=== PATIENT | male | born 1955 | race Two or more races ===

== ENCOUNTER 2024-12-07 00:42 | Inpatient (IN) | payer MEDICARE, OTHER ==
[~2024-12-07] VITALS: Ht 172.7 cm; Wt 74.0 kg
[2024-12-07 01:19] LABS: Hematocrit 22.4 % (41.0-53.0); Hemoglobin 7.6 g/dL (13.5-17.5); Mean Corpuscular Hemoglobin 27.1 pg (28.0-32.0); Mean Corpuscular Volume 80.3 fL (80.0-100.0); Nucleated Red Blood Cells % 0.1 %
--- NOTE | 2024-12-07 01:30 | ED.PDOC ---
History of Present Illness HPI Comments 69 y/o M, with a history of DM, presents with c/c of abnormal labs. Per EMS personnel report, patient received a call from his vascular physician after having outpatient lab work performed, earlier, and was advised to come to the ED. He reports on being told on ahving abnormally elevated blood glucose and po tassium levels. Patient is otherwise asymptomatic. Notable recent history of 1st great toe amputation of right foot. Time Seen by MD: 00:50 Reviewed Notes: Nurses Notes, Director Internal Control Notes, Medications, Allergies Allergies: Coded Allergies: NO KNOWN ALLERGIES (Unverified , 12/07/24) Information Source: Patient, Emergency Med Personnel Mode of Arrival: EMS Severity: Moderate Timing: Hours Duration: Since onset Prehospital treatment: None Past Medical History PAST MEDICAL HISTORY: DM Surgical History (Other): 1st digit on right foot amputation 5th digit on left foot amputation Family History Family History: Unknown Social History Smoker: Non-Smoker Alcohol: Denies ETOH Use Drugs: Denies Drug Use Lives In: Home All Other Systems: Reviewed and Negative (Comprehensive review of systems are negative unless stated in HPI) Physical Exam General Appearance: No Apparent Distress, Normal HEENT: Normal ENT Inspection, Pharynx Normal, TMs Normal Neck: Full Range of Motion, Non-Tender, Normal, Normal Inspection Respiratory: Chest Non-Tender, Lungs Clear, No Accessory Muscle Use, No Respiratory Distress, Normal Breath Sounds Cardiovascular: No Edema, No JVD, No Murmur, No Gallop, Normal Peripheral Pulses, Regular Rate/Rhythm Breast Exam: Deferred Gastrointestinal: No Organomegaly, Non Tender, No Pulsatile Mass, Normal Bowel Sounds, Soft Genitalia: Deferred Pelvic: Deferred Rectal: Deferred Extremities: No calf tenderness, Normal capillary refill, Normal range of motion, Non-tender, No pedal edema, Other (5th digit amputation to left foot; recent 1st digit amputation to right foot; dry gangrene to the 2nd right foot ) Musculoskeletal : Apperance: Normal Neurologic: Alert, systems qa analyst II-XII nml as Tested, No Motor Deficits, Normal Affect, Normal Mood, No Sensory Deficits Cerebellar Function: Normal Reflexes: Normal Skin: Dry, Normal Color, Warm, Other (dry gangrene to the 2nd right foot ) Lymphatic: No Adenopathy Was a procedure done? Was a procedure done?: No Differential Dx Considerations may include: unhealing diabetic foot wound, hyperkalemia, hyperglycemia, dehydration, electrolyte imbalance, among others X-Ray, Labs, Meds, VS Vital Signs Date Time Temp Pulse Resp B/P (MAP) Pulse Ox O2 Delivery O2 Flow Rate FiO2 12/07/24 02:10 105 90 Room Air* 0 21 12/07/24 02:10 98.7 105 15 170/84 (112) 90 98.7 12/07/24 01:11 113 12/07/24 01:10 98.2 120 18 189/98 99 98.2 Lab Test 12/07/24 01:00 Range/Units White Blood Count 9.2 4.4-10.8 10^3/uL Red Blood Count 2.79 L 4.5-5.90 10^6/uL Hemoglobin 7.6 L 13.5-17.5 g/dL Hematocrit 22.4 L 41.0-53.0 % Mean Corpuscular Volume 80.3 80.0-100.0 fL Mean Corpuscular Hemoglobin 27.1 L 28.0-32.0 pg Mean Corpuscular Hemoglobin Concent 33.8 32.0-36.0 g/dL Red Cell Distribution Width 13.9 11.8-14.3 % Platelet Count 579 H 140-450 10^3/uL Mean Platelet Volume 7.6 6.9-10.8 fL Neutrophils (%) (Auto) 84.3 H 37.0-80.0 % Lymphocytes (%) (Auto) 6.4 L 10.0-50.0 % Monocytes (%) (Auto) 6.4 0.0-12.0 % Eosinophils (%) (Auto) 1.5 0.0-7.0 % Basophils (%) (Auto) 1.4 0.0-2.0 % Neutrophils # (Auto) 7.7 1.6-8.6 10 ^3/uL Lymphocytes # (Auto) 0.6 0.4-5.4 10 ^3/uL Monocytes # (Auto) 0.6 0-1.3 10 ^3/uL Eosinophils # (Auto) 0.1 0-0.8 10 ^3/uL Basophils # (Auto) 0.1 0-0.2 10 ^3/uL Nucleated Red Blood Cells 0.1 % Prothrombin Time 11.3 9.3-11.8 sec Prothrombin Time INR 1.07 0.9-1.15 Activated Partial Thromboplast Time 28.5 24.5-34.5 SEC Sodium Level 135 L 136-145 mmol/L Potassium Level 5.3 H 3.5-5.1 mmol/L Chloride Level 100 98-107 mmol/L Carbon Dioxide Level 24 20-31 mmol/L Anion Gap 11 5-15 Blood Urea Nitrogen 25 H 9-23 mg/dL Creatinine 1.64 H 0.700-1.30 mg/dL Glomerular Filtration Rate Calc 46 >90 mL/min BUN/Creatinine Ratio 15.2 10.0-20.0 Serum Glucose 279 H 74-106 mg/dL Lactic Acid Level 1.2 0.4-2.0 mmol/L Calcium Level 8.6 L 8.7-10.4 mg/dL Total Bilirubin 0.3 0.2-1.0 mg/dL Aspartate Amino Transferase (AST) 12 L 13-40 U/L Alanine Aminotransferase (ALT) 13 7-40 U/L Alkaline Phosphatase 177 H 46-116 U/L Total Protein 7.2 5.7-8.2 g/dL Albumin 3.9 3.2-4.8 g/dL Time of 1ST Reevaluation: 01:20 Reevaluation 1ST: Unchanged Patient Education/Counseling: Diagnosis, Treatment, Need For Follow Up Family Education/Counseling: No Family Present SEPSIS Sepsis Screen Physician Orders Blood Culture (12/07/24 00:58) R Foot 3 View Xray (12/07/24 00:58) Chest Xray 1 View (12/07/24 00:58) Electrocardigram (12/07/24 01:18) Sodium Zirconium Cyclosilicate (Lokelma) (12/07/24 03:00) Vital Signs Date Time Temp Pulse Resp B/P (MAP) Pulse Ox O2 Delivery O2 Flow Rate FiO2 12/07/24 02:10 105 90 Room Air* 0 21 12/07/24 02:10 98.7 105 15 170/84 (112) 90 98.7 12/07/24 01:11 113 12/07/24 01:10 98.2 120 18 189/98 99 98.2 Laboratory Tests Test 12/07/24 01:00 Lactic Acid Level 1.2 mmol/L (0.4-2.0) White Blood Count 9.2 10^3/uL (4.4-10.8) Departure 1 Departure Time of Disposition: 02:51 Impression: Primary Impression: Cellulitis of right foot Additional Impressions: Dry gangrene Acute renal injury Hyperkalemia Anemia of chronic disease Type 2 diabetes mellitus with hyperglycemia Disposition: HOME / SELF CARE / HOMELESS Condition: Stable Discharged With: Self Comments 69-year-old male with recent right great toe amputation and poorly controlled diabetes now with right foot cellulitis, dry gangrene of right 2nd toe and acute renal injury with hyperkalemia. Patient was given Ancef and vancomycin antibiotics. Patient was given IV fluids and insulin. Patient will need to be admitted for supportive care and further workup. Critical Care Note Critical Care Time?: No Stability Stability form required: No Heart Score Heart Score: Heart Score Response (Comments) Value History N/A 0 EKG N/A 0 Age N/A 0 Risk Factors N/A 0 Troponin N/A 0 Total 0 I personally scribed for JAYDEN BETANCOURT MD ([email or web address]) on 12/07/24 at 01:30. Electronically submitted by Davian Brady ([email or web address]). JAYDEN BETANCOURT MD Dec 07, 2024 01:30
[2024-12-07 01:36] LABS: Alanine Aminotransferase 13 U/L (7-40); Albumin 3.9 g/dL (3.2-4.8); Anion Gap 11 (5-15); BUN/Creatinine Ratio 15.2 (10.0-20.0); Bilirubin, Total 0.3 mg/dL (0.2-1.0); Carbon Dioxide 24 mmol/L (20-31); Chloride 100 mmol/L (98-107); Total Protein 7.2 g/dL (5.7-8.2)
[2024-12-07 01:39] LABS: Alkaline Phosphatase 177 U/L (46-116); Blood Urea Nitrogen 25 mg/dL (9-23); Calcium 8.6 mg/dL (8.7-10.4); Glucose 279 mg/dL (74-106); Potassium 5.3 mmol/L (3.5-5.1); Sodium 135 mmol/L (136-145)
[2024-12-07 01:40] LABS: INR 1.07 (0.9-1.15); Partial Thromboplastin Time 28.5 SEC (24.5-34.5); Prothrombin Time 11.3 sec (9.3-11.8)
[2024-12-07 02:10] VITALS: PULSE 105; O2SAT 90
--- NOTE | 2024-12-07 02:12 | DVH ---
CHEST RADIOGRAPH Indication: SOB Technique: Single frontal view of the chest was obtained COMPARISON: XR CHEST 1 VIEW on DOS: 10/05/24 FINDINGS: Lines and Tubes: None Lungs: Diffuse increased prominence of the pulmonary vasculature and interstitium. No evidence of foc al consolidation. Pleura: No effusion. No pneumothorax. Cardiomediastinal contours: Unremarkable Bones: Unremarkable IMPRESSION: 1. Findings suggestive of pulmonary vascular congestion/interstitial edema.
--- NOTE | 2024-12-07 02:12 | DVH ---
CLINICAL INDICATION: right 2nd toe gangrene TECHNIQUE: XY R FOOT 3 VIEW XRAY Comparison: XR FOOT COMP RT on DOS: 10/05/24 FINDINGS/IMPRESSION: : Partial amputation of the 1st ray at the level of the proximal metatarsal diaphysis with expected ove rlying soft tissue changes. Scattered subcutaneous emphysema. No definite radiographic evidence of os teomyelitis. No evidence of acute osseous abnormality. The visualized joint spaces are well preserve d.
[2024-12-07] MEDS: VANCOMYCIN 1GM/250ML KIT 250 ML IV ONE (03:00)
[2024-12-07] MEDS: ceFAZolin 1GM/50ML 50 ML IV ONE (03:00)
[2024-12-07] MEDS: SODIUM ZIRCONIUM CYCL 10 GM PAK PO ONE (03:01)
[2024-12-07] MEDS: SODIUM CHLORIDE 0.9% 1,000 ML IV ONE (03:05)
[2024-12-07] MEDS: InsuLIN REG 1unit/0.01ml Soln (100units/ml) SC ONE (03:27)
[2024-12-07] MEDS: AMPICILLIN & SULBACTAM SODIUM 3 GM in SODIUM CHL 0.9% 100 ML IV ONE (03:45)
[2024-12-07] MEDS: hydrALAZINE HCL 20 MG/ML VL IV ONE (04:41)
[2024-12-07] MEDS: ALBUTEROL SULF 2.5 MG/0.5ML(0.5%) NEB SOLN NEB STA (04:54)
[2024-12-07] MEDS: IPRATROPIUM BROM 0.5 MG/2.5ML INH SOL NEB STA (04:54)
--- NOTE | 2024-12-07 05:37 | ECG ---
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
[2024-12-07] MEDS ORDERED: MORPHINE SULFATE INJ 2 MG/ml SYRG IV PRN (06:30)
[2024-12-07] MEDS ORDERED: SODIUM CHLORIDE 0.9% 1,000 ML IV ONE (06:30)
[2024-12-07] MEDS ORDERED: NITROGLYCERIN 0.4 MG SL TAB SL PRN (06:30)
[2024-12-07] MEDS: InsuLIN REG 1unit/0.01ml Soln (100units/ml) SC SCH ×2 (07:00→23:33)
[2024-12-07] MEDS ORDERED: DEXTROSE (50%) 50ML SYRG IV PRN (07:00)
[2024-12-07] MEDS: FUROSEMIDE 40 MG/4 ML VIAL IV ONE ×3 (07:13→16:44)
[2024-12-07] MEDS: ACCU-CHEK COMFORT CURVE STRIP VI SCH (07:15)
[2024-12-07 07:40] VITALS: PULSE 108; RESP 14; O2SAT 93
[2024-12-07 08:23] LABS: Base Excess -3.5 mmol/L (-2.0-3.0)
[2024-12-07] MEDS: PIPERACILLIN-TAZOB 3.375GM 100 ML IV SCH (08:30)
--- NOTE | 2024-12-07 08:55 | DVH ---
Procedure: CT CHEST WITHOUT CONTRAST Reason for study/Clinical History: pna/chf Comparison Study: XY CHEST XRAY 1 VIEW on DOS: 12/07/24, XR CHEST 1 VIEW on DOS: 10/05/24 TECHNIQUE: Multidetector CT of the chest was performed from the lung apices to the upper abdomen with out the use of intravenous contract. Axial, coronal and sagittal multiplanar reformats were performed . Radiation Dose Information: CT Dose: CTDI volume is 12.67 mGy. Dose-length product is 476.26 mGy*cm The dose indicators for CT are the volume Computed Tomography (CT) Dose Index (CTDIvol) and the Dose Length Product (DLP), and are measured in units of mGy and mGy-cm, respectively. These indicators are not patient dose, but values generated from the CT scanner acquisition factors. The report includes radiation exposure data for exposures received during this examination. FINDINGS: Lower neck: Unremarkable. Lungs: Patchy bilateral lower lobe airspace disease. Diffuse interlobular septal thickening. No focal consolidation. No suspicious pulmonary nodule. Heart/Vascular Structures: Cardiomegaly. Coronary artery calcifications. Vascular calcifications of t he aorta. No pericardial effusion. Lymph Nodes: No adenopathy. Pleura: Small bilateral pleural effusions. Musculoskeletal: No acute osseous abnormality. Soft tissues: Normal. Upper abdomen: Limited portions of the upper abdomen are unremarkable. IMPRESSION: Patchy bilateral lower lobe airspace disease. Diffuse interlobular septal thickening. Small bilateral pleural effusions. Cardiomegaly. Findings are suggestive of CHF/ pulmonary edema. Radiation optimization: All CT scans at this facility use at least one of these dose optimization kelly hniques: automated exposure control mA and/or kV adjustment per patient size (includes targeted exam s where dose is matched to clinical indication) or iterative reconstruction.
--- NOTE | 2024-12-07 09:09 | DVHHP2 ---
Admitting Diagnosis: Acute on chronic renal failure with hyperkalemia. Foot cellulitis with gangrene History of Present Illness HPI 69-year-old male with marginally cotrolled DM, amputated right big toe was referred to the ER by his doctor for further evaluation and therapy. His outpatient lab results were abnormal with elevated Cr, BUN, potassium level, glucose level. Patient has had right foot swelling and the second toe infection for several days. Past Medical History Cardiac: HTN, Hyperlipidemia, Other (obesity) Endocrine: NIDDM Review of Systems Musculoskeletal: Foot pain H&P Exam Vital Signs Vital Signs Date Time Temp Pulse Resp B/P (MAP) Pulse Ox O2 Delivery O2 Flow Rate FiO2 12/07/24 08:27 98.2 108 14 151/78 (102) 93 98.2 12/07/24 07:40 Simple Mask* 6 50 General Appeara: Obese Head Exam: Normal inspection Neck Exam: Non-tender Eye Exam: bilateral eye PERRL, bilateral eye EOMI Pulmonary/Respiratory: Crackles Cardiovascular/Chest: Tachycardia Abdominal Exam: Soft Foot: right foot ecchymosis, right foot infection, right foot swelling Neuro/Mental St: Alert, Oriented SEPSIS Sepsis Screen Date sepsis recognized/suspect: Dec 07, 2024 Time Sepsis recognized/suspect: 0740 Recent Procedure: Yes (1 MONTH AGO ) On Antibiotic Therapy: Yes Respiratory Rate >20: No Heart Rate >90: Yes Temp<36 C (96.8 F) or >38.3 C: No SBP <90 or MAP <65 mmHG: No New Acute Mental Status Change: No Is the patient on CPAP, BIPAP,: No Physician Orders Blood Culture (12/07/24 00:58) R Foot 3 View Xray (12/07/24 00:58) Chest Xray 1 View (12/07/24 00:58) Admit (12/07/24 06:30) Complete Blood Count (12/08/24 06:30) Comprehensive Metabolic Panel (12/08/24 06:30) Nitroglycerin Sublingual (Ntrostat Subli (12/07/24 06:30) Morphine Sulfate Injection (12/07/24 06:30) Stat Ekg For Chest Pain (12/07/24 06:30) Notify Of Changes From Base (12/07/24 06:30) Manager Pricing For 24 Hours (12/07/24 06:30) Emergency Dysrhythmia Protocol (12/07/24 06:30) Rhythm Strips Once Every Shift (12/07/24 06:30) Oxygen By Nasal Cannula (12/07/24 06:30) *[facility] (12/07/24 06:30) Vancomycin Per Pharmacy Protoc (12/07/24 06:30) Glucose Blood (Accu-Chek Comfort Curve T (12/07/24 07:00) Insulin R (Human) (Insulin R) (12/07/24 22:00) Insulin R (Human) (Insulin R) (12/07/24 07:00) Dextrose 50% Syringe (12/07/24 07:00) Echo 2d Mode Cardiac Dop (12/07/24 07:16) *Consult Dr.Mukeshchandra Brody (12/07/24 07:16) Chest Without Contrast (12/07/24 07:16) Abg W/ Co-Ox (12/07/24 07:16) Complete Blood Count (12/08/24 05:00) Complete Blood Count (12/09/24 05:00) Complete Blood Count (12/10/24 05:00) Complete Blood Count (12/11/24 05:00) Complete Blood Count (12/12/24 05:00) Complete Blood Count (12/13/24 05:00) Complete Blood Count (12/14/24 05:00) Complete Blood Count (12/15/24 05:00) Complete Blood Count (12/16/24 05:00) Complete Blood Count (12/17/24 05:00) Complete Blood Count (12/18/24 05:00) Basic Metabolic Panel (12/08/24 05:00) Basic Metabolic Panel (12/09/24 05:00) Basic Metabolic Panel (12/10/24 05:00) Basic Metabolic Panel (12/11/24 05:00) Basic Metabolic Panel (12/12/24 05:00) Basic Metabolic Panel (12/13/24 05:00) Basic Metabolic Panel (12/14/24 05:00) Basic Metabolic Panel (12/15/24 05:00) Basic Metabolic Panel (12/16/24 05:00) Basic Metabolic Panel (12/17/24 05:00) Basic Metabolic Panel (12/18/24 05:00) *Podiatry Consult Rosalina([facility]) (12/07/24 07:16) Urinalysis (12/07/24 07:22) Prothrombin Time W/ Inr (12/07/24 07:22) *Consult Dr. Fran Riley (12/07/24 07:22) Complete Blood Count (12/07/24 08:03) Basic Metabolic Panel (12/07/24 08:03) Hemoglobin A1c (12/07/24 08:04) B-Type Natriuretic Peptide (12/07/24 08:15) Communication Order (12/07/24 08:24) Piperacillin-Tazob 3.375gm (Zosyn 3.375g (12/07/24 08:30) Vital Signs Date Time Temp Pulse Resp B/P (MAP) Pulse Ox O2 Delivery O2 Flow Rate FiO2 12/07/24 08:27 98.2 108 14 151/78 (102) 93 98.2 12/07/24 07:40 108 14 93 Simple Mask* 6 50 12/07/24 07:30 151/78 12/07/24 07:13 137/68 12/07/24 05:00 119 29 163/84 (110) 98 12/07/24 04:58 25 98 Simple Mask* 10 99 12/07/24 04:41 186/100 12/07/24 04:00 115 25 164/86 (112) 98 12/07/24 03:00 108 19 165/88 (113) 87 12/07/24 02:10 105 90 Room Air* 0 21 12/07/24 02:10 98.7 105 15 170/84 (112) 90 98.7 12/07/24 01:11 113 12/07/24 01:10 98.2 120 18 189/98 99 98.2 Laboratory Tests Test 12/07/24 01:00 Lactic Acid Level 1.2 mmol/L (0.4-2.0) White Blood Count 9.2 10^3/uL (4.4-10.8) Medications Medications Dose Ordered Sig/Jessica Route Start Time Stop Time Status Last Admin Dose Admin Albuterol 5 mg ONCE STAT NEB 12/07/24 04:44 12/07/24 04:47 DC 12/07/24 04:54 5 MG Diagnostic Test (Pha) 1 strip ACHS 12/07/24 07:00 12/07/24 07:15 1 STRIP Furosemide 40 mg ONCE ONCE IV 12/07/24 06:30 12/07/24 06:50 DC 12/07/24 07:13 40 MG Furosemide 40 mg ONCE ONCE IV 12/07/24 07:30 12/07/24 07:40 DC 12/07/24 07:30 40 MG Hydralazine HCl 20 mg ONCE ONCE IV 12/07/24 04:45 12/07/24 04:46 DC 12/07/24 04:41 20 MG Insulin Human Regular AC SC 12/07/24 07:00 12/07/24 07:00 9 UNITS Insulin Human Regular 4 units ONCE ONCE SC 12/07/24 03:00 12/07/24 03:01 DC 12/07/24 03:27 4 UNITS Ipratropium [place] 0.5 mg ONCE STAT NEB 12/07/24 04:44 12/07/24 04:47 DC 12/07/24 04:54 0.5 MG Sodium Chloride 1,000 ml @ 1,000 mls/hr Q1H ONCE IV 12/07/24 03:00 12/07/24 03:59 DC 12/07/24 03:05 1,000 MLS/HR Zirconium Oxide 10 gm ONCE ONCE PO 12/07/24 03:00 12/07/24 03:01 DC 12/07/24 03:01 10 GM Labs/Xrays Labs Test 12/07/24 08:15 12/07/24 03:12 12/07/24 01:00 Range/Units Blood Gas Specimen Type Arterial Blood Gas Sample Site Right radial Blood Gas Patient Temperature 37.0 Arterial Blood Date Drawn [id number] Arterial Blood pH 7.461 H 7.350-7.450 Arterial Blood Partial Pressure CO2 28.4 L 35.0-48.0 mmHg Arterial Blood Partial Pressure O2 100.9 83.0-108.0 mmHg Arterial Blood HCO3 19.8 L 21.0-28.0 mmol/L Arterial Blood Oxygen Saturation 97.4 94.0-98.0 % Arterial Blood Base Excess -3.5 L -2.0-3.0 mmol/L Arterial Blood Oxyhemoglobin 96.6 94.0-98.0 % Arterial Blood Carboxyhemoglobin 0.2 L 0.5-1.5 % Arterial Blood Methemoglobin 0.6 0.0-1.5 % Samy Test Yes Blood Gas Total Hemoglobin 7.70 L 13.5-17.5 g/dL Blood Gas Liter Flow 6.00 Blood Gas Modality Mask - simple FiO2 % 40.0 POC Glucose 245 H 70-106 mg/dl White Blood Count 9.2 4.4-10.8 10^3/uL Red Blood Count 2.79 L 4.5-5.90 10^6/uL Hemoglobin 7.6 L 13.5-17.5 g/dL Hematocrit 22.4 L 41.0-53.0 % Mean Corpuscular Volume 80.3 80.0-100.0 fL Mean Corpuscular Hemoglobin 27.1 L 28.0-32.0 pg Mean Corpuscular Hemoglobin Concent 33.8 32.0-36.0 g/dL Red Cell Distribution Width 13.9 11.8-14.3 % Platelet Count 579 H 140-450 10^3/uL Mean Platelet Volume 7.6 6.9-10.8 fL Neutrophils (%) (Auto) 84.3 H 37.0-80.0 % Lymphocytes (%) (Auto) 6.4 L 10.0-50.0 % Monocytes (%) (Auto) 6.4 0.0-12.0 % Eosinophils (%) (Auto) 1.5 0.0-7.0 % Basophils (%) (Auto) 1.4 0.0-2.0 % Neutrophils # (Auto) 7.7 1.6-8.6 10 ^3/uL Lymphocytes # (Auto) 0.6 0.4-5.4 10 ^3/uL Monocytes # (Auto) 0.6 0-1.3 10 ^3/uL Eosinophils # (Auto) 0.1 0-0.8 10 ^3/uL Basophils # (Auto) 0.1 0-0.2 10 ^3/uL Nucleated Red Blood Cells 0.1 % Prothrombin Time 11.3 9.3-11.8 sec Prothrombin Time INR 1.07 0.9-1.15 Activated Partial Thromboplast Time 28.5 24.5-34.5 SEC Sodium Level 135 L 136-145 mmol/L Potassium Level 5.3 H 3.5-5.1 mmol/L Chloride Level 100 98-107 mmol/L Carbon Dioxide Level 24 20-31 mmol/L Anion Gap 11 5-15 Blood Urea Nitrogen 25 H 9-23 mg/dL Creatinine 1.64 H 0.700-1.30 mg/dL Glomerular Filtration Rate Calc 46 >90 mL/min BUN/Creatinine Ratio 15.2 10.0-20.0 Serum Glucose 279 H 74-106 mg/dL Lactic Acid Level 1.2 0.4-2.0 mmol/L Calcium Level 8.6 L 8.7-10.4 mg/dL Total Bilirubin 0.3 0.2-1.0 mg/dL Aspartate Amino Transferase (AST) 12 L 13-40 U/L Alanine Aminotransferase (ALT) 13 7-40 U/L Alkaline Phosphatase 177 H 46-116 U/L Total Protein 7.2 5.7-8.2 g/dL Albumin 3.9 3.2-4.8 g/dL Assessment/Plan Problem List: (1) Acute kidney injury superimposed on CKD (2) Cellulitis of right foot (3) Dry gangrene (4) Type 2 diabetes mellitus with hyperglycemia Plan IVF, IV Abx, Podiatry consult, Nephrology consult Plan discussed with: Patient ODETTE LEDBETTER MD Dec 07, 2024 09:09
[2024-12-07 09:21] LABS: Hematocrit 22.1 % (41.0-53.0); Hemoglobin 7.3 g/dL (13.5-17.5); Mean Corpuscular Hemoglobin 26.8 pg (28.0-32.0); Mean Corpuscular Volume 81.3 fL (80.0-100.0); Nucleated Red Blood Cells % 0.0 %
[2024-12-07 09:31] LABS: Chloride 103 mmol/L (98-107); Potassium 4.7 mmol/L (3.5-5.1)
[2024-12-07 09:32] LABS: Anion Gap 10 (5-15); Carbon Dioxide 22 mmol/L (20-31)
[2024-12-07 09:33] LABS: INR 1.13 (0.9-1.15); Prothrombin Time 11.8 sec (9.3-11.8)
[2024-12-07 09:37] LABS: BUN/Creatinine Ratio 16.3 (10.0-20.0); Blood Urea Nitrogen 27 mg/dL (9-23); Calcium 8.1 mg/dL (8.7-10.4); Glucose 190 mg/dL (74-106); Sodium 135 mmol/L (136-145)
[2024-12-07 11:00] VITALS: PULSE 103; RESP 16; O2SAT 100
--- NOTE | 2024-12-07 12:23 | DVHCONRES ---
Date Seen: Dec 07, 2024 Reason for Consultation Right foot gangrene History of Present Illness 69-year-old male with marginally cotrolled DM, amputated right big toe was referred to the ER by his doctor for further evaluation and therapy. His outpatient lab results were abnormal with elevated Cr, BUN, potassium level, glucose level. Patient has had right foot swelling and the second toe infection for several days. Past Medical History See H&P Past Surgical History See H&P Allergies: Coded Allergies: NO KNOWN ALLERGIES (Unverified , 12/07/24) Current Medications Current Medications Medications (Trade) Dose Ordered Sig/Jessica Route PRN Reason Start Time Stop Time Status Last Admin Albuterol (Ventolin Medneb) 5 mg ONCE STAT NEB 12/07/24 04:44 12/07/24 04:47 DC 12/07/24 04:54 Ipratropium [place] (Atrovent Medneb) 0.5 mg ONCE STAT NEB 12/07/24 04:44 12/07/24 04:47 DC 12/07/24 04:54 Nitroglycerin (Ntrostat Sublingual) 0.4 mg Q5MINP PRN SL FOR CHEST PAIN 12/07/24 06:30 Morphine Sulfate 2 mg Q30M PRN IV FOR CHEST PAIN 12/07/24 06:30 Piperacillin Sod/ Tazobactam Sod 100 ml @ 100 mls/hr Q8HR IV 12/07/24 14:00 12/07/24 08:30 DC Diagnostic Test (Pha) (Accu-Chek Comfort Curve T) 1 strip ACHS 12/07/24 07:00 12/07/24 11:30 Insulin Human Regular (InsuLIN R) HS SC 12/07/24 22:00 Insulin Human Regular (InsuLIN R) AC SC 12/07/24 07:00 12/07/24 11:30 Dextrose 50 ml UD PRN IV Blood Sugar LESS THAN 60 12/07/24 07:00 Piperacillin Sod/ Tazobactam Sod 100 ml @ 25 mls/hr Q8HR IV 12/07/24 08:30 12/07/24 08:30 Furosemide (Lasix Injection) 40 mg DAILY IV 12/08/24 10:00 Vital Signs Vital Signs Date Time Temp Pulse Resp B/P (MAP) Pulse Ox O2 Delivery O2 Flow Rate FiO2 12/07/24 08:27 98.2 108 14 151/78 (102) 93 98.2 12/07/24 07:40 Simple Mask* 6 50 Physical Exam Dermatological: Skin is dry with mild erythema and some maceration around the wound site No gross deformities noted Mild non-pitting edema present bilaterally Gangrene right foot toe with some surrounding cellulitis and medial foot wound Vascular: Dorsalis pedis and posterior tibial pulses are 1+ bilaterally Capillary refill is under 2 seconds Skin temperature is warm bilaterally Neurologic: Protective sensation is absent on the plantar forefoot bilaterally Monofilament testing reveals decreased sensation in multiple plantar sites Musculoskeletal: Range of motion at the ankle and MTP joints is within normal limits. Strength is 5/5 in all tested muscle groups. Gait is antalgic due to offloading of the affected limb. Labs/Diagnostic Data Labs Test 12/07/24 11:38 12/07/24 08:58 12/07/24 08:15 12/07/24 01:00 Range/Units POC Glucose 131 H 70-106 mg/dl White Blood Count 12.1 #H 4.4-10.8 10^3/uL Red Blood Count 2.73 L 4.5-5.90 10^6/uL Hemoglobin 7.3 L 13.5-17.5 g/dL Hematocrit 22.1 L 41.0-53.0 % Mean Corpuscular Volume 81.3 80.0-100.0 fL Mean Corpuscular Hemoglobin 26.8 L 28.0-32.0 pg Mean Corpuscular Hemoglobin Concent 32.9 32.0-36.0 g/dL Red Cell Distribution Width 13.8 11.8-14.3 % Platelet Count 571 H 140-450 10^3/uL Mean Platelet Volume 7.7 6.9-10.8 fL Neutrophils (%) (Auto) 91.5 H 37.0-80.0 % Lymphocytes (%) (Auto) 3.3 L 10.0-50.0 % Monocytes (%) (Auto) 4.4 0.0-12.0 % Eosinophils (%) (Auto) 0.0 0.0-7.0 % Basophils (%) (Auto) 0.8 0.0-2.0 % Neutrophils # (Auto) 11.1 H 1.6-8.6 10 ^3/uL Lymphocytes # (Auto) 0.4 0.4-5.4 10 ^3/uL Monocytes # (Auto) 0.5 0-1.3 10 ^3/uL Eosinophils # (Auto) 0 0-0.8 10 ^3/uL Basophils # (Auto) 0.1 0-0.2 10 ^3/uL Nucleated Red Blood Cells 0.0 % Prothrombin Time 11.8 9.3-11.8 sec Prothrombin Time INR 1.13 0.9-1.15 Sodium Level 135 L 136-145 mmol/L Potassium Level 4.7 3.5-5.1 mmol/L Chloride Level 103 98-107 mmol/L Carbon Dioxide Level 22 20-31 mmol/L Anion Gap 10 5-15 Blood Urea Nitrogen 27 H 9-23 mg/dL Creatinine 1.66 H 0.700-1.30 mg/dL Glomerular Filtration Rate Calc 45 >90 mL/min BUN/Creatinine Ratio 16.3 10.0-20.0 Serum Glucose 190 H 74-106 mg/dL Hemoglobin A1c 9.8 H <5.7 % A1C Calcium Level 8.1 L 8.7-10.4 mg/dL B-Type Natriuretic Peptide 1619.77 0-100 pg/mL Blood Gas Specimen Type Arterial Blood Gas Sample Site Right radial Blood Gas Patient Temperature 37.0 Arterial Blood Date Drawn [id number] Arterial Blood pH 7.461 H 7.350-7.450 Arterial Blood Partial Pressure CO2 28.4 L 35.0-48.0 mmHg Arterial Blood Partial Pressure O2 100.9 83.0-108.0 mmHg Arterial Blood HCO3 19.8 L 21.0-28.0 mmol/L Arterial Blood Oxygen Saturation 97.4 94.0-98.0 % Arterial Blood Base Excess -3.5 L -2.0-3.0 mmol/L Arterial Blood Oxyhemoglobin 96.6 94.0-98.0 % Arterial Blood Carboxyhemoglobin 0.2 L 0.5-1.5 % Arterial Blood Methemoglobin 0.6 0.0-1.5 % Samy Test Yes Blood Gas Total Hemoglobin 7.70 L 13.5-17.5 g/dL Blood Gas Liter Flow 6.00 Blood Gas Modality Mask - simple FiO2 % 40.0 Activated Partial Thromboplast Time 28.5 24.5-34.5 SEC Lactic Acid Level 1.2 0.4-2.0 mmol/L Total Bilirubin 0.3 0.2-1.0 mg/dL Aspartate Amino Transferase (AST) 12 L 13-40 U/L Alanine Aminotransferase (ALT) 13 7-40 U/L Alkaline Phosphatase 177 H 46-116 U/L Total Protein 7.2 5.7-8.2 g/dL Albumin 3.9 3.2-4.8 g/dL Problems(with codes): (1) Hyperkalemia (2) Anemia of chronic disease (3) Cellulitis of right foot (4) Dry gangrene (5) Type 2 diabetes mellitus with hyperglycemia (6) Acute renal injury (7) Acute kidney injury superimposed on CKD Plan/Recommendation ASSESSMENT: Patient is a 69 year old seen on the floor for a worsening ulcer PLAN: - The patients chart was reviewed, clinical findings were discussed with the patient, the etiologies of the conditions were discussed in detail, and a treatment plan was agreed to at this time, with both oral and written instr uctions provided. - reviewed advanced imaging - discussed that the 2nd toe needs to be amputated at some point due to the gangrene - can continue using the wound VAC - recommend vascular optimizes his foot - continue antibiotics All questions were answered and concerns addressed to the patient's satisfaction. The patient was given the phone number to the clinic and was told how to make contact with the clinic should any concerns or questions arise. Patient understands that if any questions or concerns arise prior to the next appointment, we should be contacted immediately. FOLLOW-UP: Continue to follow while inpatient Plan discussed with: Patient Visit Coding Podiatry Date of Service if different f: Dec 07, 2024 Billing Provider: ESTEBAN CHRISTINE DPM Podiatry Common Visit Codes: CONSULT ONLY Podiatry Consult Codes: 05217-OA/OBS CONSLTJ NEW/EST HI 80 ESTEBAN CHRISTINE DPM Dec 07, 2024 12:23
[2024-12-07] MEDS ORDERED: VANCOMYCIN PER PHARMACY 0 MG IV SCH (13:00)
[2024-12-07 13:29] LABS: Urine Protein, UAD 1+ (Negative)
[2024-12-07] MEDS ORDERED: PIPERACILLIN-TAZOB 3.375GM 100 ML IV SCH (14:00)
--- NOTE | 2024-12-07 15:40 | DVH ---
CLINICAL HISTORY: AGATA TECHNIQUE: Complete ultrasound exam of the kidneys and bladder was performed. COMPARISON: None FINDINGS: The right kidney has normal echogenicity and measures 11.7 cm. There is no focal parenchymal abnormal ity or evidence for stone. There is no hydronephrosis. The left kidney has normal echogenicity and measures 10.9 cm. There is no focal parenchymal abnormal ity or evidence for stone. There is no hydronephrosis. The bladder is distended with a volume of 441 mL. There are bilateral ureteral jets. The prostate gl and volume is 46 mL. The distal ureters remeasure. Dilated, measuring 9 mm on the right and 11 mm on the left. IMPRESSION: Distended bladder with volume equals 441 mL. Distal ureters were measured and appear dilated, measuring 9 mm on the right and 11 mm on the left.
[2024-12-07 15:45] LABS: Protein, Urine 56.42 mg/dL (1-14)
[2024-12-07] MEDS: VANCOMYCIN 1.25GM/250ML 250 ML IV ONE (15:52)
[2024-12-07 17:38] LABS: Total Iron Binding Capacity 251.0 ug/dL (250-425)
--- NOTE | 2024-12-07 17:46 | DVHCONRES ---
Date Seen: Dec 07, 2024 Resident Creating Document: NEHEMIAS BRIGHT Jr., MD Referring Physician er Reason for Consultation pvd History of Present Illness 69 y/o M, with a history of DM, presents with c/c of abnormal labs. Per EMS personnel report, patient received a call from his vascular physician after having outpatient lab work performed, earlier, and was advised to come to the ED. He reports on being told on having abnormally elevated blood glucose and potassium levels. Patient is otherwise asymptomatic. Notable recent history of 1st great toe amputation of right foot and angiogram by vascular surgeon in [place]. currently has a wound vac and right 2nd toe gangrene Past Medical History dm Past Surgical History angiogram, right 1st toe amputation Social History non smoker Allergies: Coded Allergies: NO KNOWN ALLERGIES (Unverified , 12/07/24) Current Medications Current Medications Medications (Trade) Dose Ordered Sig/Jessica Route PRN Reason Start Time Stop Time Status Last Admin Albuterol (Ventolin Medneb) 5 mg ONCE STAT NEB 12/07/24 04:44 12/07/24 04:47 DC 12/07/24 04:54 Ipratropium [place] (Atrovent Medneb) 0.5 mg ONCE STAT NEB 12/07/24 04:44 12/07/24 04:47 DC 12/07/24 04:54 Nitroglycerin (Ntrostat Sublingual) 0.4 mg Q5MINP PRN SL FOR CHEST PAIN 12/07/24 06:30 Morphine Sulfate 2 mg Q30M PRN IV FOR CHEST PAIN 12/07/24 06:30 Piperacillin Sod/ Tazobactam Sod 100 ml @ 100 mls/hr Q8HR IV 12/07/24 14:00 12/07/24 08:30 DC Diagnostic Test (Pha) (Accu-Chek Comfort Curve T) 1 strip ACHS 12/07/24 07:00 12/07/24 16:54 Insulin Human Regular (InsuLIN R) HS SC 12/07/24 22:00 Insulin Human Regular (InsuLIN R) AC SC 12/07/24 07:00 12/07/24 16:58 Dextrose 50 ml UD PRN IV Blood Sugar LESS THAN 60 12/07/24 07:00 Piperacillin Sod/ Tazobactam Sod 100 ml @ 25 mls/hr Q8HR IV 12/07/24 08:30 12/07/24 14:37 Furosemide (Lasix Injection) 40 mg DAILY IV 12/08/24 10:00 Vancomycin HCl 0 ml @ 0 mls/hr UD IV 12/07/24 13:00 Review of Systems all systems reviewed otherwise negative Vital Signs Vital Signs Date Time Temp Pulse Resp B/P (MAP) Pulse Ox O2 Delivery O2 Flow Rate FiO2 12/07/24 17:00 98.5 106 16 155/76 (102) 100 98.5 12/07/24 11:00 Simple Mask* 6 50 Physical Exam bilateral femoral pulses palpable non palpable pedal pulses. right foot dry gangrene of 2nd toe with wound vac in place Labs/Diagnostic Data Labs Test 12/07/24 16:53 12/07/24 12:51 12/07/24 08:58 12/07/24 08:15 Range/Units POC Glucose 145 H 70-106 mg/dl Urine Color Colorless Yellow Urine Clarity Clear Clear Urine pH 6.0 5.0-9.0 Urine Specific [place] 1.008 1.001-1.035 Urine Protein 1+ H Negative Urine Ketones Negative Negative Urine Blood Negative Negative /uL Urine Nitrite Negative Negative Urine Bilirubin Negative Negative Urine Urobilinogen Normal Negative mg/dL Urine Leukocyte Esterase Negative Negative /uL Urine RBC <1 0 - 3 /hpf Urine Microscopic WBC < 1 0-3 /HPF Urine Squamous Epithelial Cells None seen <5 /hpf Urine Bacteria None seen None Seen /hpf Urine Creatinine 30.41 30.0-125.0 mg/dL Urine Protein/Creatinine Ratio 1.86 Urine Sodium 94 40-220 mmol/L Urine Glucose Normal Normal mg/dL Urine Total Protein 56.42 H 1-14 mg/dL White Blood Count 12.1 #H 4.4-10.8 10^3/uL Red Blood Count 2.73 L 4.5-5.90 10^6/uL Hemoglobin 7.3 L 13.5-17.5 g/dL Hematocrit 22.1 L 41.0-53.0 % Mean Corpuscular Volume 81.3 80.0-100.0 fL Mean Corpuscular Hemoglobin 26.8 L 28.0-32.0 pg Mean Corpuscular Hemoglobin Concent 32.9 32.0-36.0 g/dL Red Cell Distribution Width 13.8 11.8-14.3 % Platelet Count 571 H 140-450 10^3/uL Mean Platelet Volume 7.7 6.9-10.8 fL Neutrophils (%) (Auto) 91.5 H 37.0-80.0 % Lymphocytes (%) (Auto) 3.3 L 10.0-50.0 % Monocytes (%) (Auto) 4.4 0.0-12.0 % Eosinophils (%) (Auto) 0.0 0.0-7.0 % Basophils (%) (Auto) 0.8 0.0-2.0 % Neutrophils # (Auto) 11.1 H 1.6-8.6 10 ^3/uL Lymphocytes # (Auto) 0.4 0.4-5.4 10 ^3/uL Monocytes # (Auto) 0.5 0-1.3 10 ^3/uL Eosinophils # (Auto) 0 0-0.8 10 ^3/uL Basophils # (Auto) 0.1 0-0.2 10 ^3/uL Nucleated Red Blood Cells 0.0 % Prothrombin Time 11.8 9.3-11.8 sec Prothrombin Time INR 1.13 0.9-1.15 Sodium Level 135 L 136-145 mmol/L Potassium Level 4.7 3.5-5.1 mmol/L Chloride Level 103 98-107 mmol/L Carbon Dioxide Level 22 20-31 mmol/L Anion Gap 10 5-15 Blood Urea Nitrogen 27 H 9-23 mg/dL Creatinine 1.66 H 0.700-1.30 mg/dL Glomerular Filtration Rate Calc 45 >90 mL/min BUN/Creatinine Ratio 16.3 10.0-20.0 Serum Glucose 190 H 74-106 mg/dL Hemoglobin A1c 9.8 H <5.7 % A1C Calcium Level 8.1 L 8.7-10.4 mg/dL Phosphorus Level 2.9 2.4-5.1 mg/dL B-Type Natriuretic Peptide 1619.77 0-100 pg/mL Parathyroid Hormone (Intact) 103.5 H 18.4-80.1 pg/mL Blood Gas Specimen Type Arterial Blood Gas Sample Site Right radial Blood Gas Patient Temperature 37.0 Arterial Blood Date Drawn [id number] Arterial Blood pH 7.461 H 7.350-7.450 Arterial Blood Partial Pressure CO2 28.4 L 35.0-48.0 mmHg Arterial Blood Partial Pressure O2 100.9 83.0-108.0 mmHg Arterial Blood HCO3 19.8 L 21.0-28.0 mmol/L Arterial Blood Oxygen Saturation 97.4 94.0-98.0 % Arterial Blood Base Excess -3.5 L -2.0-3.0 mmol/L Arterial Blood Oxyhemoglobin 96.6 94.0-98.0 % Arterial Blood Carboxyhemoglobin 0.2 L 0.5-1.5 % Arterial Blood Methemoglobin 0.6 0.0-1.5 % Samy Test Yes Blood Gas Total Hemoglobin 7.70 L 13.5-17.5 g/dL Blood Gas Liter Flow 6.00 Blood Gas Modality Mask - simple FiO2 % 40.0 Test 12/07/24 07:17 12/07/24 01:00 Range/Units Activated Partial Thromboplast Time 28.5 24.5-34.5 SEC Lactic Acid Level 1.2 0.4-2.0 mmol/L Total Bilirubin 0.3 0.2-1.0 mg/dL Aspartate Amino Transferase (AST) 12 L 13-40 U/L Alanine Aminotransferase (ALT) 13 7-40 U/L Alkaline Phosphatase 177 H 46-116 U/L Total Protein 7.2 5.7-8.2 g/dL Albumin 3.9 3.2-4.8 g/dL Assessment 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 rec. arterial duplex of bilateral lower extremities. 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 rec. arterial duplex of bilateral lower extremities. strict glucose control, Plan discussed with: Patient NEHEMIAS BRIGHT Jr., MD Dec 07, 2024 17:46
[2024-12-07] MEDS: ENALAPRIL MALEATE 10 MG TAB PO ONE (18:00)
--- NOTE | 2024-12-07 18:07 | DVHCONRES ---
Date Seen: Dec 07, 2024 Resident Creating Document: ODILON DAVEY RESIDENT Referring Physician MD KHLOE Reason for Consultation AGATA on CKD History of Present Illness This is a 69 yr old male with past medical history of hypertension, type 2 diabetes mellitus, PAD, status post amputation of right big toe was referred to the ER by his physician because of abnormal lab with elevated creatinine, BUN, potassium level, glucose level. Patient was seen and examined on the bedside. He is alert oriented x3. complaint of pain in the right foot and no other active complaint. Past Medical History hypertension, type 2 diabetes mellitus, PAD, Past Surgical History Status post right great toe amputation Allergies: Coded Allergies: NO KNOWN ALLERGIES (Unverified , 12/07/24) Current Medications Current Medications Medications (Trade) Dose Ordered Sig/Jessica Route PRN Reason Start Time Stop Time Status Last Admin Albuterol (Ventolin Medneb) 5 mg ONCE STAT NEB 12/07/24 04:44 12/07/24 04:47 DC 12/07/24 04:54 Ipratropium [place] (Atrovent Medneb) 0.5 mg ONCE STAT NEB 12/07/24 04:44 12/07/24 04:47 DC 12/07/24 04:54 Nitroglycerin (Ntrostat Sublingual) 0.4 mg Q5MINP PRN SL FOR CHEST PAIN 12/07/24 06:30 Morphine Sulfate 2 mg Q30M PRN IV FOR CHEST PAIN 12/07/24 06:30 Piperacillin Sod/ Tazobactam Sod 100 ml @ 100 mls/hr Q8HR IV 12/07/24 14:00 12/07/24 08:30 DC Diagnostic Test (Pha) (Accu-Chek Comfort Curve T) 1 strip ACHS 12/07/24 07:00 12/07/24 16:54 Insulin Human Regular (InsuLIN R) HS SC 12/07/24 22:00 Insulin Human Regular (InsuLIN R) AC SC 12/07/24 07:00 12/07/24 16:58 Dextrose 50 ml UD PRN IV Blood Sugar LESS THAN 60 12/07/24 07:00 Piperacillin Sod/ Tazobactam Sod 100 ml @ 25 mls/hr Q8HR IV 12/07/24 08:30 12/07/24 14:37 Furosemide (Lasix Injection) 40 mg DAILY IV 12/08/24 10:00 Vancomycin HCl 0 ml @ 0 mls/hr UD IV 12/07/24 13:00 Enalapril [place] (Vasotec Tablet) 20 mg DAILY PO 12/08/24 10:00 UNV Amlodipine Besylate (Norvasc Tablet) 10 mg DAILY PO 12/08/24 10:00 UNV Review of Systems Constitutional: No: Fever, Chills, Sweats, Weakness, Malaise, Other Eyes: No: Pain, Vision change, Conjunctivae inflammation, Eyelid inflammation, Other, Redness ENT: No: Ear pain, Ear discharge, Nose pain, Nose discharge, Nose congestion, Mouth pain, Mouth swelling, Throat pain, Throat swelling, Other Respiratory: Shortness of breath, improving No: Cough, Dry,Wheezing, Hemoptysis, Pleuritic Pain, Sputum, Wheezing, Other Cardiovascular: No: Chest Pain, Palpitations, Orthopnea, Paroxysmal Noc. Dyspnea, Edema, Lt Headedness, Other Gastrointestinal: No: Nausea, Vomiting, Abdominal Pain, Diarrhea, Constipation, Melena, Hematochezia, Other Musculoskeletal: Rt foot pain, No: other, neck pain, shoulder pain, arm pain, back pain, hand pain, leg pain. Neurological:; No: Weakness, Numbness, Incoordination, Change in speech, Confusion, Seizures Vital Signs Vital Signs Date Time Temp Pulse Resp B/P (MAP) Pulse Ox O2 Delivery O2 Flow Rate FiO2 12/07/24 17:00 98.5 106 16 155/76 (102) 100 98.5 12/07/24 11:00 Simple Mask* 6 50 Physical Exam Physical examination: General Appearance: Alert, Oriented X3, Cooperative, No acute distress HEENT: Atraumatic, PERRLA, EOMI, Mucous membrane moist/pink Respiratory: Clear to auscultation, Normal air movement Cardiovascular: Regular rate, Normal S1, Normal S2, No murmurs, no chest wall tenderness Abdominal: Normal bowel sounds, Soft, No tenderness, No hepatospenomegaly, No masses Extremities: status post amputation of right big toe, gangrene of the right 2nd toe, No clubbing, No cyanosis, No edema, Normal pulses, No tenderness/swelling Skin: No rashes, No breakdown, No significant lesion Neuro: Normal speech, Strength at 5/5 X4 ext, Normal tone, Sensation intact, Cranial nerves 3-12 NL, Reflexes 2+ Psych/Mental Status: Mental status NL, Mood NL Labs/Diagnostic Data Labs Test 12/07/24 16:53 12/07/24 12:51 12/07/24 08:58 12/07/24 08:15 Range/Units POC Glucose 145 H 70-106 mg/dl Urine Color Colorless Yellow Urine Clarity Clear Clear Urine pH 6.0 5.0-9.0 Urine Specific [place] 1.008 1.001-1.035 Urine Protein 1+ H Negative Urine Ketones Negative Negative Urine Blood Negative Negative /uL Urine Nitrite Negative Negative Urine Bilirubin Negative Negative Urine Urobilinogen Normal Negative mg/dL Urine Leukocyte Esterase Negative Negative /uL Urine RBC <1 0 - 3 /hpf Urine Microscopic WBC < 1 0-3 /HPF Urine Squamous Epithelial Cells None seen <5 /hpf Urine Bacteria None seen None Seen /hpf Urine Creatinine 30.41 30.0-125.0 mg/dL Urine Protein/Creatinine Ratio 1.86 Urine Sodium 94 40-220 mmol/L Urine Glucose Normal Normal mg/dL Urine Total Protein 56.42 H 1-14 mg/dL White Blood Count 12.1 #H 4.4-10.8 10^3/uL Red Blood Count 2.73 L 4.5-5.90 10^6/uL Hemoglobin 7.3 L 13.5-17.5 g/dL Hematocrit 22.1 L 41.0-53.0 % Mean Corpuscular Volume 81.3 80.0-100.0 fL Mean Corpuscular Hemoglobin 26.8 L 28.0-32.0 pg Mean Corpuscular Hemoglobin Concent 32.9 32.0-36.0 g/dL Red Cell Distribution Width 13.8 11.8-14.3 % Platelet Count 571 H 140-450 10^3/uL Mean Platelet Volume 7.7 6.9-10.8 fL Neutrophils (%) (Auto) 91.5 H 37.0-80.0 % Lymphocytes (%) (Auto) 3.3 L 10.0-50.0 % Monocytes (%) (Auto) 4.4 0.0-12.0 % Eosinophils (%) (Auto) 0.0 0.0-7.0 % Basophils (%) (Auto) 0.8 0.0-2.0 % Neutrophils # (Auto) 11.1 H 1.6-8.6 10 ^3/uL Lymphocytes # (Auto) 0.4 0.4-5.4 10 ^3/uL Monocytes # (Auto) 0.5 0-1.3 10 ^3/uL Eosinophils # (Auto) 0 0-0.8 10 ^3/uL Basophils # (Auto) 0.1 0-0.2 10 ^3/uL Nucleated Red Blood Cells 0.0 % Prothrombin Time 11.8 9.3-11.8 sec Prothrombin Time INR 1.13 0.9-1.15 Sodium Level 135 L 136-145 mmol/L Potassium Level 4.7 3.5-5.1 mmol/L Chloride Level 103 98-107 mmol/L Carbon Dioxide Level 22 20-31 mmol/L Anion Gap 10 5-15 Blood Urea Nitrogen 27 H 9-23 mg/dL Creatinine 1.66 H 0.700-1.30 mg/dL Glomerular Filtration Rate Calc 45 >90 mL/min BUN/Creatinine Ratio 16.3 10.0-20.0 Serum Glucose 190 H 74-106 mg/dL Hemoglobin A1c 9.8 H <5.7 % A1C Calcium Level 8.1 L 8.7-10.4 mg/dL Phosphorus Level 2.9 2.4-5.1 mg/dL B-Type Natriuretic Peptide 1619.77 0-100 pg/mL Parathyroid Hormone (Intact) 103.5 H 18.4-80.1 pg/mL Blood Gas Specimen Type Arterial Blood Gas Sample Site Right radial Blood Gas Patient Temperature 37.0 Arterial Blood Date Drawn [id number] Arterial Blood pH 7.461 H 7.350-7.450 Arterial Blood Partial Pressure CO2 28.4 L 35.0-48.0 mmHg Arterial Blood Partial Pressure O2 100.9 83.0-108.0 mmHg Arterial Blood HCO3 19.8 L 21.0-28.0 mmol/L Arterial Blood Oxygen Saturation 97.4 94.0-98.0 % Arterial Blood Base Excess -3.5 L -2.0-3.0 mmol/L Arterial Blood Oxyhemoglobin 96.6 94.0-98.0 % Arterial Blood Carboxyhemoglobin 0.2 L 0.5-1.5 % Arterial Blood Methemoglobin 0.6 0.0-1.5 % Samy Test Yes Blood Gas Total Hemoglobin 7.70 L 13.5-17.5 g/dL Blood Gas Liter Flow 6.00 Blood Gas Modality Mask - simple FiO2 % 40.0 Test 12/07/24 07:17 12/07/24 01:00 Range/Units Activated Partial Thromboplast Time 28.5 24.5-34.5 SEC Lactic Acid Level 1.2 0.4-2.0 mmol/L Total Bilirubin 0.3 0.2-1.0 mg/dL Aspartate Amino Transferase (AST) 12 L 13-40 U/L Alanine Aminotransferase (ALT) 13 7-40 U/L Alkaline Phosphatase 177 H 46-116 U/L Total Protein 7.2 5.7-8.2 g/dL Albumin 3.9 3.2-4.8 g/dL Assessment Assessment and plan: # AGATA likely prerenal, hemodynamically mediated # possible AGATA superimposed on CKD # Hyperkalemia resolved # Secondary hyperparathyroidism # Hypertensive emergency # Anemia of chronic disease # uncontrolled type 2 diabetes mellitus, hemoglobin A1c 9.8 # peripheral arterial disease, status post amputation of right big toe # possible cellulitis of the right foot Plan: - ultrasound demonstrated distended bladder with volume 441 mL with dilated distal ureters - ordered post vital bladder scan to check the residual volume of urine - ordered urine sodium, creatinine, protein creatinine ratio to calculate FENA - continue enalapril 20 mg daily, amlodipine 10 mg daily to optimize control of blood pressure - insulin sliding scale - ordered iron panel, ferritin, vitamin-D - Recommended ID consultation for judicial use of IV antibiotic considering AGATA - strict I&O - monitor BMP Thank you so much for the opportunity to consult on your patient. Nephro team will follow the patient. In case of any questions or concerns please feel free to reach out. Plan discussed with . The patient and caregiver team agreed to the plan. Addendum Patient seen and examined, plan discussed with resident. Agree with above, we will follow closely Plan discussed with: Patient, Other ODILON DAVEY Dec 07, 2024 18:07 CINDA CORONADO MD Dec 07, 2024 21:23
[2024-12-07 18:37] LABS: Iron 34.0 ug/dL (65-175)
--- NOTE | 2024-12-07 19:23 | DVH ---
BILATERAL LOWER EXTREMITY ARTERIAL DUPLEX ULTRASOUND STUDY: REASON FOR EXAM: Right great toe amputation 2 months ago. Severe peripheral arterial disease. TECHNIQUE: The full lengths of the arterial segments were evaluated with color-flow Doppler ultrasoun d. Suspected abnormalities were evaluated with lopez scale ultrasound. Booth Operator spectral Doppler waveforms, with velocity measurements were obtained. Spectral waveforms with velocity measurements w ere obtained 2 to 4 cm central to any areas of significant stenosis. Common femoral, superficial femo ral, popliteal, posterior tibial, anterior tibial, and dorsal pedal arteries were evaluated. FINDINGS: Right: There is diffuse atherosclerotic plaque throughout the right lower extremity. The common femor al artery waveform is multiphasic with a brisk upstroke. The superficial femoral and popliteal arteri es are patent with multiphasic waveforms. No flow is identified in the posterior tibial artery. No fl ow is identified in the dorsal pedal artery. There is multi phasic flow in the distal anterior tibia l artery. Left: There is diffuse atherosclerotic plaque throughout the left lower extremity. The common femora l artery waveform is multiphasic with a brisk upstroke. The superficial femoral artery is patent with monophasic, turbulent waveforms. The popliteal artery is patent with monophasic waveforms. The anter ior tibial artery and posterior tibial artery are patent with monophasic waveforms. No flow is identi fied in the dorsal pedal artery. The posterior tibial, anterior tibial, and dorsalis pedis arteries a re patent with multiphasic waveforms. IMPRESSION: No flow is identified in the right posterior tibial artery or in the dorsal pedal artery. There is mu lti phasic flow in the right anterior tibial artery. Monophasic flow throughout the left lower extremity beginning in the proximal SFA. No flow is identif ied in the left dorsal pedal artery.
--- NOTE | 2024-12-07 19:29 | DVHINCON2 ---
Date of service: Dec 07, [address] good and dr bethany azar Reason for Consultation pulm dictated [id number] Allergies: Coded Allergies: NO KNOWN ALLERGIES (Unverified , 12/07/24) Home Meds Active Scripts Amlodipine Besylate (NORVASC TABLET) 5 Mg Tb, 10 MG PO DAILY for 30 Days, #60 TAB 3 Refills Prov:GILBERT AZAR MD 12/08/24 Enalapril Maleate (Enalapril Maleate) 10 Mg Tab, 20 MG PO DAILY for 30 Days, #60 TAB 2 Refills Prov:GILBERT AZAR MD 12/08/24 Furosemide (Lasix) 20 Mg Tb, 1 TAB PO BID, #90 TAB 1 Refill Prov:GILBERT AZAR MD 12/08/24 Amoxicillin & Pot Clavulanate (AUGMENTIN TABLET) 875 Mg Tb, 875 MG PO BID for 14 Days, #28 TAB Prov:GILBERT AZAR MD 12/08/24 Current Medications Current Medications Medications (Trade) Dose Ordered Sig/Jessica Route PRN Reason Start Time Stop Time Status Last Admin Albuterol (Ventolin Medneb) 5 mg ONCE STAT NEB 12/07/24 04:44 12/07/24 04:47 DC 12/07/24 04:54 Ipratropium [place] (Atrovent Medneb) 0.5 mg ONCE STAT NEB 12/07/24 04:44 12/07/24 04:47 DC 12/07/24 04:54 Nitroglycerin (Ntrostat Sublingual) 0.4 mg Q5MINP PRN SL FOR CHEST PAIN 12/07/24 06:30 Morphine Sulfate 2 mg Q30M PRN IV FOR CHEST PAIN 12/07/24 06:30 Piperacillin Sod/ Tazobactam Sod 100 ml @ 100 mls/hr Q8HR IV 12/07/24 14:00 12/07/24 08:30 DC Diagnostic Test (Pha) (Accu-Chek Comfort Curve T) 1 strip ACHS 12/07/24 07:00 12/07/24 16:54 Insulin Human Regular (InsuLIN R) HS SC 12/07/24 22:00 Insulin Human Regular (InsuLIN R) AC SC 12/07/24 07:00 12/07/24 16:58 Dextrose 50 ml UD PRN IV Blood Sugar LESS THAN 60 12/07/24 07:00 Piperacillin Sod/ Tazobactam Sod 100 ml @ 25 mls/hr Q8HR IV 12/07/24 08:30 12/07/24 14:37 Furosemide (Lasix Injection) 40 mg DAILY IV 12/08/24 10:00 Vancomycin HCl 0 ml @ 0 mls/hr UD IV 12/07/24 13:00 Enalapril Maleate (Vasotec Tablet) 20 mg DAILY PO 12/08/24 10:00 Amlodipine Besylate (Norvasc Tablet) 10 mg DAILY PO 12/08/24 10:00 Vital Signs Vital Signs Date Time Temp Pulse Resp B/P (MAP) Pulse Ox O2 Delivery O2 Flow Rate FiO2 12/07/24 17:00 98.5 106 16 155/76 (102) 100 98.5 12/07/24 11:00 Simple Mask* 6 50 Labs/Diagnostic Data Labs Test 12/07/24 16:53 12/07/24 12:51 12/07/24 08:58 12/07/24 08:15 Range/Units POC Glucose 145 H 70-106 mg/dl Urine Color Colorless Yellow Urine Clarity Clear Clear Urine pH 6.0 5.0-9.0 Urine Specific [place] 1.008 1.001-1.035 Urine Protein 1+ H Negative Urine Ketones Negative Negative Urine Blood Negative Negative /uL Urine Nitrite Negative Negative Urine Bilirubin Negative Negative Urine Urobilinogen Normal Negative mg/dL Urine Leukocyte Esterase Negative Negative /uL Urine RBC <1 0 - 3 /hpf Urine Microscopic WBC < 1 0-3 /HPF Urine Squamous Epithelial Cells None seen <5 /hpf Urine Bacteria None seen None Seen /hpf Urine Creatinine 30.41 30.0-125.0 mg/dL Urine Protein/Creatinine Ratio 1.86 Urine Sodium 94 40-220 mmol/L Urine Glucose Normal Normal mg/dL Urine Total Protein 56.42 H 1-14 mg/dL White Blood Count 12.1 #H 4.4-10.8 10^3/uL Red Blood Count 2.73 L 4.5-5.90 10^6/uL Hemoglobin 7.3 L 13.5-17.5 g/dL Hematocrit 22.1 L 41.0-53.0 % Mean Corpuscular Volume 81.3 80.0-100.0 fL Mean Corpuscular Hemoglobin 26.8 L 28.0-32.0 pg Mean Corpuscular Hemoglobin Concent 32.9 32.0-36.0 g/dL Red Cell Distribution Width 13.8 11.8-14.3 % Platelet Count 571 H 140-450 10^3/uL Mean Platelet Volume 7.7 6.9-10.8 fL Neutrophils (%) (Auto) 91.5 H 37.0-80.0 % Lymphocytes (%) (Auto) 3.3 L 10.0-50.0 % Monocytes (%) (Auto) 4.4 0.0-12.0 % Eosinophils (%) (Auto) 0.0 0.0-7.0 % Basophils (%) (Auto) 0.8 0.0-2.0 % Neutrophils # (Auto) 11.1 H 1.6-8.6 10 ^3/uL Lymphocytes # (Auto) 0.4 0.4-5.4 10 ^3/uL Monocytes # (Auto) 0.5 0-1.3 10 ^3/uL Eosinophils # (Auto) 0 0-0.8 10 ^3/uL Basophils # (Auto) 0.1 0-0.2 10 ^3/uL Nucleated Red Blood Cells 0.0 % Prothrombin Time 11.8 9.3-11.8 sec Prothrombin Time INR 1.13 0.9-1.15 Sodium Level 135 L 136-145 mmol/L Potassium Level 4.7 3.5-5.1 mmol/L Chloride Level 103 98-107 mmol/L Carbon Dioxide Level 22 20-31 mmol/L Anion Gap 10 5-15 Blood Urea Nitrogen 27 H 9-23 mg/dL Creatinine 1.66 H 0.700-1.30 mg/dL Glomerular Filtration Rate Calc 45 >90 mL/min BUN/Creatinine Ratio 16.3 10.0-20.0 Serum Glucose 190 H 74-106 mg/dL Hemoglobin A1c 9.8 H <5.7 % A1C Calcium Level 8.1 L 8.7-10.4 mg/dL Phosphorus Level 2.9 2.4-5.1 mg/dL B-Type Natriuretic Peptide 1619.77 0-100 pg/mL Parathyroid Hormone (Intact) 103.5 H 18.4-80.1 pg/mL Blood Gas Specimen Type Arterial Blood Gas Sample Site Right radial Blood Gas Patient Temperature 37.0 Arterial Blood Date Drawn [id number] Arterial Blood pH 7.461 H 7.350-7.450 Arterial Blood Partial Pressure CO2 28.4 L 35.0-48.0 mmHg Arterial Blood Partial Pressure O2 100.9 83.0-108.0 mmHg Arterial Blood HCO3 19.8 L 21.0-28.0 mmol/L Arterial Blood Oxygen Saturation 97.4 94.0-98.0 % Arterial Blood Base Excess -3.5 L -2.0-3.0 mmol/L Arterial Blood Oxyhemoglobin 96.6 94.0-98.0 % Arterial Blood Carboxyhemoglobin 0.2 L 0.5-1.5 % Arterial Blood Methemoglobin 0.6 0.0-1.5 % Samy Test Yes Blood Gas Total Hemoglobin 7.70 L 13.5-17.5 g/dL Blood Gas Liter Flow 6.00 Blood Gas Modality Mask - simple FiO2 % 40.0 Test 12/07/24 07:17 12/07/24 01:00 Range/Units Iron Level 34 L 65-175 ug/dL Total Iron Binding Capacity 251 250-425 ug/dL Percent Iron Saturation 13.5 L 20-55 % Ferritin 49.9 22-322 ng/mL Vitamin D 25-Hydroxy 26.3 L 30.0-100 ng/mL Activated Partial Thromboplast Time 28.5 24.5-34.5 SEC Lactic Acid Level 1.2 0.4-2.0 mmol/L Total Bilirubin 0.3 0.2-1.0 mg/dL Aspartate Amino Transferase (AST) 12 L 13-40 U/L Alanine Aminotransferase (ALT) 13 7-40 U/L Alkaline Phosphatase 177 H 46-116 U/L Total Protein 7.2 5.7-8.2 g/dL Albumin 3.9 3.2-4.8 g/dL Plan discussed with: Patient JULY FREY MD Dec 07, 2024 19:29
[2024-12-07 22:25] VITALS: BP 148/84; PULSE 108; RESP 18; TEMP 97.6; O2SAT 98
[2024-12-08] VITALS (12 sets, daily range): BP systolic 121–153; BP diastolic 57–86; PULSE 102–111; RESP 16–19; TEMP 97.2–98.8; O2SAT 60–100
[2024-12-08] MEDS ORDERED: MORPHINE SULFATE INJ 2 MG/ml SYRG IV PRN (00:30)
[2024-12-08] MEDS ORDERED: ACETAMINOPHEN 500 MG TAB or CAP PO PRN (00:45)
--- NOTE | 2024-12-08 03:59 | DVHINCON2 ---
DATE OF CONSULTATION: 12/07/[address] Tang and Dr. Blake for letting me participate in the care of this patient. HISTORY OF PRESENT ILLNESS: The patient is a 69-year-old gentleman who has respiratory failure, hypoxemia, and was requiring 10 liters of oxygen and has bilateral pneumonia on the CT scan, has diabetes mellitus, right big toe amputation, renal failure, right foot swelling, and second toe infection for the last several days. He is down to 3 liters now. PHYSICAL EXAMINATION: Afebrile. The trachea is central. Blood pressure is 151/78. Diminished breath sounds bilaterally. Rales in both lung segovia, rhonchi in both lung segovia. Right foot ecchymosis. Right foot infection, swelling, and amputation of second toe. LABORATORY FINDINGS: Glucose 131, phosphorus 2.9, BNP 1619. Blood gases; ____ on 6 liters nasal cannula. White count repeated 12.1, hemoglobin is 7.3. PTH was 103.5. Chronic renal failure with secondary parathyroidism. The patient is getting Zosyn and med neb treatments. Close monitoring of the renal function. Diabetes mellitus. IMPRESSION: * Bilateral pneumonia. * Respiratory failure. * Hypoxemia. * Chronic renal failure. * Secondary hyperparathyroidism. * Diabetes mellitus. * ____ infection. * Right big toe amputation. ____ renal consultation. Continue the current regimen. I agree with the plan and management. Keep the O2 saturation above 92%. Guillermo Riley MD MA/GAUTAM/MARIA GUADALUPE/NICOLE TID: [id number] RECEIPT: [id number]
[2024-12-08 06:08] LABS: Nucleated Red Blood Cells % 0.0 %
[2024-12-08 06:10] LABS: Hematocrit 20.6 % (41.0-53.0); Mean Corpuscular Hemoglobin 27.3 pg (28.0-32.0); Mean Corpuscular Volume 80.5 fL (80.0-100.0)
[2024-12-08 06:16] LABS: Hemoglobin 7.0 g/dL (13.5-17.5)
[2024-12-08 06:21] LABS: Alanine Aminotransferase 12 U/L (7-40); Albumin 3.4 g/dL (3.2-4.8); Anion Gap 11 (5-15); BUN/Creatinine Ratio 15.4 (10.0-20.0); Carbon Dioxide 23 mmol/L (20-31); Chloride 103 mmol/L (98-107); Potassium 4.6 mmol/L (3.5-5.1); Sodium 137 mmol/L (136-145); Total Protein 6.2 g/dL (5.7-8.2)
[2024-12-08 06:22] LABS: Bilirubin, Total 0.5 mg/dL (0.2-1.0)
[2024-12-08 06:30] LABS: Alkaline Phosphatase 139 U/L (46-116); Blood Urea Nitrogen 24 mg/dL (9-23); Calcium 8.4 mg/dL (8.7-10.4); Glucose 142 mg/dL (74-106)
[2024-12-08] MEDS ORDERED: AUG875T PO (08:06)
[2024-12-08] MEDS ORDERED: FURO1TAB33 PO (08:06)
--- NOTE | 2024-12-08 08:57 | DVHSR ---
APPROVED REPORT EXAM: Two-dimensional and M-mode echocardiogram with Doppler and color Doppler. Blood Pressure: 151/78 mmHg INDICATION Chest Pain RISK FACTORS Height: 5'5, Weight: 150 DIMENSIONS LVDd4.6 (3.8-5.7cm)LA (2D)4.6 (1.9-4.0cm)Aortic Root (2.0-3.7cm) LVDs3.4 (2.5-4.0cm)LA (MM) (1.9-4.0cm)Aortic Cusp Exc (1.5-2.0cm) EF (%) 50.0 (55-70%)Rt. Atrium3.7 (1.9-4.0cm)Asc. Aorta cm IVSd0.7 (0.7-1.1cm)RV (D) (1.8-2.4cm) PWd1.2 (0.7-1.1cm) Mitral Valve MitralMitral Stenosis E wave0.90m/sMV Mean GR.mmHg A wave0.91m/sMV Peak GR.107mmHg E/A ratio1.02D MVAcm2 DECEL [id number] 1/2 Timems Aortic Valve Aortic ValveAortic Stenosis V10.83m/Marleen Mean GR.4mmHg V21.30m/Marleen Peak GR.7mmHg LVOT Diameter1.8 (1.8-2.4cm)Doppler AVA1.62cm2 Tricuspid Valve TR Velocity3.12m/s [id number] Other Information Technically limited study due to body habitus. Conclusion Technically good study. Sinus rhythm. Off axis views. Concentric LVH with left atrial enlargement. Mild mitral annular calcification. Left ventricular function is borderline at 45 to 50% with global hypokinesis. Right ventricular func tion is normal. Moderate tricuspid insufficiency with mild mitral insufficiency. No pericardial effusion masses or vegetations noted.
--- NOTE | 2024-12-08 09:08 | DVHPN2 ---
Progress Note Date Seen: Dec 08, 2024 Has the PT tested + for MRSA If YES, has PT been informed?: Yes Medical Necessity Reason Pt with a Central, PICC or Fol: No Subjective Patient reports: Feels better Review of Systems: RESPIRATORY:Abnormal Objective vital signs Vital Sign Date Time Temp Pulse Resp B/P (MAP) Pulse Ox O2 Delivery O2 Flow Rate FiO2 12/08/24 05:00 98.8 105 17 144/78 (100) 60 98.8 12/07/24 22:25 Room Air* 0 21 Total Intake and Output 12/07/24 12/07/24 12/08/24 15:00 23:00 07:00 Intake Total 125 ml 100 ml Output Total 1050 ml Balance 125 ml -950 ml medications Current Medications Medications Dose Ordered Sig/Jessica Route Start Time Stop Time Status Last Admin Dose Admin Nitroglycerin 0.4 mg Q5MINP PRN SL 12/07/24 06:30 Morphine Sulfate 2 mg Q30M PRN IV 12/07/24 06:30 Diagnostic Test (Pha) 1 strip ACHS 12/07/24 07:00 12/08/24 06:28 1 STRIP Insulin Human Regular HS SC 12/07/24 22:00 12/07/24 23:33 2 UNITS Insulin Human Regular AC SC 12/07/24 07:00 12/08/24 06:30 2 UNITS Dextrose 50 ml UD PRN IV 12/07/24 07:00 Piperacillin Sod/ Tazobactam Sod 100 ml @ 25 mls/hr Q8HR IV 12/07/24 08:30 12/08/24 05:14 25 MLS/HR Furosemide 40 mg DAILY IV 12/08/24 10:00 Vancomycin HCl 0 ml @ 0 mls/hr UD IV 12/07/24 13:00 Enalapril Maleate 20 mg DAILY PO 12/08/24 10:00 Amlodipine Besylate 10 mg DAILY PO 12/08/24 10:00 Acetaminophen 500 mg Q4HP PRN PO 12/08/24 00:45 Morphine Sulfate 1 mg Q4HP PRN IV 12/08/24 00:30 laboratory and microbiology Laboratory Tests 12/08/24 04:40 Test 12/08/24 04:40 Range/Units Serum Glucose 142 H 74-106 mg/dL Microbiology Date/Time Source Procedure Growth Status 10/14/25 01:03 Blood Blood Culture - Preliminary NO GROWTH AFTER 24 HOURS OF INCUBATION. Resulted Labs and/or images reviewed: Labs reviewed by me, Image(s) reviewed by me Problem List/Assessment/Plan Problem List/Assessment/Plan c o p d 2 resp failure with hypoxia 3 bilateral pneumonia 4 p v d continie med neb and antibiotics Plan discussed with: Patient Dietary Evaluation Review Recommendations by RD: Dietary education by RD Date of Service: Dec 08, 2024 Billing Provider: JULY FREY MD Common Visit Codes: 27906-QAF/OBS DISCH DAY >30min JULY FREY MD Dec 08, 2024 09:08
[2024-12-08] MEDS ORDERED: AML5T PO (09:19)
[2024-12-08] MEDS ORDERED: ENAL1TAB47 PO (09:19)
--- NOTE | 2024-12-08 09:32 | DVHDS2 ---
New Physician D'charge PN Admitting Diagnosis Admitting Diagnosis abnormal labs Discharge Diagnosis R foot gangrene/cellulitis CHF DM Operations or Procedures none Reason(s) For Hospitalization Surgery Hospital Course 69 M who comes to ER after being sent in by his vascular doctor for abnormal labs. When he arrived he was noted to have a K 5.3 and Cr was 1.66. He had a recent R great toe amputation done by his vascular surgeon and had some cellulitis to the foot and notable gangrene on the R foot 2nd digit. He was started on broad spectrum IV ABx and podiatry was consulted and recommended amputation of the R 2nd toe however the patient did not want that at this time and said he would think about it. He was evaluated by vascular surgery and b/l lower extremity arterial duplex was done and showed no flow to R posterior tibial and dorsal pedis artery. These findings were discussed with vascular surgery who recommended no intervention at this time and suggested outpt follow up with his primary vascular surgeon that he normally sees. His hospital course was complicated by respiratory failure initially he was placed on 6L mask and ti trated down to 2-3L NC. He has a CT chest done which showed CHF and pulmonary edema and his PBNP was 1600. He was diuresed with lasix and echo showed concentric LVH with EF 45-50% and global hypokinesis. please refer to echo report for more details. In regards to K of 5.3 on admission he was seen by nephrology and now the K has corrected and his Cr is 1.5 as of this AM. He was started on amlodipine and lisinopril for BP control by nephrology. HIs hgb this Am was noted to be 7.0 and thus he will be transfused 1 unit PRBC now. Home o2 has been delivered to the bedside for the patient to have at home as he is requiring 2-3L NC currently. He will be given 1 unit of blood and after that will be discharged home with home o2, PO augmentin BID x 10 days for cellulitis of RLE as well as lasix 20 mg PO BID. Destiny to arrange for outpt follow up with his PCP and primary vascular surgeon as recommended. He will be discharged home with . Treatment Plan Discharge Condition of Discharge Good Disposition Home with Health Services Discharge Instructions Diet: Consistent carbohydrate, Cardiac 2g Na,low cholest Activity: No Restrictions, As Tolerated Medications: see med sheet Follow Up Care Follow Up/Referral: PCP VASCULAR SURGERY Discharge Statement: "Patient was advised to return to the ER or call 911 if any headaches, dizziness, shortness of breath, chest pain, abdominal pain, bleeding, fevers, or worsening of medical condition. Patient was counseled about treatment plan, medications, possible side effects, patientverbalized understanding. All questions were answered to the best of my ability. This discharge took greater then 30 minutes in planning, reviewing documentation, counseling the patient, and discussing with other team members." GILBERT DAILY MD Dec 08, 2024 09:32
[2024-12-08] MEDS ORDERED: VANCOMYCIN 750MG KIT 100 ML IV ONE (10:30)
[2024-12-08] MEDS: ENALAPRIL MALEATE 10 MG TAB PO SCH (11:41)
--- NOTE | 2024-12-08 13:15 | DVHPN2 ---
Progress Note Date Seen: Dec 08, 2024 Resident Creating Document: ODILON DAVEY RESIDENT Has the PT tested + for MRSA If YES, has PT been informed?: Yes Medical Necessity Reason Pt with a Central, PICC or Fol: No Subjective Review of Systems Patient was seen and examined on the bedside. He is alert oriented x3. complaint of pain in the right foot and no other active complaint. Objective vital signs Vital Sign Date Time Temp Pulse Resp B/P (MAP) Pulse Ox O2 Delivery O2 Flow Rate FiO2 12/08/24 11:41 147/74 12/08/24 09:36 97.4 106 18 95 97.4 12/07/24 22:25 Room Air* 0 21 Total Intake and Output 12/07/24 12/07/24 12/08/24 15:00 23:00 07:00 Intake Total 125 ml 100 ml Output Total 1050 ml Balance 125 ml -950 ml medications Current Medications Medications Dose Ordered Sig/Jessica Route Start Time Stop Time Status Last Admin Dose Admin Nitroglycerin 0.4 mg Q5MINP PRN SL 12/07/24 06:30 Morphine Sulfate 2 mg Q30M PRN IV 12/07/24 06:30 Diagnostic Test (Pha) 1 strip ACHS 12/07/24 07:00 12/08/24 11:55 1 STRIP Insulin Human Regular HS SC 12/07/24 22:00 12/07/24 23:33 2 UNITS Insulin Human Regular AC SC 12/07/24 07:00 12/08/24 06:30 2 UNITS Dextrose 50 ml UD PRN IV 12/07/24 07:00 Piperacillin Sod/ Tazobactam Sod 100 ml @ 25 mls/hr Q8HR IV 12/07/24 08:30 12/08/24 05:14 25 MLS/HR Furosemide 40 mg DAILY IV 12/08/24 10:00 Vancomycin HCl 0 ml @ 0 mls/hr UD IV 12/07/24 13:00 Enalapril Maleate 20 mg DAILY PO 12/08/24 10:00 12/08/24 11:41 20 MG Amlodipine Besylate 10 mg DAILY PO 12/08/24 10:00 12/08/24 11:41 10 MG Acetaminophen 500 mg Q4HP PRN PO 12/08/24 00:45 Morphine Sulfate 1 mg Q4HP PRN IV 12/08/24 00:30 Hydralazine HCl 10 mg Q6HP PRN IV 12/08/24 13:00 Examination Physical examination: General Appearance: Alert, Oriented X3, Cooperative, No acute distress HEENT: Atraumatic, PERRLA, EOMI, Mucous membrane moist/pink Respiratory: Clear to auscultation, Normal air movement Cardiovascular: Regular rate, Normal S1, Normal S2, No murmurs, no chest wall tenderness Abdominal: Normal bowel sounds, Soft, No tenderness, No hepatospenomegaly, No masses Extremities: status post amputation of right big toe, gangrene of the right 2nd toe, No clubbing, No cyanosis, No edema, Normal pulses, No tenderness/swelling Skin: No rashes, No breakdown, No significant lesion Neuro: Normal speech, Strength at 5/5 X4 ext, Normal tone, Sensation intact, Cranial nerves 3-12 NL, Reflexes 2+ Psych/Mental Status: Mental status NL, Mood NL laboratory and microbiology Laboratory Tests 12/08/24 04:40 Test 12/08/24 04:40 Range/Units Serum Glucose 142 H 74-106 mg/dL Microbiology Date/Time Source Procedure Growth Status 12/07/24 01:03 Blood Blood Culture - Preliminary NO GROWTH AFTER 24 HOURS OF INCUBATION. Resulted Labs and/or images reviewed: Labs reviewed by me, Image(s) reviewed by me Problem List/Assessment/Plan Problem List/Assessment/Plan Assessment and plan: # AGATA likely prerenal, hemodynamically mediated # possible AGATA superimposed on CKD # Hyperkalemia resolved # Secondary hyperparathyroidism # Hypertensive emergency # Anemia of chronic disease # uncontrolled type 2 diabetes mellitus, hemoglobin A1c 9.8 # peripheral arterial disease, status post amputation of right big toe # possible cellulitis of the right foot Plan: - ultrasound demonstrated distended bladder with volume 441 mL with dilated distal ureters - Bladder scan ordered, not done. - FENa is 3.5% - continue enalapril 20 mg daily, amlodipine 10 mg daily to optimize control of blood pressure - insulin sliding scale - Iron panel demonstrated low iron and saturation with normal TIBC - 1 unit of PRBC, hb 7 - Ferrous sulphate 325 mg bid. - Recommended ID consultation for judicial use of IV antibiotic considering AGATA - strict I&O - monitor BMP - Recommended outpatient nephrology follow up to monitor the progression of CKD Plan discussed with Dr. Farr Addendum Patient seen and examined, plan discussed with resident. Agree with above, we will follow closely Plan discussed with: Patient, Other My Orders My Orders Orders - ODILON DAVEY Procedure Category Date Status Time Kidney US 12/07/24 Resulted 14:40 Communication Order ORDERS 12/07/24 Transmitted 14:43 Communication Order ORDERS 12/07/24 Transmitted 17:12 Bladder Scan ORDERS 12/07/24 Transmitted 17:12 Enalapril Tablet PHA 12/08/24 In Process (Vasotec Tablet) 10:00 Amlodipine Tablet PHA 12/08/24 In Process (Norvasc Tablet) 10:00 Strict I & O RUSLAN 12/07/24 In Process 18:07 Dietary Evaluation Review Recommendations by RD: Dietary education by ODILON SUTHERLAND RESIDENT Dec 08, 2024 13:15 CINDA FARR MD Dec 08, 2024 18:32
[2024-12-08] MEDS: hydrALAZINE HCL 20 MG/ML VL IV PRN (13:25)
[2024-12-08] MEDS: FERROUS SULFATE 325mg EC TAB PO ONE (18:47)
[2024-12-08 18:50] LABS: Hematocrit 26.1 % (41.0-53.0); Hemoglobin 8.6 g/dL (13.5-17.5)
[2024-12-08] MEDS: FUROSEMIDE 40 MG/4 ML VIAL IV SCH (18:50)
--- NOTE | 2024-12-08 21:42 | DVHINCON2 ---
Date of service: Dec 08, 2024 Referring Physician Hayden Reason for Consultation CHF History of Present Illness This is a 69 year old male with a past medical history of DM who presents to the ED with a complaint of abnormal outpatient labs. Per EMS personnel report, patient received a call from his vascular physician after having outpatient lab work performed, earlier, and was advised to come to the ED. He reports on being told on having abnormally elevated blood glucose and potassium levels. Patient is otherwise asymptomatic. Patient recently underwent 1st great toe amputation of right foot. 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 Chest x-ray showed findings suggestive of pulmonary vascular congestion/interstitial edema. Patient was admitted to the hospital. I am asked to consult on this patient. Family History: Patient reports no known family medical history. Allergies: Coded Allergies: NO KNOWN ALLERGIES (Unverified , 12/07/24) Home Meds Active Scripts Amlodipine Besylate (NORVASC TABLET) 5 Mg Tb, 10 MG PO DAILY for 30 Days, #60 TAB 3 Refills Prov:GILBERT DAILY MD 12/08/24 Enalapril Maleate (Enalapril Maleate) 10 Mg Tab, 20 MG PO DAILY for 30 Days, #60 TAB 2 Refills Prov:GILBERT DAILY MD 12/08/24 Furosemide (Lasix) 20 Mg Tb, 1 TAB PO BID, #90 TAB 1 Refill Prov:GILBERT DAILY MD 12/08/24 Amoxicillin & Pot Clavulanate (AUGMENTIN TABLET) 875 Mg Tb, 875 MG PO BID for 14 Days, #28 TAB Prov:GILBERT DAILY MD 12/08/24 Current Medications Current Medications Medications (Trade) Dose Ordered Sig/Jessica Route PRN Reason Start Time Stop Time Status Last Admin Insulin Human Regular (InsuLIN R) HS SC 12/07/24 22:00 12/07/24 23:33 Furosemide (Lasix Injection) 40 mg DAILY IV 12/08/24 10:00 12/08/24 18:50 Enalapril Maleate (Vasotec Tablet) 20 mg DAILY PO 12/08/24 10:00 12/08/24 11:41 Amlodipine Besylate (Norvasc Tablet) 10 mg DAILY PO 12/08/24 10:00 12/08/24 11:41 Acetaminophen (Tylenol Tablet Or Capsule) 500 mg Q4HP PRN PO PAIN SCALE 1-3 OR TEMP>100.4 12/08/24 00:45 Morphine Sulfate 1 mg Q4HP PRN IV SEVERE PAIN (7-10 PAIN SCALE) 12/08/24 00:30 Hydralazine HCl (Apresoline Injection) 10 mg Q6HP PRN IV SBP>150 12/08/24 13:00 12/08/24 13:25 Ferrous Sulfate 325 mg BIDWM PO 12/09/24 08:00 Review of Systems All Other Systems: Reviewed and Negative (Comprehensive review of systems are negative unless stated in HPI) Vital Signs Vital Signs Date Time Temp Pulse Resp B/P (MAP) Pulse Ox O2 Delivery O2 Flow Rate FiO2 12/08/24 20:00 17 100 Room Air* 3 N/A Nasal Cannula* 12/08/24 18:50 145/77 12/08/24 18:16 98.2 111 98.2 Physical Exam GENERAL: Alert and oriented x 3. No acute distress. EYES: PERRL, EOMI. Anicteric. HENT: Moist mucous membranes. LUNGS: Clear to auscultation bilaterally. CARDIOVASCULAR: Regular rate and rhythm. ABDOMEN: Soft, nontender and nondistended. EXTREMITIES: No edema.5th digit amputation to left foot; recent 1st digit amputation to right foot; dry gangrene to the 2nd right foot. NEUROLOGIC: No focal neurological deficits. SKIN: Warm, dry. dry gangrene to the 2nd right foot Labs/Diagnostic Data Labs Test 12/08/24 18:46 12/08/24 18:41 12/08/24 04:40 12/07/24 12:51 Range/Units POC Glucose 159 H 70-106 mg/dl Hemoglobin 8.6 #L 13.5-17.5 g/dL Hematocrit 26.1 #L 41.0-53.0 % White Blood Count 10.4 4.4-10.8 10^3/uL Red Blood Count 2.56 L 4.5-5.90 10^6/uL Mean Corpuscular Volume 80.5 80.0-100.0 fL Mean Corpuscular Hemoglobin 27.3 L 28.0-32.0 pg Mean Corpuscular Hemoglobin Concent 33.9 32.0-36.0 g/dL Red Cell Distribution Width 13.8 11.8-14.3 % Platelet Count 595 H 140-450 10^3/uL Mean Platelet Volume 8.1 6.9-10.8 fL Neutrophils (%) (Auto) 90.7 H 37.0-80.0 % Lymphocytes (%) (Auto) 3.9 L 10.0-50.0 % Monocytes (%) (Auto) 4.5 0.0-12.0 % Eosinophils (%) (Auto) 0.2 0.0-7.0 % Basophils (%) (Auto) 0.7 0.0-2.0 % Neutrophils # (Auto) 9.4 H 1.6-8.6 10 ^3/uL Lymphocytes # (Auto) 0.4 0.4-5.4 10 ^3/uL Monocytes # (Auto) 0.5 0-1.3 10 ^3/uL Eosinophils # (Auto) 0 0-0.8 10 ^3/uL Basophils # (Auto) 0.1 0-0.2 10 ^3/uL Nucleated Red Blood Cells 0.0 % Sodium Level 137 136-145 mmol/L Potassium Level 4.6 3.5-5.1 mmol/L Chloride Level 103 98-107 mmol/L Carbon Dioxide Level 23 20-31 mmol/L Anion Gap 11 5-15 Blood Urea Nitrogen 24 H 9-23 mg/dL Creatinine 1.56 H 0.700-1.30 mg/dL Glomerular Filtration Rate Calc 48 >90 mL/min BUN/Creatinine Ratio 15.4 10.0-20.0 Serum Glucose 142 H 74-106 mg/dL Calcium Level 8.4 L 8.7-10.4 mg/dL Total Bilirubin 0.5 0.2-1.0 mg/dL Aspartate Amino Transferase (AST) 15 13-40 U/L Alanine Aminotransferase (ALT) 12 7-40 U/L Alkaline Phosphatase 139 H 46-116 U/L Total Protein 6.2 5.7-8.2 g/dL Albumin 3.4 3.2-4.8 g/dL Random Vancomycin Level 6.6 5-10 ug/mL Urine Color Colorless Yellow Urine Clarity Clear Clear Urine pH 6.0 5.0-9.0 Urine Specific [place] 1.008 1.001-1.035 Urine Protein 1+ H Negative Urine Ketones Negative Negative Urine Blood Negative Negative /uL Urine Nitrite Negative Negative Urine Bilirubin Negative Negative Urine Urobilinogen Normal Negative mg/dL Urine Leukocyte Esterase Negative Negative /uL Urine RBC <1 0 - 3 /hpf Urine Microscopic WBC < 1 0-3 /HPF Urine Squamous Epithelial Cells None seen <5 /hpf Urine Bacteria None seen None Seen /hpf Urine Creatinine 30.41 30.0-125.0 mg/dL Urine Protein/Creatinine Ratio 1.86 Urine Sodium 94 40-220 mmol/L Urine Glucose Normal Normal mg/dL Urine Total Protein 56.42 H 1-14 mg/dL Test 12/07/24 08:58 12/07/24 08:15 12/07/24 07:17 12/07/24 01:00 Range/Units Prothrombin Time 11.8 9.3-11.8 sec Prothrombin Time INR 1.13 0.9-1.15 Hemoglobin A1c 9.8 H <5.7 % A1C Phosphorus Level 2.9 2.4-5.1 mg/dL B-Type Natriuretic Peptide 1619.77 0-100 pg/mL Parathyroid Hormone (Intact) 103.5 H 18.4-80.1 pg/mL Blood Gas Specimen Type Arterial Blood Gas Sample Site Right radial Blood Gas Patient Temperature 37.0 Arterial Blood Date Drawn [id number] Arterial Blood pH 7.461 H 7.350-7.450 Arterial Blood Partial Pressure CO2 28.4 L 35.0-48.0 mmHg Arterial Blood Partial Pressure O2 100.9 83.0-108.0 mmHg Arterial Blood HCO3 19.8 L 21.0-28.0 mmol/L Arterial Blood Oxygen Saturation 97.4 94.0-98.0 % Arterial Blood Base Excess -3.5 L -2.0-3.0 mmol/L Arterial Blood Oxyhemoglobin 96.6 94.0-98.0 % Arterial Blood Carboxyhemoglobin 0.2 L 0.5-1.5 % Arterial Blood Methemoglobin 0.6 0.0-1.5 % Samy Test Yes Blood Gas Total Hemoglobin 7.70 L 13.5-17.5 g/dL Blood Gas Liter Flow 6.00 Blood Gas Modality Mask - simple FiO2 % 40.0 Iron Level 34 L 65-175 ug/dL Total Iron Binding Capacity 251 250-425 ug/dL Percent Iron Saturation 13.5 L 20-55 % Ferritin 49.9 22-322 ng/mL Vitamin D 25-Hydroxy 26.3 L 30.0-100 ng/mL Activated Partial Thromboplast Time 28.5 24.5-34.5 SEC Lactic Acid Level 1.2 0.4-2.0 mmol/L Microbiology Date/Time Source Procedure Growth Status 12/07/24 01:03 Blood Blood Culture - Preliminary NO GROWTH AFTER 24 HOURS OF INCUBATION. Resulted Assessment AAGTA likely prerenal. Possible AGATA superimposed on CKD. Hyperkalemia resolved. Secondary hyperparathyroidism. Hypertensive emergency. Anemia of chronic disease. Uncontrolled type 2 diabetes mellitus. Peripheral arterial disease, status post amputation of right big toe. Possible cellulitis of the right foot. Plan/Recommendation I agree with your ongoing assessment and care of plan. Echocardiogram. Amlodipine. Diuretics with Lasix. IV antibiotics as ordered. IV Hydralazine for SBP >150. Morphine and Tylenol for pain management. Additional plan as per the hospital course. A total of 45 minutes was spent reviewing the patient record, examining the patient, making a diagnostic and therapeutic plan, discussing this plan with medical personnel, following up on diagnostic studies and following the patient for clinical stability excluding any and all procedures. At least 50% of this time was spent in direct, [id number] contact. Plan discussed with: Patient JESSICA SHARMA MD Dec 08, 2024 21:42
[2024-12-09] MEDS ORDERED: FERROUS SULFATE 325mg EC TAB PO SCH (08:00)
== END 2024-12-08 21:30 | disposition home health service (06) | DRG 299 ==
LOC: EDBD 00:42 → ER 00:42 → OVERFLOW 06:30 → EAST 21:25
PROVIDERS: ADMIT Internal Medicine; ATTEND Internal Medicine
PROC: 30233N1 Transfusion of Nonautologous Red Blood Cells into Peripheral Vein, Percutaneous Approach (ICD-10-PCS; principal; 2024-12-08)
DX: E11.52 Type 2 diabetes mellitus with diabetic peripheral angiopathy with gangrene (principal); I50.43 Acute on chronic combined systolic (congestive) and diastolic (congestive) heart failure; J96.01 Acute respiratory failure with hypoxia; L03.115 Cellulitis of right lower limb; N17.9 Acute kidney failure, unspecified; I16.1 Hypertensive emergency; I13.0 Hypertensive heart and chronic kidney disease with heart failure and stage 1 through stage 4 chronic kidney disease, or unspecified chronic kidney disease; N25.81 Secondary hyperparathyroidism of renal origin; E87.5 Hyperkalemia; E11.65 Type 2 diabetes mellitus with hyperglycemia; N18.9 Chronic kidney disease, unspecified; D63.1 Anemia in chronic kidney disease; E11.22 Type 2 diabetes mellitus with diabetic chronic kidney disease; E78.5 Hyperlipidemia, unspecified; E66.9 Obesity, unspecified; Z68.24 Body mass index [BMI] 24.0-24.9, adult; Z79.84 Long term (current) use of oral hypoglycemic drugs; Z79.899 Other long term (current) drug therapy
CPT/HCPCS: 36415; 36600; 71045; 71250; 73630; 76775; 80048; 80053; 80202; 81001; 82306; 82570; 82728; 82805; 82962; 83036; 83540; 83550; 83605; 83880; 83970; 84100; 84156; 84300; 85014; 85018; 85025; 85610; 85730; 86850; 86900; 86901; 86920; 87040; 93005; 93306; 93925; 94640; 96374; 96375; G0378; J1815; J2543

== ENCOUNTER 2025-01-18 09:21 | Inpatient (IN) | payer MEDICARE, MEDICAID ==
[~2025-01-18] VITALS: Ht 172.7 cm; Wt 79.1 kg
[~2025-01-18 09:21] MED LIST: AML5T PO; AUG875T PO; ENAL1TAB47 PO; FURO1TAB33 PO
--- NOTE | 2025-01-18 09:54 | ED.PDOC ---
Musculoskeletal HPI Comments Patient is a 69-year-old male with past medical history of type 2 diabetes, hypertension, dyslipidemia, who was sent in by his PCP for right lower extremity necrotic wounds. According to the patient, he has had right lower extremity 2nd toe infection for the past couple of months and he also underwent right big toe amputation a few months ago, today at his PCP's appointment he was noted to have a necrotic foul-smelling lesion involving the 2nd 3rd and 4th metatarsals along with a wound on the dorsal aspect of the right foot which is what prompted the PCP to send the patient to the ER. Patient also notes on review of systems feeling weakness, lethargy and decreased appetite. Patient is AO x4 however somewhat of a poor historian. Chief Complaint: General Weakness Time Seen by MD: 09:35 Reviewed Notes: Nurses Notes Allergies: Coded Allergies: NO KNOWN ALLERGIES (Unverified , 12/07/24) Home Meds Active Scripts Amlodipine Besylate (NORVASC TABLET) 5 Mg Tb, 10 MG PO DAILY for 30 Days, #60 TAB 3 Refills Prov:GILBERT DAILY MD 12/08/24 Enalapril Maleate (Enalapril Maleate) 10 Mg Tab, 20 MG PO DAILY for 30 Days, #60 TAB 2 Refills Prov:GILBERT DAILY MD 12/08/24 Furosemide (Lasix) 20 Mg Tb, 1 TAB PO BID, #90 TAB 1 Refill Prov:GILBERT DAILY MD 12/08/24 Discontinued Scripts Amoxicillin & Pot Clavulanate (AUGMENTIN TABLET) 875 Mg Tb, 875 MG PO BID for 14 Days, #28 TAB Prov:GILBERT DAILY MD 12/08/24 Mode of Arrival: Ambulatory Past Medical History PAST MEDICAL HISTORY: DM Past Medical History (Contd): Type 2 diabetes, hypertension, dyslipidemia Surgical History (Cont'd) Right big toe amputation, right finger amputation Family History Family History: Unknown Social History Smoker: Non-Smoker Alcohol: Denies ETOH Use Drugs: Denies Drug Use Lives In: Home Constitutional: reports: weakness; denies: chills, diaphoresis, fatigue, fever, malaise, sweats, others EENTM: denies: blurred vision, double vision, ear bleeding, ear discharge, ear drainage, ear pain, ear ringing, eye pain, eye redness, hearing loss, mouth pain, mouth swelling, nasal discharge, nose bleeding, nose congestion, nose pain, photophobia, tearing, throat pain, throat swelling, voice changes, others Respiratory: denies: cough, hemoptysis, orthopnea, SOB at rest, shortness of breath, SOB with excertion, stridor, wheezing, others Cardiovascular: denies: chest pain, dizzy spells, diaphoresis, Dyspnea on exertion, edema, irregular heart beat, left arm pain, lightheadedness, palpitations, PND, syncope, others Gastrointestinal: reports: nausea; denies: abdomen distended, abdominal pain, blood streaked bowels, constipated, diarrhea, dysphagia, difficulty swallowing, hematemesis, melena, poor appetite, poor fluid intake, rectal bleeding, rectal pain, vomiting, others Genitourinary: denies: burning, dysuria, flank pain, frequency, hematuria, incontinence, penile discharge, penile sore, pain, testicle pain, testicle swelling, urgency, others Neurological: denies: dizziness, fainting, headache, left sided numbness, left sided weakness, numbness, paresthesia, pre-existing deficit, right sided numbness, right sided weakness, seizure, speech problems, tingling, tremors, weakness, others Musculoskeletal: denies: back pain, gout, joint pain, joint swelling, muscle pain, muscle stiffness, neck pain, others Integumetry: denies: bruises, change in color, change in hair/nails, dryness, laceration, lesions, lumps, rash, wounds, others Allergic/Immunocompromised: denies: Difficulty Healing, Frequent Infections, Hives, Itching, others Hematologic/Lymphatic: denies: anemia, blood clots, easy bleeding, easy bruising, swollen glands, others Endocrine: denies: excessive hunger, excessive sweating, excessive thirst, excessive urination, flushing, intolerance to cold, intolerance to heat, unexplained weight gain, unexplained weight loss, others Psychiatric: denies: anxiety, bipolar disorder, depression, hopeless, panic disorder, schizophrenia, sleepless, suicidal, others Physical Exam General Appearance: None, Normal HEENT: Normal ENT Inspection, PERRL/EOMI Neck: Non-Tender, Normal, Normal Inspection Respiratory: No Accessory Muscle Use, No Respiratory Distress, Normal Breath Sounds Cardiovascular: Regular Rate/Rhythm Breast Exam: Deferred Gastrointestinal: Non Tender, No Pulsatile Mass, Normal Bowel Sounds Genitalia: Deferred Pelvic: Deferred Rectal: Rectal Exam not done Extremities: Inflammation, Leg edema, Normal inspection, Normal range of motion, Pedal edema, Slow capillary refill Neurologic: No Motor Deficits, Normal Affect, Normal Mood, No Sensory Deficits Cerebellar Function: NOT DONE Reflexes: NOT DONE Skin: Dry, Wounds Peripheral Pulses: 0 dorsalis pedis (R), 0 dorsalis pedis (L) Lymphatic: NOT DONE Was a procedure done? Was a procedure done?: No Differential Diagnosis EXT Differential Diagnosis: Cellulitis Other Differential Diagnosis Gangrene Infected Diabetic foot ulcer Subacute-chronic limb ischemia Diabetic neuropathy X-Ray, Labs, Meds, VS Vital Signs Date Time Temp Pulse Resp B/P (MAP) Pulse Ox O2 Delivery O2 Flow Rate FiO2 01/18/25 11:14 86 16 98 Room Air* 0 21 01/18/25 11:13 97.8 86 16 178/97 (124) 98 97.8 01/18/25 09:24 96.9 88 14 161/88 100 96.9 Lab Test 01/18/25 09:41 Range/Units White Blood Count 11.0 H 4.4-10.8 10^3/uL Red Blood Count 2.84 L 4.5-5.90 10^6/uL Hemoglobin 7.3 L 13.5-17.5 g/dL Hematocrit 22.1 L 41.0-53.0 % Mean Corpuscular Volume 77.9 L 80.0-100.0 fL Mean Corpuscular Hemoglobin 25.7 L 28.0-32.0 pg Mean Corpuscular Hemoglobin Concent 33.0 32.0-36.0 g/dL Red Cell Distribution Width 15.3 H 11.8-14.3 % Platelet Count 739 H 140-450 10^3/uL Mean Platelet Volume 7.8 6.9-10.8 fL Neutrophils (%) (Auto) 88.6 H 37.0-80.0 % Lymphocytes (%) (Auto) 5.1 L 10.0-50.0 % Monocytes (%) (Auto) 5.3 0.0-12.0 % Eosinophils (%) (Auto) 0.3 0.0-7.0 % Basophils (%) (Auto) 0.7 0.0-2.0 % Neutrophils # (Auto) 9.7 H 1.6-8.6 10 ^3/uL Lymphocytes # (Auto) 0.6 0.4-5.4 10 ^3/uL Monocytes # (Auto) 0.6 0-1.3 10 ^3/uL Eosinophils # (Auto) 0 0-0.8 10 ^3/uL Basophils # (Auto) 0.1 0-0.2 10 ^3/uL Nucleated Red Blood Cells 0.0 % Reticulocyte Count (auto) 1.96 H 0.5-1.5 % Prothrombin Time 12.4 H 9.3-11.8 sec Prothrombin Time INR 1.19 H 0.9-1.15 Activated Partial Thromboplast Time 31.3 24.5-34.5 SEC Sodium Level 131 L 136-145 mmol/L Potassium Level 4.6 3.5-5.1 mmol/L Chloride Level 96 L 98-107 mmol/L Carbon Dioxide Level 24 20-31 mmol/L Anion Gap 11 5-15 Blood Urea Nitrogen 32 H 9-23 mg/dL Creatinine 1.50 H 0.700-1.30 mg/dL Glomerular Filtration Rate Calc 51 >90 mL/min BUN/Creatinine Ratio 21.3 H 10.0-20.0 Serum Glucose 224 H 74-106 mg/dL Hemoglobin A1c 9.5 H <5.7 % A1C Calcium Level 8.6 L 8.7-10.4 mg/dL Phosphorus Level 4.0 2.4-5.1 mg/dL Magnesium Level 2.1 1.6-2.6 mg/dL Ferritin 138.0 22-322 ng/mL Triglycerides Level 133 < 150 mg/dL Cholesterol Level 125 < 200 mg/dL LDL Cholesterol 68 < 100 mg/dL HDL Cholesterol 30 L 40-59 mg/dL Vitamin B12 Level 897 211-911 pg/mL Vitamin D 25-Hydroxy 26.7 L 30.0-100 ng/mL Folic Acid 10.75 >5.38 ng/mL Thyroid Stimulating Hormone (TSH) 5.85 H 0.55-4.78 uIU/mL Time of 1ST Reevaluation: 10:45 Reevaluation 1ST: Unchanged Patient Education/Counseling: Diagnosis, Treatment, Prognosis, Need For Follow Up Family Education/Counseling: Diagnosis, Treatment, Prognosis, Need For Follow Up Departure 1 Departure Time of Disposition: 11:00 Impression: Primary Impression: Osteomyelitis Qualified Codes: M86.9 - Osteomyelitis, unspecified Additional Impressions: Cellulitis Qualified Codes: L03.115 - Cellulitis of right lower limb Gangrene Acute kidney injury superimposed on CKD Disposition: ADMITTED INPATIENT Admit to: Med Surg Condition: Guarded Critical Care Note Critical Care Time?: No Stability Stability form required: TRIP Camacho RESIDENT Jan 18, 2025 09:54
[2025-01-18 09:55] LABS: Hemoglobin 7.3 g/dL (13.5-17.5); Nucleated Red Blood Cells % 0.0 %
[2025-01-18 09:56] LABS: Hematocrit 22.1 % (41.0-53.0); Mean Corpuscular Hemoglobin 25.7 pg (28.0-32.0); Mean Corpuscular Volume 77.9 fL (80.0-100.0)
[2025-01-18 10:03] LABS: Potassium 4.6 mmol/L (3.5-5.1)
[2025-01-18 10:04] LABS: Anion Gap 11 (5-15); Carbon Dioxide 24 mmol/L (20-31)
[2025-01-18 10:05] LABS: Chloride 96 mmol/L (98-107); Sodium 131 mmol/L (136-145)
[2025-01-18 10:10] LABS: BUN/Creatinine Ratio 21.3 (10.0-20.0)
[2025-01-18 10:16] LABS: Blood Urea Nitrogen 32 mg/dL (9-23); Calcium 8.6 mg/dL (8.7-10.4); Glucose 224 mg/dL (74-106)
[2025-01-18] MEDS: CLINDAMYCIN 600MG IV 50 ML IV ONE (11:04)
--- NOTE | 2025-01-18 11:05 | DVH ---
BILATERAL Lower Extremity Arterial Duplex Date: 01/18/2025 09:52 AM Clinical History: RLE necrotic lesions Comparison: US BILAT LOW EXT ART DUPLEX on DOS: 12/07/24 Technique: Duplex Doppler evaluation including color Doppler and spectral/pulsed waveform analysis of the lower extremity arteries was performed. Finding: RIGHT: Peak systolic velocities are as follows: TRAVELING ELECTRICIAN 120 cm/s triphasic waveform Deep femoral 63 cm/s triphasic waveform SFA proximal 94 cm/s triphasic waveform SFA mid-portion 115 cm/s triphasic waveform SFA distal 84 cm/s triphasic waveform Popliteal Proximal popliteal artery 92cm/s triphasic waveform Popliteal artery distally 118 cm/sec, triphasic waveform Posterior tibial N/V ANTERIOR TIBIAL ARTERY 47 CM/SEC MONOPHASIC WAVEFORM Dorsalis pedis 24 cm/s MONOPHASIC WAVEFORM The waveforms are MONOPHASIC WAVEFORM IN THE ANTERIOR TIBIAL ARTERY AND DORSALIS PEDIS. TRIPHASIC WAVEFORMS OTHERWISE THROUGHOUT. LEFT: Peak systolic velocities are as follows: TRAVELING ELECTRICIAN 87 cm/s triphasic waveform Deep femoral 105 cm/s triphasic waveform SFA proximal 23 cm/s biphasic waveform SFA mid-portion 33 cm/s biphasic waveform SFA distal 29 cm/s biphasic waveform Popliteal Proximal popliteal artery: 30 cm/s monophasic waveform Distal popliteal artery: 25 cm/sec monophasic waveform Posterior tibial 6 cm/s: Monophasic waveform Anterior tibial 12 cm/s: Monophasic waveform Dorsalis pedis 8 cm/s: Monophasic waveform The waveforms are biphasic and triphasic waveform proximal popliteal artery. Monophasic waveform distal popliteal artery. REFERENCE VALUES, [facility] ([facility]) vascular Imaging Lab Criteria: Peak systolic velocity ranges (in cm/sec) are as follows: <150 cm/s - <20 % stenosis 150-200 cm/s - 20-49% stenosis 200-300 cm/s - 50-75% stenosis >300 cm/s -> 75% stenosis IMPRESSION: 1. There is no evidence for peripheral vascular insufficiency in the right lower extremity proximal to the popliteal artery with monophasic waveform distal to the popliteal artery. 2. There is no evidence for peripheral vascular insufficiency in the left lower extremity proximal to the popliteal artery with monophasic waveform noted distal to the popliteal artery.. 3. No significant focal stenosis is identified.
--- NOTE | 2025-01-18 11:12 | DVH ---
CLINICAL INDICATION: r/o osteomyelitis. TECHNIQUE: Noncontrast CT of the right foot was performed. Sagittal and coronal reformatted images are provided. COMPARISON: Radiographs of the right foot dated 12/07/2024. CT Dose: CTDI volume is 7.75 mGy. Dose-length product is 169.9 mGy*cm FINDINGS: Patient is status post amputation of the 1st metatarsal at the level of the proximal 1st metatarsal bone. There is irregular lucency at the amputation site in the 1st metatarsal with adjacent soft tissue gas. There are cortical erosions in the dorsal surface of the medial cuneiform also with adjacent soft tissue gas. There is gas within the 2nd metatarsal head, all of the 2nd and 3rd toe phalanges, 4th middle and distal phalanx and irregular cortical erosion in the 5th metatarsal head. These findings are concerning for osteomyelitis. There is diffuse soft tissue swelling and emphysema throughout the forefoot. There is additional cortical irregularity in the articular surface of the proximal 1st metatarsal at the tarsometatarsal joint which may represent additional osteomyelitis versus pathologic fracture in the base of the 1st metatarsal bone. Diffuse arterial calcifications are noted. IMPRESSION: 1. Status post amputation of the first digit at the level of the proximal phalanx. 2. Osteomyelitis in the 1st metatarsal, medial cuneiform, 2nd, 3rd, 4th toes and 5th metatarsal head as described. 3. Additional osteomyelitis with possible pathologic fracture through the 1st metatarsal at the level of the tarsometatarsal joint. 4. Diffuse cellulitis in the foot presumably with gas-forming bacteria. All CT scans at this medical facility are performed using dose modulation techniques as appropriate to a performed exam including the following: Automated exposure control was utilized; adjustment of the MA and/or KV according to patient size; and use of iterative reconstruction technique.
[2025-01-18 11:14] VITALS: PULSE 86; RESP 16; O2SAT 98
--- NOTE | 2025-01-18 11:26 | DVHHPRES ---
History of Present Illness Resident Creating Document: CASANDRA MORRELL History of Present Illness Shila Oliver is a 69-year-old male patient who presents to the ED with chief complaint of generalized weakness, insomnia, decreased appetite and nonhealing right foot wound. Patient went to the clinic the day of admission where he was referred to see department with suspicion of osteomyelitis. Patient was recently admitted in the hospital with AGATA on CKD with hyperkalemia and severe anemia requiring IV fluids, hyperkalemia protocol and blood transfusion, patient was evaluated by Podiatry previously and refused amputation at that time, he was discharged with p.o. antibiotics and home health services. Denies any other associated symptom including fever, chills, unintentional weight loss and shortness of breath. 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 Denies current tobacco, alcohol and other drug abuse Allergies: Denies Home medication: Metformin, statins and blood pressure medication (he was supposed to take aspirin and clopidogrel, but he stopped taking) Patient seen and examined at bedside. Currently has no new complaints. Admitted for further management. Past Medical History Per HPI Past Surgical History Per HPI Family History Per HPI Past Social History Per HPI Review of Systems Review of Systems Per HPI Allergies: Coded Allergies: NO KNOWN ALLERGIES (Unverified , 12/07/24) Exam Vital Signs Vital Signs Date Time Temp Pulse Resp B/P (MAP) Pulse Ox O2 Delivery O2 Flow Rate FiO2 01/18/25 11:13 97.8 86 16 178/97 (124) 98 97.8 Exam Patient lying in bed, in no acute distress General: Lucid, afebrile, mucosae are dry, pale conjunctivae Cardiovascular: Normal S1 and S2. No murmurs, gallops or rubs Respiratory: Normal ventilation mechanics. Clear lung sounds on auscultation Abdomen: Soft, nontender, no organomegaly, normal bowel sounds MSK/skin: Mobilizes 4 limbs. Skin is dry and warm. Necrotic toes in right foot, purulent discharge from right hallux amputation. Neurological: Oriented in 3 spheres. No motor no sensitive deficits. Pupils are isocoric and reactive Labs/Xrays Labs Test 01/18/25 09:41 Range/Units White Blood Count 11.0 H 4.4-10.8 10^3/uL Red Blood Count 2.84 L 4.5-5.90 10^6/uL Hemoglobin 7.3 L 13.5-17.5 g/dL Hematocrit 22.1 L 41.0-53.0 % Mean Corpuscular Volume 77.9 L 80.0-100.0 fL Mean Corpuscular Hemoglobin 25.7 L 28.0-32.0 pg Mean Corpuscular Hemoglobin Concent 33.0 32.0-36.0 g/dL Red Cell Distribution Width 15.3 H 11.8-14.3 % Platelet Count 739 H 140-450 10^3/uL Mean Platelet Volume 7.8 6.9-10.8 fL Neutrophils (%) (Auto) 88.6 H 37.0-80.0 % Lymphocytes (%) (Auto) 5.1 L 10.0-50.0 % Monocytes (%) (Auto) 5.3 0.0-12.0 % Eosinophils (%) (Auto) 0.3 0.0-7.0 % Basophils (%) (Auto) 0.7 0.0-2.0 % Neutrophils # (Auto) 9.7 H 1.6-8.6 10 ^3/uL Lymphocytes # (Auto) 0.6 0.4-5.4 10 ^3/uL Monocytes # (Auto) 0.6 0-1.3 10 ^3/uL Eosinophils # (Auto) 0 0-0.8 10 ^3/uL Basophils # (Auto) 0.1 0-0.2 10 ^3/uL Nucleated Red Blood Cells 0.0 % Sodium Level 131 L 136-145 mmol/L Potassium Level 4.6 3.5-5.1 mmol/L Chloride Level 96 L 98-107 mmol/L Carbon Dioxide Level 24 20-31 mmol/L Anion Gap 11 5-15 Blood Urea Nitrogen 32 H 9-23 mg/dL Creatinine 1.50 H 0.700-1.30 mg/dL Glomerular Filtration Rate Calc 51 >90 mL/min BUN/Creatinine Ratio 21.3 H 10.0-20.0 Serum Glucose 224 H 74-106 mg/dL Calcium Level 8.6 L 8.7-10.4 mg/dL SEPSIS Sepsis Screen Date sepsis recognized/suspect: Jan 18, 2025 Time Sepsis recognized/suspect: 928 Recent Procedure: No On Antibiotic Therapy: No Respiratory Rate >20: No Heart Rate >90: No Temp<36 C (96.8 F) or >38.3 C: No SBP <90 or MAP <65 mmHG: No New Acute Mental Status Change: No Is the patient on CPAP, BIPAP,: No Physician Orders Bilat Low Ext Art Duplex (01/18/25 09:31) *Podiatry Consult Rosalina(Dv) (01/18/25 09:31) * Wound Consult (01/18/25 ) Ct R Foot Wo Contrast (01/18/25 10:07) Admit (01/18/25 11:18) Code Status (01/18/25 11:18) Acetaminophen Tablet (Tylenol Tablet) (01/18/25 11:30) Ondansetron Hcl (Zofran) (01/18/25 11:30) Complete Blood Count (01/19/25 04:00) Comprehensive Metabolic Panel (01/19/25 04:00) Npo (Nothing By Mouth) Diet (01/18/25 Lunch) Echo 2d Mode Cardiac Dop (01/18/25 11:18) Morphine Sulfate Injection (01/18/25 11:30) Lovenox 40mg (01/19/25 10:00) Oxygen By Nasal Cannula (01/18/25 11:18) Stat Ekg For Chest Pain (01/18/25 11:18) Notify Md Of Changes From Base (01/18/25 11:18) Project Portfolio Analyst For 24 Hours (01/18/25 11:18) Emergency Dysrhythmia Protocol (01/18/25 11:18) Rhythm Strips Once Every Shift (01/18/25 11:18) Blood Culture (01/18/25 11:18) Wound Culture W/ Gs (01/18/25 11:18) Urine Bacterial Culture (01/18/25 11:18) Vitamin D, 25-Hydroxy (01/18/25 11:18) Vitamin B12 (01/18/25 11:18) Urinalysis (01/18/25 11:18) Thyroid Stimulating Hormone (01/18/25 11:18) PTPTT (01/18/25 11:18) Phosphorus (01/18/25 11:18) Magnesium (01/18/25 11:18) Lipid Panel (01/18/25 11:18) Lactic Acid W/ Reflex Order (01/18/25 11:18) Hemoglobin A1c (01/18/25 11:18) Drug Screen (01/18/25 11:18) Vancomycin (01/18/25 11:30) Zosyn Extended Infusion (01/18/25 14:00) Glucose Blood (Accu-Chek Comfort Curve T (01/18/25 12:00) Mild Sliding Scale Npo - Q6hr (01/18/25 12:00) Dextrose 50% Syringe (01/18/25 11:30) Vital Signs Date Time Temp Pulse Resp B/P (MAP) Pulse Ox O2 Delivery O2 Flow Rate FiO2 01/18/25 11:13 97.8 86 16 178/97 (124) 98 97.8 01/18/25 09:24 96.9 88 14 161/88 100 96.9 Laboratory Tests Test 01/18/25 09:41 White Blood Count 11.0 10^3/uL (4.4-10.8) H Medications Medications Dose Ordered Sig/Jessica Route Start Time Stop Time Status Last Admin Dose Admin Clindamycin Phosphate 50 ml @ 50 mls/hr ONCE ONCE IV 01/18/25 10:15 01/18/25 11:14 DC 01/18/25 11:04 50 MLS/HR Assessment/Plan Assessment/Plan ASSESSMENT Osteomyelitis of right 1st metatarsal and 2nd 5th digits of right foot. 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 Completed foot CT which showed amputation of right hallux with osteomyelitis of 1st metatarsal and 2nd to 5th digit osteomyelitis. Completed duplex of bilateral lower limbs which showed no significant stenosis. Consulted Podiatry planning on completing surgery on 01/13/2025. Patient NPO Ordered anemia workup Continue aspirin and statin. Start clopidogrel after amputation Consulted wound care Ordered pancultures Currently on empiric IV antibiotic (Zosyn and vancomycin) On insulin sliding scale Continue home medication for blood pressure management. Echocardiogram on 12/2024 shows concentric LVH with left atrial enlargement, mild annular calcification, LVEF 45-50 % with global hypokinesis, moderate TR and mild MR. Goals of care discussed with patient for over 18 minutes: Full code Discussed plan with Dr. Dawn, patient and nurses: Patient admitted to [facility] on empiric IV antibiotic, IV fluids and obtain cultures. Consulted podiatry and wound care. Planning on amputation on 01/19/2025. Patient has poor prognosis Plan discussed with: Patient, Other (Nurses) My Orders Orders - CASANDRA MORRELL RESIDENT Procedure Category Date Status Time Admit ADMIT 01/18/25 Transmitted 11:18 Code Status CODE 01/18/25 Transmitted 11:18 Acetaminophen Tablet PHA 01/18/25 Transmitted (Tylenol Tablet) 11:30 Ondansetron Hcl PHA 01/18/25 Transmitted (Zofran) 11:30 Complete Blood Count LAB 01/19/25 Verified 04:00 Comprehensive LAB 01/19/25 Verified Metabolic Panel 04:00 Npo (Nothing By DIET 01/18/25 Transmitted Mouth) Diet Lunch Echo 2d Mode Cardiac US 01/18/25 Transmitted DOP 11:18 Morphine Sulfate PHA 01/18/25 Transmitted Injection 11:30 Lovenox 40mg PHA 01/19/25 Transmitted 10:00 Oxygen By Nasal RT 01/18/25 Transmitted Cannula 11:18 Stat Ekg For Chest [facility] 01/18/25 Transmitted Pain 11:18 Notify Md Of Changes [facility] 01/18/25 Transmitted From Base 11:18 Project Portfolio Analyst For [facility] 01/18/25 Transmitted 24 Hours 11:18 Emergency Dysrhythmia [facility] 01/18/25 Transmitted Protocol 11:18 Rhythm Strips Once [facility] 01/18/25 Transmitted Every Shift 11:18 Blood Culture [facility] 01/18/25 Transmitted 11:18 Wound Culture W/ Gs [facility] 01/18/25 Transmitted 11:18 Urine Bacterial [facility] 01/18/25 Transmitted Culture 11:18 Vitamin D, 25-Hydroxy LAB 01/18/25 Transmitted 11:18 Vitamin B12 LAB 01/18/25 Transmitted 11:18 Urinalysis LAB 01/18/25 Transmitted 11:18 Thyroid Stimulating LAB 01/18/25 Transmitted Hormone 11:18 PTPTT LAB 01/18/25 Transmitted 11:18 Phosphorus LAB 01/18/25 Transmitted 11:18 Magnesium LAB 01/18/25 Transmitted 11:18 Lipid Panel LAB 01/18/25 Transmitted 11:18 Lactic Acid W/ Reflex LAB 01/18/25 Transmitted Order 11:18 Hemoglobin A1c LAB 01/18/25 Transmitted 11:18 Drug Screen LAB 01/18/25 Transmitted 11:18 Vancomycin PHA 01/18/25 Transmitted 11:30 Zosyn Extended PHA 01/18/25 Transmitted Infusion 14:00 Glucose Blood PHA 01/18/25 Transmitted (Accu-Chek Comfort 12:00 Mild Sliding Scale PHA 01/18/25 Transmitted Npo - Q6hr 12:00 Dextrose 50% Syringe PHA 01/18/25 Transmitted 11:30 Date of Service: Jan 18, 2025 Billing Provider: NATE DAWN MD Common Visit Codes: 97269-[id number] INP/OBS CARE (HIGH) Secondary Visit Codes: [id number] CARE PLAN 30 MINUTES CASANDRA MORRELL RESIDENT Jan 18, 2025 11:26
[2025-01-18] MEDS ORDERED: DEXTROSE (50%) 50ML SYRG IV PRN (11:30)
[2025-01-18] MEDS ORDERED: VANCOMYCIN PER PHARMACY 0 MG IV SCH (11:30)
[2025-01-18] MEDS: InsuLIN REG 1unit/0.01ml Soln (100units/ml) SC SCH (12:00)
[2025-01-18 12:57] LABS: INR 1.19 (0.9-1.15); Partial Thromboplastin Time 31.3 SEC (24.5-34.5); Prothrombin Time 12.4 sec (9.3-11.8)
[2025-01-18 13:10] LABS: Triglycerides 133.0 mg/dL (< 150)
[2025-01-18 13:11] LABS: Magnesium 2.1 mg/dL (1.6-2.6)
[2025-01-18 13:12] LABS: Cholesterol 125.0 mg/dL (< 200)
[2025-01-18 13:13] LABS: HDL Cholesterol 30.0 mg/dL (40-59)
[2025-01-18 13:21] VITALS: BP 165/82; PULSE 92; RESP 18; TEMP 97.5; O2SAT 99
[2025-01-18 14:34] VITALS: BP 168/88; PULSE 86; RESP 16; TEMP 98.6; O2SAT 96
[2025-01-18] MEDS: PIPERACILLIN-TAZOB 3.375GM 100 ML IV SCH (15:19)
[2025-01-18] MEDS: ACCU-CHEK COMFORT CURVE STRIP VI SCH (15:19)
[2025-01-18 16:56] VITALS: BP 163/87; PULSE 92; RESP 20; TEMP 97.9; O2SAT 99
[2025-01-18] MEDS: VANCOMYCIN 1.5GM/250ML 250 ML IV ONE (19:48)
[2025-01-18 20:00] VITALS: RESP 18
[2025-01-18] MEDS: MORPHINE SULFATE INJ 2 MG/ml SYRG IV PRN (20:19)
[2025-01-18 21:00] VITALS: BP 144/66; PULSE 109; TEMP 97.6; O2SAT 98
[2025-01-18 22:54] LABS: Wright Stain Ready for Review
[2025-01-18 22:55] LABS: Iron 19.0 ug/dL (65-175); Total Iron Binding Capacity 196.0 ug/dL (250-425)
[2025-01-18 23:39] LABS: Ferritin 138.0 ng/mL (22-322)
[2025-01-18] MEDS: ATORVASTATIN 20 MG TAB PO ONE (23:42)
--- NOTE | 2025-01-18 23:53 | DVH ---
CHEST RADIOGRAPH Indication: Pre-op Technique: Single frontal view of the chest was obtained COMPARISON: CT CHEST WITHOUT CONTRAST on DOS: 12/07/24, XY CHEST XRAY 1 VIEW on DOS: 12/07/24, XR CHEST 1 VIEW on DOS: 10/05/24 FINDINGS: Mild hazy opacity throughout the right lung. Cardiac silhouette is mildly enlarged. Mild diffuse prominence of the pulmonary vasculature. Bones and soft tissues demonstrate no significant abnormality. IMPRESSION: Cardiomegaly with pulmonary venous congestion. Mild hazy opacity throughout the right lung which could be related to a layering pleural effusion.
[2025-01-19] VITALS (11 sets, daily range): BP systolic 129–176; BP diastolic 51–103; PULSE 78–120; RESP 16–19; TEMP 97.4–98.5; O2SAT 94–98
[2025-01-19] MEDS: SODIUM CHLORIDE 0.9% 500 ML IV ONE (01:45)
[2025-01-19] MEDS: SODIUM CHLORIDE 0.9% 1,000 ML IV SCH (02:45)
[2025-01-19 05:21] LABS: Urine Protein, UAD 3+ (Negative)
[2025-01-19 05:25] LABS: Opiate Scree,Urine Neg (NEGATIVE)
[2025-01-19 05:26] LABS: Amphetamine Screen, Urine Neg (NEGATIVE); Barbiturate Scree,Urine Neg (NEGATIVE); Benzodiazephine Screen, Urine Neg (NEGATIVE); Cannabinoid Screen, Urine Neg (NEGATIVE); Cocaine Screen, Urine Neg (NEGATIVE); Phencyclidine Screen, Urine Neg (NEGATIVE)
[2025-01-19 05:35] LABS: Hematocrit 20.4 % (41.0-53.0); Mean Corpuscular Hemoglobin 25.3 pg (28.0-32.0); Mean Corpuscular Volume 77.6 fL (80.0-100.0); Nucleated Red Blood Cells % 0.0 %
[2025-01-19 05:39] LABS: Hemoglobin 6.6 g/dL (13.5-17.5)
[2025-01-19] MEDS: LIDOCAINE 1% HCL (LOCAL ANESTH.) INJ 20ML MDV ONE (06:50)
[2025-01-19 06:53] LABS: Alanine Aminotransferase 16 U/L (7-40); Anion Gap 12 (5-15); BUN/Creatinine Ratio 21.3 (10.0-20.0); Bilirubin, Total 0.6 mg/dL (0.2-1.0); Chloride 102 mmol/L (98-107); Potassium 4.5 mmol/L (3.5-5.1)
[2025-01-19 06:58] LABS: Albumin 2.8 g/dL (3.2-4.8); Alkaline Phosphatase 254 U/L (46-116); Blood Urea Nitrogen 27 mg/dL (9-23); Calcium 7.6 mg/dL (8.7-10.4); Carbon Dioxide 19 mmol/L (20-31); Glucose 128 mg/dL (74-106); Sodium 133 mmol/L (136-145); Total Protein 5.6 g/dL (5.7-8.2)
[2025-01-19] MEDS ORDERED: fentaNYL CITRATE 100 MCG/2 ML VL ONE (08:36)
[2025-01-19] MEDS ORDERED: PROPOFOL 10 MG/ML 20 ML IV ONE (08:36)
--- NOTE | 2025-01-19 09:07 | DVHCONRES ---
Date Seen: Jan 19, 2025 Reason for Consultation Right foot wound History of Present Illness Shila Oliver is a 69-year-old male patient who presents to the ED with chief complaint of generalized weakness, insomnia, decreased appetite and nonhealing right foot wound. Patient went to the clinic the day of admission where he was referred to see department with suspicion of osteomyelitis. Patient was recently admitted in the hospital with AGATA on CKD with hyperkalemia and severe anemia requiring IV fluids, hyperkalemia protocol and blood transfusion, patient was evaluated by Podiatry previously and refused amputation at that time, he was discharged with p.o. antibiotics and home health services. Denies any other associated symptom including fever, chills, unintentional weight loss and shortness of breath. Past Medical History See H&P Past Surgical History See H&P Family History: Diabetes mellitus G8 FATHER Hypertension G8 MOTHER Allergies: Coded Allergies: NO KNOWN ALLERGIES (Unverified , 12/07/24) Home Meds Active Scripts Amlodipine Besylate (NORVASC TABLET) 5 Mg Tb, 10 MG PO DAILY for 30 Days, #60 TAB 3 Refills Prov:GILBERT DAILY MD 12/08/24 Enalapril Maleate (Enalapril Maleate) 10 Mg Tab, 20 MG PO DAILY for 30 Days, #60 TAB 2 Refills Prov:GILBERT DAILY MD 12/08/24 Furosemide (Lasix) 20 Mg Tb, 1 TAB PO BID, #90 TAB 1 Refill Prov:GILBERT DAILY MD 12/08/24 Amoxicillin & Pot Clavulanate (AUGMENTIN TABLET) 875 Mg Tb, 875 MG PO BID for 14 Days, #28 TAB Prov:GILBERT DAILY MD 12/08/24 Current Medications Current Medications Medications (Trade) Dose Ordered Sig/Jessica Route PRN Reason Start Time Stop Time Status Last Admin Acetaminophen (Tylenol Tablet) 325 mg Q4HP PRN PO MILD PAIN (1-3 PAIN SCALE) 01/18/25 11:30 Ondansetron HCl (Zofran) 4 mg Q4HP PRN IV NAUSEA / VOMITING 01/18/25 11:30 Morphine Sulfate 2 mg Q4HPRN PRN IV SEVERE PAIN (7-10 PAIN SCALE) 01/18/25 11:30 01/18/25 20:19 Enoxaparin Sodium (Lovenox) 40 mg DAILY SC 01/19/25 10:00 01/19/25 08:25 DC Vancomycin HCl 0 ml @ 0 mls/hr PER PHARMACY IV 01/18/25 11:30 Piperacillin Sod/ Tazobactam Sod 100 ml @ 25 mls/hr Q8HR IV 01/18/25 14:00 01/19/25 06:34 Diagnostic Test (Pha) (Accu-Chek Comfort Curve T) 1 strip Q6HR 01/18/25 12:00 01/19/25 06:00 Insulin Human Regular (InsuLIN R) Q6HR SC 01/18/25 12:00 01/18/25 18:39 Dextrose 50 ml UD PRN IV Blood Sugar LESS THAN 60 01/18/25 11:30 Ergocalciferol (Vitamin D 50,000 Unit) 50,000 unit Q7D PO 01/19/25 10:00 Aspirin (Ecotrin Enteric Coated Tablet) 81 mg DAILY PO 01/19/25 10:00 Clopidogrel Bisulfate (Plavix) 75 mg DAILY PO 01/19/25 10:00 Future Hold Sodium Chloride 1,000 ml @ 60 mls/hr [id number] IV 01/18/25 23:00 01/19/25 02:45 Hydralazine HCl (Apresoline Tablet) 10 mg Q8HR PO 01/19/25 06:00 01/19/25 06:40 Vital Signs Vital Signs Date Time Temp Pulse Resp B/P (MAP) Pulse Ox O2 Delivery O2 Flow Rate FiO2 01/19/25 06:40 152/79 01/19/25 05:00 97.8 94 16 94 97.8 01/18/25 20:00 Room Air* 0 21 Physical Exam Dermatological: Skin is dry with mild erythema and some maceration around the wound site No gross deformities noted Mild non-pitting edema present bilaterally Right foot wound with cellulitis and purulent drainage Vascular: Dorsalis pedis and posterior tibial pulses are 1+ bilaterally Capillary refill is under 2 seconds Skin temperature is warm bilaterally Neurologic: Protective sensation is absent on the plantar forefoot bilaterally Monofilament testing reveals decreased sensation in multiple plantar sites Musculoskeletal: Range of motion at the ankle and MTP joints is within normal limits. Strength is 5/5 in all tested muscle groups. Gait is antalgic due to offloading of the affected limb. Labs/Diagnostic Data Labs Test 01/19/25 06:40 01/19/25 04:54 01/19/25 04:00 01/18/25 14:02 Range/Units POC Glucose 132 H 70-106 mg/dl White Blood Count 13.6 H 4.4-10.8 10^3/uL Red Blood Count 2.62 L 4.5-5.90 10^6/uL Hemoglobin 6.6 *L 13.5-17.5 g/dL Hematocrit 20.4 L 41.0-53.0 % Mean Corpuscular Volume 77.6 L 80.0-100.0 fL Mean Corpuscular Hemoglobin 25.3 L 28.0-32.0 pg Mean Corpuscular Hemoglobin Concent 32.6 32.0-36.0 g/dL Red Cell Distribution Width 14.7 H 11.8-14.3 % Platelet Count 654 H 140-450 10^3/uL Mean Platelet Volume 8.4 6.9-10.8 fL Neutrophils (%) (Auto) 91.9 H 37.0-80.0 % Lymphocytes (%) (Auto) 2.5 L 10.0-50.0 % Monocytes (%) (Auto) 4.9 0.0-12.0 % Eosinophils (%) (Auto) 0.2 0.0-7.0 % Basophils (%) (Auto) 0.5 0.0-2.0 % Neutrophils # (Auto) 12.5 H 1.6-8.6 10 ^3/uL Lymphocytes # (Auto) 0.3 L 0.4-5.4 10 ^3/uL Monocytes # (Auto) 0.7 0-1.3 10 ^3/uL Eosinophils # (Auto) 0 0-0.8 10 ^3/uL Basophils # (Auto) 0.1 0-0.2 10 ^3/uL Nucleated Red Blood Cells 0.0 % Sodium Level 133 L 136-145 mmol/L Potassium Level 4.5 3.5-5.1 mmol/L Chloride Level 102 98-107 mmol/L Carbon Dioxide Level 19 L 20-31 mmol/L Anion Gap 12 5-15 Blood Urea Nitrogen 27 H 9-23 mg/dL Creatinine 1.27 0.700-1.30 mg/dL Glomerular Filtration Rate Calc 62 >90 mL/min BUN/Creatinine Ratio 21.3 H 10.0-20.0 Serum Glucose 128 H 74-106 mg/dL Calcium Level 7.6 L 8.7-10.4 mg/dL Total Bilirubin 0.6 0.2-1.0 mg/dL Aspartate Amino Transferase (AST) 14 13-40 U/L Alanine Aminotransferase (ALT) 16 7-40 U/L Alkaline Phosphatase 254 H 46-116 U/L Total Protein 5.6 L 5.7-8.2 g/dL Albumin 2.8 L 3.2-4.8 g/dL Random Vancomycin Level 20.6 H 5-10 ug/mL Urine Color Light-yellow Yellow Urine Clarity Clear Clear Urine pH 6.5 5.0-9.0 Urine Specific [place] 1.017 1.001-1.035 Urine Protein 3+ H Negative Urine Ketones Negative Negative Urine Blood Trace H Negative /uL Urine Nitrite Negative Negative Urine Bilirubin Negative Negative Urine Urobilinogen Normal Negative mg/dL Urine Leukocyte Esterase Negative Negative /uL Urine RBC None seen 0 - 3 /hpf Urine Microscopic WBC 1 0-3 /HPF Urine Squamous Epithelial Cells Few <5 /hpf Urine Bacteria None seen None Seen /hpf Urine Glucose Trace Normal mg/dL Urine Opiates Screen Neg NEGATIVE Urine Fentanyl Screen Neg NEGATIVE Urine Barbiturates Screen Neg NEGATIVE Urine Phencyclidine Screen Neg NEGATIVE Urine Amphetamines Screen Neg NEGATIVE Urine Benzodiazepines Screen Neg NEGATIVE Urine Cocaine Screen Neg NEGATIVE Urine Cannabinoids Screen Neg NEGATIVE Lactic Acid Level 1.5 0.4-2.0 mmol/L Iron Level 19 L 65-175 ug/dL Total Iron Binding Capacity 196 L 250-425 ug/dL Percent Iron Saturation 9.7 L 20-55 % Test 01/18/25 13:51 01/18/25 09:41 Range/Units Reticulocyte Count (auto) 1.96 H 0.5-1.5 % Prothrombin Time 12.4 H 9.3-11.8 sec Prothrombin Time INR 1.19 H 0.9-1.15 Activated Partial Thromboplast Time 31.3 24.5-34.5 SEC Hemoglobin A1c 9.5 H <5.7 % A1C Phosphorus Level 4.0 2.4-5.1 mg/dL Magnesium Level 2.1 1.6-2.6 mg/dL Ferritin 138.0 22-322 ng/mL Triglycerides Level 133 < 150 mg/dL Cholesterol Level 125 < 200 mg/dL LDL Cholesterol 68 < 100 mg/dL HDL Cholesterol 30 L 40-59 mg/dL Vitamin B12 Level 897 211-911 pg/mL Vitamin D 25-Hydroxy 26.7 L 30.0-100 ng/mL Folic Acid 10.75 >5.38 ng/mL Thyroid Stimulating Hormone (TSH) 5.85 H 0.55-4.78 uIU/mL Problems(with codes): (1) Hyperkalemia (2) Anemia of chronic disease (3) Type 2 diabetes mellitus with hyperglycemia (4) Acute renal injury (5) Cellulitis of right foot (6) Dry gangrene (7) Cellulitis (8) Gangrene (9) Osteomyelitis (10) Acute kidney injury superimposed on CKD Plan/Recommendation ASSESSMENT: Patient is a 69 year old seen on the floor for a worsening ulcer PLAN: - The patients chart was reviewed, clinical findings were discussed with the patient, the etiologies of the conditions were discussed in detail, and a treatment plan was agreed to at this time, with both oral and written instructions provided. - reviewed advanced imaging - discussed plan is to perform an incision and drainage - patient NPO since midnight - take him to the OR today - we will get cultures in the OR - can weightbear as tolerated in postoperative shoe All questions were answered and concerns addressed to the patient's satisfaction. The patient was given the phone number to the clinic and was told how to make contact with the clinic should any concerns or questions arise. Patient understands that if any questions or concerns arise prior to the next appointment, we should be contacted immediately. FOLLOW-UP: Continue to follow while inpatient Plan discussed with: Patient Visit Coding Podiatry Date of Service if different f: Jan 19, 2025 Billing Provider: ESTEBAN CHRISTINE DPM Podiatry Common Visit Codes: CONSULT ONLY Podiatry Consult Codes: 94552-OJ/OBS [id number] NEW/EST HI 80 ESTEBAN CHRISTINE DPM Jan 19, 2025 09:07
[2025-01-19] MEDS: BUPIVACAINE 0.5% P/F INJ 10 ML VIAL ONE (09:55)
[2025-01-19] MEDS ORDERED: ENOXAPARIN SOD 40 MG/0.4 ML SYRINGE SC SCH (10:00)
--- NOTE | 2025-01-19 10:16 | DVHOP2 ---
Operative Report - 2 Report Details Date: 01/19/25 Preop Diagnosis: 1. Right foot osteomyelitis 2. Right foot abscess 3. Right foot cellulitis 4. Right foot diabetic ulcer Postop Diagnosis: Same as preop Surgeon: Esteban Christine MD Anesthesiologist: See anesthesia Anesthesia: Mac Consent: The patient was informed of the risks and benefits of the procedure. These include but are not limited to complications of anesthesia, postoperative infection, incomplete relief of symptoms, recurrence of symptoms, damage to blood vessels, nerves and tendons, deep venous thrombosis, pulmonary embolism and possible need for repeat surgery in the future. Complications: None Estimated Blood Loss: Minimal Fluids: See anesthesia Findings: Consistent with diagnosis Indications for Surgery: Worsening foot wound Name of Procedure Performed 1. Right foot I&D to bone (49276) 2. Right foot partial first ray amputation (28169) 3. Right foot partial second ray amputation (74671) 4. Right foot partial third ray amputation (50157) 5. Right foot partial fourth ray amputation (31918) 6. Right foot bone biopsy () Procedure Details Procedure Details: PRE-PROCEDURE INFORMATION: In the pre-op holding area, the extremity to be operated on was clearly marked and the patient verified correct laterality of the marking. The patient was transferred to the OR table and placed in a supine position. A timeout was performed in which identification of the correct patient, procedure, location, and materials was done. The right foot and leg were prepped and draped in normal sterile fashion. DESCRIPTION OF PROCEDURE: Attention was directed to the right foot where area of fluctuance was noted. An incision was made over this area and was deepened through blunt dissection. The incision was deepened to the level of abscess and bone. Care was taken to the dissection to avoid any neurovascular and tendinous structures. The incision was deepened to the bone, and the abscess appeared to be purulent fluid consistent with pus. The cortices of the bone was then removed with rongeur an all necrotic tissue. It was noted at that point due to the significant necrosis that partial ray amputation was needed. Attention was directed to the right 1st metatarsal. This incision was deepened to the level of the bone and utilizing sharp dissection, the proximal aspect of the metatarsal was then excised with a bone cutter. Utilizing a rongeur and other instrumentation, all devitalized soft tissue was removed from the area. The infected bone that had been amputated was sent for culture and pathology. The wound was irrigated copiously with normal saline using cysto tubing. Attention was directed to the right 2nd metatarsal. This incision was deepened to the level of the bone and utilizing sharp dissection, the proximal aspect of the metatarsal was then excised with a bone cutter. Utilizing a rongeur and other instrumentation, all devitalized soft tissue was removed from the area. The infected bone that had been amputated was sent for culture and pathology. The wound was irrigated copiously with normal saline using cysto tubing. Attention was directed to the right 3rd metatarsal. This incision was deepened to the level of the bone and utilizing sharp dissection, the proximal aspect of the metatarsal was then excised with a bone cutter. Utilizing a rongeur and other instrumentation, all devitalized soft tissue was removed from the area. The infected bone that had been amputated was sent for culture and pathology. The wound was irrigated copiously with normal saline using cysto tubing. Attention was directed to the right 4th metatarsal. This incision was deepened to the level of the bone and utilizing sharp dissection, the proximal aspect of the metatarsal was then excised with a bone cutter. Utilizing a rongeur and other instrumentation, all devitalized soft tissue was removed from the area. The infected bone that had been amputated was sent for culture and pathology. The wound was irrigated copiously with normal saline using cysto tubing. POSTOPERATIVE INFORMATION: The patient tolerated the above noted procedure and anesthesia well and was transferred to the PACU with vital signs stable, and vascular status intact with capillary refill intact to all digits. Recommend patient is evaluated by vascular to see if BKA as more ability to heal verse show parts amputation at this point. Continue IV antibiotics Specimen: Right 2nd through 4th digits Condition Good Disposition Still a Patient Visit Coding Podiatry Date of Service if different f: Jan 19, 2025 Billing Provider: ESTEBAN CHRISTINE DPM Podiatry Common Visit Codes: PROCEDURE ONLY ESTEBAN CHRISTINE DPM Jan 19, 2025 10:16
--- NOTE | 2025-01-19 17:19 | DVHPNRES ---
Progress Note Date Seen: Jan 19, 2025 Resident Creating Document: BECKIE QUIJANO Medical Necessity Reason Pt with a Central, PICC or Fol: No Subjective Review of Systems Shila Oliver is a 69-year-old male patient who presents to the ED with chief complaint of generalized weakness, insomnia, decreased appetite and nonhealing right foot wound. Patient went to the clinic the day of admission where he was referred to see department with suspicion of osteomyelitis. Patient was recently admitted in the hospital with AGATA on CKD with hyperkalemia and severe anemia requiring IV fluids, hyperkalemia protocol and blood transfusion, patient was evaluated by Podiatry previously and refused amputation at that time, he was discharged with p.o. antibiotics and home health services. Denies any other associated symptom including fever, chills, unintentional weight loss and shortness of breath. 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 Denies current tobacco, alcohol and other drug abuse Allergies: Denies Home medication: Metformin, statins and blood pressure medication (he was supposed to take aspirin and clopidogrel, but he stopped taking) Objective vital signs Vital Sign Date Time Temp Pulse Resp B/P (MAP) Pulse Ox O2 Delivery O2 Flow Rate FiO2 01/19/25 16:24 97.4 100 17 148/88 (108) 98 97.4 01/19/25 10:14 Room Air 0 97 Total Intake and Output 01/18/25 01/18/25 01/19/25 15:00 23:00 07:00 Intake Total 50 ml 250 ml Output Total 1 ml Balance 50 ml 249 ml medications Current Medications Medications Dose Ordered Sig/Jessica Route Start Time Stop Time Status Last Admin Dose Admin Acetaminophen 325 mg Q4HP PRN PO 11/25/25 11:30 Ondansetron HCl 4 mg Q4HP PRN IV 01/18/25 11:30 Morphine Sulfate 2 mg Q4HPRN PRN IV 01/18/25 11:30 01/18/25 20:19 2 MG Vancomycin HCl 0 ml @ 0 mls/hr PER PHARMACY IV 01/18/25 11:30 Piperacillin Sod/ Tazobactam Sod 100 ml @ 25 mls/hr Q8HR IV 01/18/25 14:00 01/19/25 09:47 Diagnostic Test (Pha) 1 strip Q6HR 01/18/25 12:00 01/19/25 06:00 1 STRIP Insulin Human Regular Q6HR SC 01/18/25 12:00 01/18/25 18:39 2 UNITS Dextrose 50 ml UD PRN IV 01/18/25 11:30 Ergocalciferol 50,000 unit Q7D PO 01/19/25 10:00 Aspirin 81 mg DAILY PO 01/19/25 10:00 Clopidogrel Bisulfate 75 mg DAILY PO 01/19/25 10:00 Hold Sodium Chloride 1,000 ml @ 60 mls/hr [id number] IV 01/18/25 23:00 01/19/25 16:43 60 MLS/HR Hydralazine HCl 10 mg Q8HR PO 01/19/25 06:00 01/19/25 15:20 10 MG Examination Patient lying in bed, in no acute distress General: Lucid, afebrile, mucosae are dry, pale conjunctivae Cardiovascular: Normal S1 and S2. No murmurs, gallops or rubs Respiratory: Normal ventilation mechanics. Clear lung sounds on auscultation Abdomen: Soft, nontender, no organomegaly, normal bowel sounds MSK/skin: Mobilizes 4 limbs. Skin is dry and warm. Necrotic toes in right foot, purulent discharge from right hallux amputation. Neurological: Oriented in 3 spheres. No motor no sensitive deficits. Pupils are isocoric and reactive laboratory and microbiology Laboratory Tests 01/19/25 04:54 Test 01/19/25 04:54 Range/Units Serum Glucose 128 H 74-106 mg/dL Microbiology Date/Time Source Procedure Growth Status 01/18/25 19:50 Nose MRSA Screen - Final Complete 01/18/25 14:02 Blood Blood Culture - Preliminary NO GROWTH AFTER 24 HOURS OF INCUBATION. Resulted Problem List/Assessment/Plan Problem List/Assessment/Plan Assessment and plan S/P partial amputation of right foot digits Right foot osteomyelitis Right foot abscess Right foot cellulitis Right foot diabetic ulcer History of amputation of right foot 1st digit. History of peripheral artery disease status post stent placement Podiatry consult Next phase of surgery planned for Admit to Med surge Completed foot CT which showed amputation of right hallux with osteomyelitis of 1st metatarsal and 2nd to 5th digit osteomyelitis. Completed duplex of bilateral lower limbs which showed no significant stenosis. Continue aspirin and statin. 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 Echocardiogram on 12/2024 shows concentric LVH with left atrial enlargement, mild annular calcification, LVEF 45-50 % with global hypokinesis, moderate TR and mild MR. Target in-hospital blood glucose less than 180. Internal hemorrhoids Follow up with PCP on discharge Code status full code Case discussed with Dr. Jordan Plan discussed with: Patient My Orders My Orders Orders - BECKIE QUIJANO Procedure Category Date Status Time Complete Blood Count LAB 01/20/25 Verified 04:00 Comprehensive LAB 01/20/25 Verified Metabolic Panel 04:00 Date of Service: Jan 19, 2025 Billing Provider: CLYDE HAYNES MD Common Visit Codes: [id number] INP/OBS CARE(HIGH) BECKIE QUIJANO RESIDENT Jan 19, 2025 17:19
[2025-01-19] MEDS: ACETAMINOPHEN 325 MG TAB PO PRN (21:22)
[2025-01-20] VITALS (7 sets, daily range): BP systolic 156–170; BP diastolic 82–94; PULSE 93–102; RESP 17–20; TEMP 98.1–98.8; O2SAT 94–99
[2025-01-20 05:24] LABS: Hemoglobin 7.9 g/dL (13.5-17.5); Mean Corpuscular Hemoglobin 26.2 pg (28.0-32.0); Nucleated Red Blood Cells % 0.0 %
[2025-01-20 05:27] LABS: Hematocrit 24.1 % (41.0-53.0); Mean Corpuscular Volume 79.5 fL (80.0-100.0)
[2025-01-20 05:55] LABS: Alanine Aminotransferase 16 U/L (7-40); Anion Gap 9 (5-15); BUN/Creatinine Ratio 17.5 (10.0-20.0); Carbon Dioxide 21 mmol/L (20-31); Chloride 102 mmol/L (98-107); Potassium 4.5 mmol/L (3.5-5.1); Total Protein 5.7 g/dL (5.7-8.2)
[2025-01-20 05:56] LABS: Bilirubin, Total 0.6 mg/dL (0.2-1.0)
[2025-01-20 06:09] LABS: Albumin 3.0 g/dL (3.2-4.8); Alkaline Phosphatase 244 U/L (46-116); Blood Urea Nitrogen 24 mg/dL (9-23); Calcium 7.7 mg/dL (8.7-10.4); Glucose 239 mg/dL (74-106); Sodium 132 mmol/L (136-145)
[2025-01-20] MEDS: ERGOCALCIFEROL 50,000 UNIT(1.25MG) CAP PO SCH (08:09)
[2025-01-20] MEDS: ASPirin-EC 81 mg tab PO SCH (08:10)
[2025-01-20] MEDS: VANCOMYCIN 750MG KIT 100 ML IV ONE (12:29)
--- NOTE | 2025-01-20 13:34 | DVHPNRES ---
Progress Note Date Seen: Jan 20, 2025 Resident Creating Document: BECKIE QUIJANO Medical Necessity Reason Pt with a Central, PICC or Fol: No Subjective Review of Systems Patient seen at bedside. He reports that the pain has came down. No new complaints. Wound cultures pending. Objective vital signs Vital Sign Date Time Temp Pulse Resp B/P (MAP) Pulse Ox O2 Delivery O2 Flow Rate FiO2 01/20/25 08:33 98.8 94 20 162/88 (112) 94 98.8 01/20/25 08:00 Room Air* 0 21 Total Intake and Output 01/19/25 01/19/25 01/20/25 15:00 23:00 07:00 Intake Total 1200 ml 420 ml 140 ml Output Total 500 ml 200 ml Balance 1200 ml -80 ml -60 ml medications Current Medications Medications Dose Ordered Sig/Jessica Route Start Time Stop Time Status Last Admin Dose Admin Acetaminophen 325 mg Q4HP PRN PO 01/18/25 11:30 01/20/25 06:54 325 MG Ondansetron HCl 4 mg Q4HP PRN IV 01/18/25 11:30 Morphine Sulfate 2 mg Q4HPRN PRN IV 01/18/25 11:30 01/19/25 22:47 2 MG Vancomycin HCl 0 ml @ 0 mls/hr PER PHARMACY IV 01/18/25 11:30 Piperacillin Sod/ Tazobactam Sod 100 ml @ 25 mls/hr Q8HR IV 01/18/25 14:00 01/19/25 09:47 Diagnostic Test (Pha) 1 strip Q6HR 01/18/25 12:00 01/19/25 06:00 1 STRIP Insulin Human Regular Q6HR SC 01/18/25 12:00 01/20/25 12:16 6 UNITS Dextrose 50 ml UD PRN IV 01/18/25 11:30 Ergocalciferol 50,000 unit Q7D PO 01/19/25 10:00 01/20/25 08:09 50,000 UNIT Aspirin 81 mg DAILY PO 01/19/25 10:00 01/20/25 09:58 81 MG Clopidogrel Bisulfate 75 mg DAILY PO 01/19/25 10:00 Hold Sodium Chloride 1,000 ml @ 60 mls/hr [id number] IV 01/18/25 23:00 01/20/25 09:43 60 MLS/HR Hydralazine HCl 10 mg Q8HR PO 01/19/25 06:00 01/20/25 06:07 10 MG Examination Patient lying in bed, in no acute distress General: Lucid, afebrile, mucosae are dry, pale conjunctivae Cardiovascular: Normal S1 and S2. No murmurs, gallops or rubs Respiratory: Normal ventilation mechanics. Clear lung sounds on auscultation Abdomen: Soft, nontender, no organomegaly, normal bowel sounds MSK/skin: Mobilizes 4 limbs. Skin is dry. Amputated toes wrapped in bandage. Weak posterior tibial pulse palpated. Neurological: Oriented in 3 spheres. No motor no sensitive deficits. Pupils are isocoric and reactive laboratory and microbiology Laboratory Tests 01/20/25 04:53 Test 01/20/25 04:53 Range/Units Serum Glucose 239 #H 74-106 mg/dL Microbiology Date/Time Source Procedure Growth Status 01/19/25 10:03 Foot Right Gram Stain - Final Resulted 01/19/25 10:03 Foot Right Anaerobic Culture - Preliminary Resulted 01/19/25 10:03 Foot Right Aerobic Culture - Preliminary Resulted 01/19/25 04:00 Voided Urine Urine Culture - Preliminary No growth Resulted 01/18/25 14:02 Blood Blood Culture - Preliminary NO GROWTH AFTER 24 HOURS OF INCUBATION. Resulted Labs and/or images reviewed: Labs reviewed by me, Image(s) reviewed by me Problem List/Assessment/Plan Problem List/Assessment/Plan Assessment and plan S/P partial amputation of right foot digits Right foot osteomyelitis Right foot abscess Right foot cellulitis Right foot diabetic ulcer History of amputation of right foot 1st digit. History of peripheral artery disease status post stent placement Podiatry consult Dressing to be undressed by Podiatry on Friday Admit to [facility] Completed foot CT which showed amputation of right hallux with osteomyelitis of 1st metatarsal and 2nd to 5th digit osteomyelitis. Completed duplex of bilateral lower limbs which showed no significant stenosis. Continue aspirin and statin. 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 Echocardiogram on 12/2024 shows concentric LVH with left atrial enlargement, mild annular calcification, LVEF 45-50 % with global hypokinesis, moderate TR and mild MR. Target in-hospital blood glucose less than 180. Internal hemorrhoids Follow up with PCP on discharge Goals of care discussed with the patient for 20 minutes; full code Case discussed with Dr. Robison Plan discussed with: Patient, Other (Nurse) Date of Service: Jan 20, 2025 Billing Provider: AUDREY ROBISON MD Common Visit Codes: [id number] INP/OBS CARE(HIGH) Secondary Visit Codes: [id number] CARE PLAN 30 MINUTES (20 minutes) BECKIE QUIJANO RESIDENT Jan 20, 2025 13:34 AUDREY ROBISON MD Jan 24, 2025 10:24
[2025-01-20] MEDS ORDERED: POLYETHYLENE GLYCOL 17 GM PWDR PO PRN (15:15)
[2025-01-20] MEDS ORDERED: BISACODYL 5 MG EC TAB PO PRN (15:15)
[2025-01-20] MEDS: hydrALAZINE HCL 20 MG/ML VL IV PRN (17:12)
[2025-01-21] VITALS (8 sets, daily range): BP systolic 91–153; BP diastolic 64–88; PULSE 68–105; RESP 17–18; TEMP 97.4–98.4; O2SAT 96–97
[2025-01-21] MEDS: MELATONIN 5 MG TAB PO ONE (01:05)
[2025-01-21 06:35] LABS: Hematocrit 21.7 % (41.0-53.0); Hemoglobin 7.3 g/dL (13.5-17.5); Mean Corpuscular Hemoglobin 26.4 pg (28.0-32.0); Mean Corpuscular Volume 78.2 fL (80.0-100.0); Nucleated Red Blood Cells % 0.0 %
[2025-01-21 06:49] LABS: Alanine Aminotransferase 15 U/L (7-40); Anion Gap 10 (5-15); BUN/Creatinine Ratio 18.7 (10.0-20.0); Carbon Dioxide 23 mmol/L (20-31); Chloride 102 mmol/L (98-107); Potassium 4.1 mmol/L (3.5-5.1)
[2025-01-21 06:50] LABS: Bilirubin, Total 0.5 mg/dL (0.2-1.0)
[2025-01-21 06:52] LABS: Albumin 2.8 g/dL (3.2-4.8); Alkaline Phosphatase 249 U/L (46-116); Blood Urea Nitrogen 25 mg/dL (9-23); Calcium 8.0 mg/dL (8.7-10.4); Glucose 118 mg/dL (74-106); Sodium 135 mmol/L (136-145); Total Protein 5.5 g/dL (5.7-8.2)
[2025-01-21] MEDS: BISACODYL 5 MG EC TAB PO PRN (09:27)
[2025-01-21] MEDS: POLYETHYLENE GLYCOL 17 GM PWDR PO PRN (09:27)
[2025-01-21] MEDS: VANCOMYCIN 500mg/100mL 100 ML IV ONE (11:52)
--- NOTE | 2025-01-21 15:57 | DVHPNRES ---
Progress Note Date Seen: Jan 21, 2025 Resident Creating Document: BECKIE QUIJANO Medical Necessity Reason Pt with a Central, PICC or Fol: No Subjective Review of Systems Patient seen at bedside. No new complaints. Wound cultures pending. Objective vital signs Vital Sign Date Time Temp Pulse Resp B/P (MAP) Pulse Ox O2 Delivery O2 Flow Rate FiO2 01/21/25 15:12 144/81 01/21/25 13:00 97.8 89 17 97 97.8 01/21/25 08:00 Room Air* 0 21 Total Intake and Output 01/20/25 01/20/25 01/21/25 15:00 23:00 07:00 Intake Total 400 ml 415 ml 700 ml Output Total 800 ml Balance 400 ml 415 ml -100 ml medications Current Medications Medications Dose Ordered Sig/Jessica Route Start Time Stop Time Status Last Admin Dose Admin Acetaminophen 325 mg Q4HP PRN PO 01/18/25 11:30 01/20/25 14:28 325 MG Ondansetron HCl 4 mg Q4HP PRN IV 01/18/25 11:30 Morphine Sulfate 2 mg Q4HPRN PRN IV 01/18/25 11:30 01/21/25 04:19 2 MG Vancomycin HCl 0 ml @ 0 mls/hr PER PHARMACY IV 01/18/25 11:30 Piperacillin Sod/ Tazobactam Sod 100 ml @ 25 mls/hr Q8HR IV 01/18/25 14:00 01/21/25 15:12 25 MLS/HR Diagnostic Test (Pha) 1 strip Q6HR 01/18/25 12:00 01/21/25 10:59 1 STRIP Insulin Human Regular Q6HR SC 01/18/25 12:00 01/21/25 11:09 2 UNITS Dextrose 50 ml UD PRN IV 01/18/25 11:30 Ergocalciferol 50,000 unit Q7D PO 01/19/25 10:00 01/20/25 08:09 50,000 UNIT Aspirin 81 mg DAILY PO 01/19/25 10:00 01/21/25 08:44 81 MG Clopidogrel Bisulfate 75 mg DAILY PO 01/19/25 10:00 Hold Sodium Chloride 1,000 ml @ 60 mls/hr [id number] IV 01/18/25 23:00 01/21/25 01:05 60 MLS/HR Hydralazine HCl 10 mg Q8HR PO 01/19/25 06:00 01/21/25 15:12 10 MG Bisacodyl 5 mg DAILYP PRN PO 01/20/25 16:00 01/21/25 09:27 5 MG Polyethylene Glycol 17 gm DAILYPRN PRN PO 01/20/25 16:00 01/21/25 09:27 17 GM Hydralazine HCl 10 mg Q4HPRN PRN IV 01/20/25 17:00 01/21/25 08:44 10 MG Amlodipine Besylate 5 mg DAILY PO 01/21/25 10:00 01/21/25 08:44 5 MG Examination Patient lying in bed, in no acute distress General: Lucid, afebrile, mucosae are dry, pale conjunctivae Cardiovascular: Normal S1 and S2. No murmurs, gallops or rubs Respiratory: Normal ventilation mechanics. Clear lung sounds on auscultation Abdomen: Soft, nontender, no organomegaly, normal bowel sounds MSK/skin: Mobilizes 4 limbs. Skin is dry. Amputated toes wrapped in bandage. Weak posterior tibial pulse palpated. Neurological: Oriented in 3 spheres. No motor no sensitive deficits. Pupils are isocoric and reactive laboratory and microbiology Laboratory Tests 01/21/25 05:32 Test 01/21/25 05:32 Range/Units Serum Glucose 118 #H 74-106 mg/dL Microbiology Date/Time Source Procedure Growth Status 01/19/25 10:03 Foot Right Gram Stain - Final Resulted 01/19/25 10:03 Foot Right Anaerobic Culture - Preliminary Resulted 01/19/25 10:03 Aerobic Culture - Preliminary Proteus vulgaris Resulted 01/19/25 04:00 Voided Urine Urine Culture - Final Complete 01/18/25 14:02 Blood Blood Culture - Preliminary NO GROWTH AFTER 72 HOURS OF INCUBATION. Resulted Labs and/or images reviewed: Labs reviewed by me, Image(s) reviewed by me Problem List/Assessment/Plan Problem List/Assessment/Plan Assessment and plan S/P partial amputation of right foot digits Right foot osteomyelitis Right foot abscess Right foot cellulitis Right foot diabetic ulcer History of amputation of right foot 1st digit. History of peripheral artery disease status post stent placement Podiatry consult Dressing to be undressed by Podiatry on Friday Admit to Med surge Completed foot CT which showed amputation of right hallux with osteomyelitis of 1st metatarsal and 2nd to 5th digit osteomyelitis. Completed duplex of bilateral lower limbs which showed no significant stenosis. Continue aspirin and statin. Start clopidogrel after amputation Consulted wound care Ordered pancultures Currently on empiric IV antibiotic (Zosyn and vancomycin) AGATA hemodynamically mediated (VMN) on CKD IV fluids Monitor renal function Microcytic anemia Thrombocytosis Likely due to chronic disease Monitor Hypertensive heart failure with HFmrEF with moderate TR and mild MR (LVEF 45- 50%) - no exacerbation Uncontrolled type 2 DM Dyslipidemia Diabetic peripheral neuropathy On insulin sliding scale Continue home medication for blood pressure management. Echocardiogram on 12/2024 shows concentric LVH with left atrial enlargement, mild annular calcification, LVEF 45-50 % with global hypokinesis, moderate TR and mild MR. Target in-hospital blood glucose less than 180. On hydralazine and amlodipine Internal hemorrhoids Follow up with PCP on discharge Code status; full code Case discussed with Dr. Robison Plan discussed with: Patient, Other (RN) My Orders My Orders Orders - BECKIE QUIJANO Procedure Category Date Status Time Amlodipine Tablet PHA 01/21/25 In Process (Norvasc Tablet) 10:00 Date of Service: Jan 21, 2025 Billing Provider: AUDREY ROBISON MD Common Visit Codes: [id number] INP/OBS CARE(HIGH) BECKIE QUIJANO Jan 21, 2025 15:57 AUDREY ROBISON MD Jan 24, 2025 10:27
[2025-01-22] VITALS (8 sets, daily range): BP systolic 129–160; BP diastolic 67–93; PULSE 92–107; RESP 16–18; TEMP 97.5–98.2; O2SAT 94–97
[2025-01-22] MEDS: MELATONIN 5 MG TAB PO ONE (01:06)
[2025-01-22 05:45] LABS: Hematocrit 22.9 % (41.0-53.0); Hemoglobin 7.6 g/dL (13.5-17.5); Mean Corpuscular Hemoglobin 25.7 pg (28.0-32.0); Mean Corpuscular Volume 77.6 fL (80.0-100.0); Nucleated Red Blood Cells % 0.0 %
--- NOTE | 2025-01-22 10:59 | DVHPNRES ---
Progress Note Date Seen: Jan 22, 2025 Resident Creating Document: YELITZA BELTRAN RESDIENT Medical Necessity Reason Pt with a Central, PICC or Fol: No Subjective Review of Systems Shila Oliver is a 69-year-old male patient who presents to the ED with chief complaint of generalized weakness, insomnia, decreased appetite and nonhealing right foot wound. Patient went to the clinic the day of admission where he was referred to see department with suspicion of osteomyelitis. Patient was recently admitted in the hospital with AGATA on CKD with hyperkalemia and severe anemia requiring IV fluids, hyperkalemia protocol and blood transfusion, patient was evaluated by Podiatry previously and refused amputation at that time, he was discharged with p.o. antibiotics and home health services. Denies any other associated symptom including fever, chills, unintentional weight loss and shortness of breath. Objective vital signs Vital Sign Date Time Temp Pulse Resp B/P (MAP) Pulse Ox O2 Delivery O2 Flow Rate FiO2 01/22/25 09:29 138/73 01/22/25 09:00 97.5 95 17 96 97.5 01/22/25 08:00 Room Air* 0 21 Total Intake and Output 01/21/25 01/21/25 01/22/25 15:00 23:00 07:00 Intake Total 1490 ml 825 ml Output Total 900 ml Balance 1490 ml -75 ml medications Current Medications Medications Dose Ordered Sig/Jessica Route Start Time Stop Time Status Last Admin Dose Admin Acetaminophen 325 mg Q4HP PRN PO 01/18/25 11:30 01/20/25 14:28 325 MG Ondansetron HCl 4 mg Q4HP PRN IV 01/18/25 11:30 Morphine Sulfate 2 mg Q4HPRN PRN IV 01/18/25 11:30 01/22/25 05:32 2 MG Vancomycin HCl 0 ml @ 0 mls/hr PER PHARMACY IV 01/18/25 11:30 Piperacillin Sod/ Tazobactam Sod 100 ml @ 25 mls/hr Q8HR IV 01/18/25 14:00 01/22/25 05:32 25 MLS/HR Diagnostic Test (Pha) 1 strip Q6HR 01/18/25 12:00 01/22/25 05:34 1 STRIP Insulin Human Regular Q6HR SC 01/18/25 12:00 01/22/25 01:11 3 UNITS Dextrose 50 ml UD PRN IV 01/18/25 11:30 Ergocalciferol 50,000 unit Q7D PO 01/19/25 10:00 01/20/25 08:09 50,000 UNIT Aspirin 81 mg DAILY PO 01/19/25 10:00 01/22/25 09:28 81 MG Clopidogrel Bisulfate 75 mg DAILY PO 01/19/25 10:00 Hold Sodium Chloride 1,000 ml @ 60 mls/hr [id number] IV 01/18/25 23:00 01/22/25 09:29 60 MLS/HR Hydralazine HCl 10 mg Q8HR PO 01/19/25 06:00 01/22/25 05:31 10 MG Bisacodyl 5 mg DAILYP PRN PO 01/20/25 16:00 01/22/25 09:28 5 MG Polyethylene Glycol 17 gm DAILYPRN PRN PO 01/20/25 16:00 01/22/25 09:29 17 GM Hydralazine HCl 10 mg Q4HPRN PRN IV 01/20/25 17:00 01/22/25 06:41 10 MG Amlodipine Besylate 10 mg DAILY PO 01/22/25 10:00 01/22/25 09:29 10 MG Examination General: Lucid, afebrile, mucosae are dry, pale conjunctivae Cardiovascular: Normal S1 and S2. No murmurs, gallops or rubs Respiratory: Normal ventilation mechanics. Clear lung sounds on auscultation Abdomen: Soft, nontender, no organomegaly, normal bowel sounds MSK/skin: Mobilizes 4 limbs. Skin is dry. Amputated toes wrapped in bandage. Weak posterior tibial pulse palpated. Neurological: Oriented in 3 spheres. No motor no sensitive deficits. Pupils are isocoric and reactive laboratory and microbiology Laboratory Tests 01/22/25 05:18 01/21/25 05:32 Test 01/21/25 05:32 Range/Units Serum Glucose 118 #H 74-106 mg/dL Microbiology Date/Time Source Procedure Growth Status 01/19/25 10:03 Foot Right Gram Stain - Final Resulted 01/19/25 10:03 Foot Right Anaerobic Culture - Preliminary Resulted 01/19/25 10:03 Aerobic Culture - Preliminary Proteus vulgaris Resulted 01/19/25 04:00 Voided Urine Urine Culture - Final Complete 01/18/25 14:02 Blood Blood Culture - Preliminary NO GROWTH AFTER 72 HOURS OF INCUBATION. Resulted Labs and/or images reviewed: Labs reviewed by me, Image(s) reviewed by me Problem List/Assessment/Plan Problem List/Assessment/Plan S/P partial amputation of right foot digits Right foot osteomyelitis Right foot abscess Right foot cellulitis Right foot diabetic ulcer History of amputation of right foot 1st digit. History of peripheral artery disease status post stent placement Podiatry consult Dressing to be undressed by Podiatry on Friday Admit to [facility] Completed foot CT which showed amputation of right hallux with osteomyelitis of 1st metatarsal and 2nd to 5th digit osteomyelitis. Completed duplex of bilateral lower limbs which showed no significant stenosis. Continue aspirin and statin. Start clopidogrel after amputation Consulted wound care Ordered pancultures Currently on empiric IV antibiotic (Zosyn and vancomycin) AGATA hemodynamically mediated (VMN) on CKD IV fluids Monitor renal function Microcytic anemia Thrombocytosis Likely due to chronic disease Monitor Hypertensive heart disease with HFmrEF with moderate TR and mild MR (LVEF 45- 50%) - no exacerbation Dyslipidemia Diabetes type 2; not controlled Peripheral neuropathy On insulin sliding scale Continue home medication for blood pressure management. Echocardiogram on 12/2024 shows concentric LVH with left atrial enlargement, mild annular calcification, LVEF 45-50 % with global hypokinesis, moderate TR and mild MR. Target in-hospital blood glucose less than 180. On hydralazine and amlodipine Internal hemorrhoids Follow up with PCP on discharge On 01/22, the patient seen and examined at the bedside. Patient is feeling better, does not have any active complaint. Status post incision and drainage, podiatry is planning for 2nd possible incision and drainage. Code status full code Case discussed with Dr. Robison Plan discussed with: Patient, Other (RN) My Orders My Orders Orders - YELITZA BELTRAN RESDIENT Procedure Category Date Status Time Amlodipine Tablet PHA 01/22/25 In Process (Norvasc Tablet) 10:00 Date of Service: Jan 22, 2025 Billing Provider: AUDREY ROBISON MD Common Visit Codes: [id number] INP/OBS CARE(HIGH) YELITZA BELTRAN RESDIENT Jan 22, 2025 10:59 AUDREY ROBISON MD Jan 24, 2025 10:31
[2025-01-23] VITALS (8 sets, daily range): BP systolic 136–157; BP diastolic 64–94; PULSE 81–100; RESP 16–18; TEMP 98–98.6; O2SAT 92–100
[2025-01-23] MEDS: MELATONIN 5 MG TAB PO SCH
[2025-01-23] MEDS: MELATONIN 5 MG TAB PO ONE (01:38)
[2025-01-23 06:45] LABS: Hemoglobin 7.5 g/dL (13.5-17.5)
[2025-01-23 06:46] LABS: Hematocrit 22.6 % (41.0-53.0); Mean Corpuscular Hemoglobin 26.0 pg (28.0-32.0); Mean Corpuscular Volume 78.0 fL (80.0-100.0); Nucleated Red Blood Cells % 0.0 %
[2025-01-23 06:58] LABS: Alanine Aminotransferase 12 U/L (7-40)
[2025-01-23 06:59] LABS: Anion Gap 10 (5-15); BUN/Creatinine Ratio 14.7 (10.0-20.0); Bilirubin, Total 0.5 mg/dL (0.2-1.0); Carbon Dioxide 21 mmol/L (20-31); Chloride 103 mmol/L (98-107); Glucose 106 mg/dL (74-106); Potassium 4.9 mmol/L (3.5-5.1)
[2025-01-23 07:05] LABS: Albumin 2.6 g/dL (3.2-4.8); Alkaline Phosphatase 236 U/L (46-116); Blood Urea Nitrogen 23 mg/dL (9-23); Calcium 7.7 mg/dL (8.7-10.4); Sodium 134 mmol/L (136-145); Total Protein 5.0 g/dL (5.7-8.2)
[2025-01-23] MEDS: VANCOMYCIN 500mg/100mL 100 ML IV ONE (12:00)
--- NOTE | 2025-01-23 15:46 | DVHPNRES ---
Progress Note Date Seen: Jan 23, 2025 Resident Creating Document: BECKIE QUIJANO Medical Necessity Reason Pt with a Central, PICC or Fol: No Subjective Review of Systems Patient seen at bedside. No new complaints.Wound culture grew Proteus and Enterococcus species sensitive to vancomycin and Zosyn. Objective vital signs Vital Sign Date Time Temp Pulse Resp B/P (MAP) Pulse Ox O2 Delivery O2 Flow Rate FiO2 01/23/25 13:00 98.0 81 16 157/94 (115) 98 98.0 01/22/25 20:00 Room Air* 0 21 Total Intake and Output 01/22/25 01/22/25 01/23/25 15:00 23:00 07:00 Intake Total 1000 ml 100 ml Balance 1000 ml 100 ml medications Current Medications Medications Dose Ordered Sig/Jessica Route Start Time Stop Time Status Last Admin Dose Admin Acetaminophen 325 mg Q4HP PRN PO 01/18/25 11:30 01/23/25 03:00 325 MG Ondansetron HCl 4 mg Q4HP PRN IV 01/18/25 11:30 Morphine Sulfate 2 mg Q4HPRN PRN IV 01/18/25 11:30 01/22/25 05:32 2 MG Vancomycin HCl 0 ml @ 0 mls/hr PER PHARMACY IV 01/18/25 11:30 Piperacillin Sod/ Tazobactam Sod 100 ml @ 25 mls/hr Q8HR IV 01/18/25 14:00 01/23/25 05:35 25 MLS/HR Diagnostic Test (Pha) 1 strip Q6HR 01/18/25 12:00 01/23/25 12:19 1 STRIP Insulin Human Regular Q6HR SC 01/18/25 12:00 01/23/25 12:00 3 UNITS Dextrose 50 ml UD PRN IV 01/18/25 11:30 Ergocalciferol 50,000 unit Q7D PO 01/19/25 10:00 01/20/25 08:09 50,000 UNIT Aspirin 81 mg DAILY PO 01/19/25 10:00 01/23/25 10:00 81 MG Clopidogrel Bisulfate 75 mg DAILY PO 01/19/25 10:00 Hold Sodium Chloride 1,000 ml @ 60 mls/hr [id number] IV 01/18/25 23:00 01/23/25 03:01 60 MLS/HR Hydralazine HCl 10 mg Q8HR PO 01/19/25 06:00 01/23/25 05:35 10 MG Bisacodyl 5 mg DAILYP PRN PO 01/20/25 16:00 01/22/25 09:28 5 MG Polyethylene Glycol 17 gm DAILYPRN PRN PO 01/20/25 16:00 01/22/25 09:29 17 GM Hydralazine HCl 10 mg Q4HPRN PRN IV 01/20/25 17:00 01/22/25 06:41 10 MG Amlodipine Besylate 10 mg DAILY PO 01/22/25 10:00 01/23/25 10:00 10 MG Melatonin 5 mg HS PO 01/23/25 22:00 Examination Patient lying in bed, in no acute distress General: Lucid, afebrile, mucosae are dry, pale conjunctivae Cardiovascular: Normal S1 and S2. No murmurs, gallops or rubs Respiratory: Normal ventilation mechanics. Clear lung sounds on auscultation Abdomen: Soft, nontender, no organomegaly, normal bowel sounds MSK/skin: Mobilizes 4 limbs. Skin is dry. Amputated toes wrapped in bandage. Weak posterior tibial pulse palpated. Neurological: Oriented in 3 spheres. No motor no sensitive deficits. Pupils are isocoric and reactive laboratory and microbiology Laboratory Tests 01/23/25 05:55 Test 01/23/25 05:55 Range/Units Serum Glucose 106 74-106 mg/dL Microbiology Date/Time Source Procedure Growth Status 01/19/25 10:03 Foot Right Gram Stain - Final Resulted 01/19/25 10:03 Foot Right Anaerobic Culture - Preliminary Resulted 01/19/25 10:03 Aerobic Culture - Final Proteus vulgaris Enterococcus faecalis Resulted 01/19/25 04:00 Voided Urine Urine Culture - Final Complete 01/18/25 14:02 Blood Blood Culture - Final NO GROWTH AFTER 5 DAYS OF INCUBATION. Complete Problem List/Assessment/Plan Problem List/Assessment/Plan Assessment and plan S/P partial amputation of right foot digits Right foot osteomyelitis Right foot abscess Right foot cellulitis Right foot diabetic ulcer History of amputation of right foot 1st digit. History of peripheral artery disease status post stent placement Podiatry consult Dressing to be undressed by Podiatry Admit to [facility] Completed foot CT which showed amputation of right hallux with osteomyelitis of 1st metatarsal and 2nd to 5th digit osteomyelitis. Completed duplex of bilateral lower limbs which showed no significant stenosis. Continue aspirin and statin. Start clopidogrel after amputation Consulted wound care Ordered pancultures Wound culture grew Proteus and Enterococcus Currently on IV antibiotic (Zosyn and vancomycin) AGATA hemodynamically mediated (VMN) on CKD IV fluids Monitor renal function Microcytic anemia Thrombocytosis Likely due to chronic disease Monitor Hypertensive heart disease with HFmrEF with moderate TR and mild MR (LVEF 45- 50%) - no exacerbation Dyslipidemia Diabetes type 2, uncontrolled Peripheral neuropathy On insulin sliding scale Continue home medication for blood pressure management. Echocardiogram on 12/2024 shows concentric LVH with left atrial enlargement, mild annular calcification, LVEF 45-50 % with global hypokinesis, moderate TR and mild MR. Target in-hospital blood glucose less than 180. On hydralazine and amlodipine Internal hemorrhoids Follow up with PCP on discharge Code status; full code Case discussed with Dr. Robison Plan discussed with: Patient My Orders My Orders Orders - BECKIE QUIJANO Procedure Category Date Status Time Complete Blood Count LAB 01/24/25 Verified 04:00 Comprehensive LAB 01/24/25 Verified Metabolic Panel 04:00 Date of Service: Jan 23, 2025 Billing Provider: AUDREY ROBISON MD Common Visit Codes: [id number] INP/OBS CARE(HIGH) BECKIE QUIJANO Jan 23, 2025 15:46 AUDREY ROBISON MD Jan 24, 2025 10:36
[2025-01-23] MEDS: ONDANSETRON HCL 4 MG/2 ML VIAL IV PRN (22:05)
[2025-01-24] VITALS (8 sets, daily range): BP systolic 136–162; BP diastolic 65–89; PULSE 84–99; RESP 16–20; TEMP 97.6–98.1; O2SAT 96–100
[2025-01-24 06:33] LABS: Hematocrit 24.3 % (41.0-53.0); Hemoglobin 8.0 g/dL (13.5-17.5); Mean Corpuscular Hemoglobin 25.7 pg (28.0-32.0); Mean Corpuscular Volume 77.9 fL (80.0-100.0); Nucleated Red Blood Cells % 0.1 %
[2025-01-24 06:53] LABS: Alanine Aminotransferase 13 U/L (7-40); Anion Gap 10 (5-15); BUN/Creatinine Ratio 11.9 (10.0-20.0); Blood Urea Nitrogen 18 mg/dL (9-23); Carbon Dioxide 21 mmol/L (20-31); Chloride 104 mmol/L (98-107); Glucose 91 mg/dL (74-106); Potassium 4.2 mmol/L (3.5-5.1)
[2025-01-24 06:54] LABS: Bilirubin, Total 0.5 mg/dL (0.2-1.0)
[2025-01-24 07:08] LABS: Albumin 2.9 g/dL (3.2-4.8); Alkaline Phosphatase 212 U/L (46-116); Calcium 7.9 mg/dL (8.7-10.4); Sodium 135 mmol/L (136-145); Total Protein 5.7 g/dL (5.7-8.2)
[2025-01-24] MEDS: VANCOMYCIN 500mg/100mL 100 ML IV ONE (10:00)
[2025-01-24] MEDS: CLOPIDOGREL BISULFATE 75 MG TAB PO SCH (10:23)
--- NOTE | 2025-01-24 13:45 | DVHPNRES ---
Progress Note Date Seen: Jan 24, 2025 Resident Creating Document: BECKIE QUIJANO Medical Necessity Reason Pt with a Central, PICC or Fol: No Subjective Review of Systems Patient seen at bedside. No new complaints. Wound culture grew Proteus and Enterococcus. Vascular surgery consult pending. Shila Oliver is a 69-year-old male patient who presents to the ED with chief complaint of generalized weakness, insomnia, decreased appetite and nonhealing right foot wound. Patient went to the clinic the day of admission where he was referred to see department with suspicion of osteomyelitis. Patient was recently admitted in the hospital with AGATA on CKD with hyperkalemia and severe anemia requiring IV fluids, hyperkalemia protocol and blood transfusion, patient was evaluated by Podiatry previously and refused amputation at that time, he was discharged with p.o. antibiotics and home health services. Denies any other associated symptom including fever, chills, unintentional weight loss and shortness of breath. Past medical history: Hypertension, diabetes, dyslipidemia, peripheral artery disease status post stent placement in two opportunities (last one one month ago) patient is not taking aspirin nor Plavix, diabetic foot status post amputation three months ago, CKD, anemia with requirement of transfusions, hemorrhoids, diabetic peripheral neuropathy, HFmrEF with moderate TR and mild MR (echo on 12/2024 shows concentric LVH with left atrial enlargement, mild annular calcification, LVEF 45-50 % with global hypokinesis, moderate TR and mild MR) Surgical history: Peripheral stent placement x2 (one two months ago one one month ago), amputation of right hallux three months ago Family history: Denies Social history: Lives in [place] with (next of kin). Denies current tobacco, alcohol and other drug abuse Allergies: Denies Home medication: Metformin, statins and blood pressure medication (he was supposed to take aspirin and clopidogrel, but he stopped taking) Objective vital signs Vital Sign Date Time Temp Pulse Resp B/P (MAP) Pulse Ox O2 Delivery O2 Flow Rate FiO2 01/24/25 10:23 136/65 01/24/25 09:00 98.1 87 16 99 98.1 01/24/25 08:00 Room Air* 0 21 Total Intake and Output 01/23/25 01/23/25 01/24/25 15:00 23:00 07:00 Intake Total 100 ml 900 ml 400 ml Balance 100 ml 900 ml 400 ml medications Current Medications Medications Dose Ordered Sig/Jessica Route Start Time Stop Time Status Last Admin Dose Admin Acetaminophen 325 mg Q4HP PRN PO 01/18/25 11:30 01/24/25 05:13 325 MG Ondansetron HCl 4 mg Q4HP PRN IV 01/18/25 11:30 01/23/25 22:05 4 MG Morphine Sulfate 2 mg Q4HPRN PRN IV 01/18/25 11:30 01/22/25 05:32 2 MG Vancomycin HCl 0 ml @ 0 mls/hr PER PHARMACY IV 01/18/25 11:30 Piperacillin Sod/ Tazobactam Sod 100 ml @ 25 mls/hr Q8HR IV 01/18/25 14:00 01/24/25 05:12 25 MLS/HR Diagnostic Test (Pha) 1 strip Q6HR 01/18/25 12:00 01/24/25 12:00 1 STRIP Insulin Human Regular Q6HR SC 01/18/25 12:00 01/23/25 18:00 4 UNITS Dextrose 50 ml UD PRN IV 01/18/25 11:30 Ergocalciferol 50,000 unit Q7D PO 01/19/25 10:00 01/20/25 08:09 50,000 UNIT Aspirin 81 mg DAILY PO 01/19/25 10:00 01/24/25 10:23 81 MG Clopidogrel Bisulfate 75 mg DAILY PO 01/19/25 10:00 01/24/25 10:23 75 MG Sodium Chloride 1,000 ml @ 60 mls/hr [id number] IV 01/18/25 23:00 01/23/25 19:40 60 MLS/HR Hydralazine HCl 10 mg Q8HR PO 01/19/25 06:00 01/24/25 05:12 10 MG Bisacodyl 5 mg DAILYP PRN PO 01/20/25 16:00 01/22/25 09:28 5 MG Polyethylene Glycol 17 gm DAILYPRN PRN PO 01/20/25 16:00 01/22/25 09:29 17 GM Hydralazine HCl 10 mg Q4HPRN PRN IV 01/20/25 17:00 01/22/25 06:41 10 MG Amlodipine Besylate 10 mg DAILY PO 01/22/25 10:00 01/24/25 10:23 10 MG Melatonin 5 mg HS PO 01/23/25 22:00 01/23/25 00:00 5 MG Examination Patient lying in bed, in no acute distress General: Lucid, afebrile, mucosae are dry, pale conjunctivae Cardiovascular: Normal S1 and S2. No murmurs, gallops or rubs Respiratory: Normal ventilation mechanics. Clear lung sounds on auscultation Abdomen: Soft, nontender, no organomegaly, normal bowel sounds MSK/skin: Mobilizes 4 limbs. Skin is dry. Amputated toes wrapped in bandage. Weak posterior tibial pulse palpated. Neurological: Oriented in 3 spheres. No motor no sensitive deficits. Pupils are isocoric and reactive laboratory and microbiology Laboratory Tests 01/24/25 05:44 Test 01/24/25 05:44 Range/Units Serum Glucose 91 74-106 mg/dL Microbiology Date/Time Source Procedure Growth Status 01/19/25 10:03 Foot Right Gram Stain - Final Resulted 01/19/25 10:03 Foot Right Anaerobic Culture - Preliminary Resulted 01/19/25 10:03 Aerobic Culture - Final Proteus vulgaris Enterococcus faecalis Resulted 01/19/25 04:00 Voided Urine Urine Culture - Final Complete 01/18/25 14:02 Blood Blood Culture - Final NO GROWTH AFTER 5 DAYS OF INCUBATION. Complete Problem List/Assessment/Plan Problem List/Assessment/Plan Assessment and plan S/P partial amputation of right foot digits Right foot osteomyelitis Right foot abscess Right foot cellulitis Right foot diabetic ulcer History of amputation of right foot 1st digit. History of peripheral artery disease status post stent placement Podiatry consult Dressing to be undressed by Podiatry Admit to [facility] [place] Completed foot CT which showed amputation of right hallux with osteomyelitis of 1st metatarsal and 2nd to 5th digit osteomyelitis. Completed duplex of bilateral lower limbs which showed no significant stenosis. Continue aspirin and statin. 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 Echocardiogram on 12/2024 shows concentric LVH with left atrial enlargement, mild annular calcification, LVEF 45-50 % with global hypokinesis, moderate TR and mild MR. Target in-hospital blood glucose less than 180. On hydralazine and amlodipine Internal hemorrhoids Follow up with PCP on discharge Code status full code Case discussed with Dr. Jordan Plan discussed with: Patient, Spouse My Orders My Orders Orders - BECKIE QUIJANO Procedure Category Date Status Time * Surgical Consult CONS 01/24/25 Transmitted Dietary Evaluation Review Comments: Nutrition Recommendation: 1) Kalia 1 pk BID 2) CCHO 60gm + cardiac diet 3) Monitor PO intake, lab values, weight trend, and I/O Expected Outcomes/Goals: Wound to improve FU 3-5 days Date of Service: Jan 24, 2025 Billing Provider: CLYDE HAYNES MD Common Visit Codes: [id number] INP/OBS CARE(HIGH) BECKIE QUIJANO Jan 24, 2025 13:45
[2025-01-25] VITALS (7 sets, daily range): BP systolic 138–167; BP diastolic 72–93; PULSE 83–96; RESP 17–18; TEMP 97.7–98.2; O2SAT 96–99
[2025-01-25 06:44] LABS: Hemoglobin 8.8 g/dL (13.5-17.5); Nucleated Red Blood Cells % 0.0 %
[2025-01-25 06:46] LABS: Hematocrit 27.1 % (41.0-53.0); Mean Corpuscular Hemoglobin 25.4 pg (28.0-32.0); Mean Corpuscular Volume 78.1 fL (80.0-100.0)
--- NOTE | 2025-01-25 06:55 | DVHCONRES ---
Date Seen: Jan 25, 2025 Resident Creating Document: NEHEMIAS BRIGHT Jr., MD Referring Physician podiatry Reason for Consultation peripheral vascular disease History of Present Illness 9-year-old male patient who presents to the ED with chief complaint of generalized weakness, insomnia, decreased appetite and nonhealing right foot wound. Patient went to the clinic the day of admission where he was referred to see department with suspicion of osteomyelitis. Patient was recently admitted in the hospital with AGATA on CKD with hyperkalemia and severe anemia requiring IV fluids, hyperkalemia protocol and blood transfusion, patient was evaluated by Podiatry previously and refused amputation at that time, he was discharged with p.o. antibiotics and home health services. Denies any other associated symptom including fever, chills, unintentional weight loss and shortness of breath. Past Medical History Past Surgical History multiple toe amputation Family History: Diabetes mellitus G8 FATHER Hypertension G8 MOTHER Social History former smoker Allergies: Coded Allergies: NO KNOWN ALLERGIES (Unverified , 12/07/24) Home Meds Active Scripts Amlodipine Besylate (NORVASC TABLET) 5 Mg Tb, 10 MG PO DAILY for 30 Days, #60 TAB 3 Refills Prov:GILBERT DAILY MD 12/08/24 Enalapril Maleate (Enalapril Maleate) 10 Mg Tab, 20 MG PO DAILY for 30 Days, #60 TAB 2 Refills Prov:GILBERT DAILY MD 12/08/24 Furosemide (Lasix) 20 Mg Tb, 1 TAB PO BID, #90 TAB 1 Refill Prov:GILBERT DAILY MD 12/08/24 Amoxicillin & Pot Clavulanate (AUGMENTIN TABLET) 875 Mg Tb, 875 MG PO BID for 14 Days, #28 TAB Prov:GILBERT DAILY MD 12/08/24 Vital Signs Vital Signs Date Time Temp Pulse Resp B/P (MAP) Pulse Ox O2 Delivery O2 Flow Rate FiO2 01/25/25 05:02 152/72 01/25/25 05:00 97.8 87 17 99 97.8 01/24/25 20:00 Room Air* 0 21 Labs/Diagnostic Data Labs Test 01/25/25 05:23 01/25/25 05:20 01/24/25 05:44 01/19/25 04:00 Range/Units POC Glucose 117 H 70-106 mg/dl Eosinophils (%) (Auto) 1.4 0.0-7.0 % Eosinophils # (Auto) 0.1 0-0.8 10 ^3/uL Basophils # (Auto) 0.1 0-0.2 10 ^3/uL Nucleated Red Blood Cells 0.1 % Urine Color Light-yellow Yellow Urine Clarity Clear Clear Urine pH 6.5 5.0-9.0 Urine Specific [place] 1.017 1.001-1.035 Urine Protein 3+ H Negative Urine Ketones Negative Negative Urine Blood Trace H Negative /uL Urine Nitrite Negative Negative Urine Bilirubin Negative Negative Urine Urobilinogen Normal Negative mg/dL Urine Leukocyte Esterase Negative Negative /uL Urine RBC None seen 0 - 3 /hpf Urine Microscopic WBC 1 0-3 /HPF Urine Squamous Epithelial Cells Few <5 /hpf Urine Bacteria None seen None Seen /hpf Urine Glucose Trace Normal mg/dL Urine Opiates Screen Neg NEGATIVE Urine Fentanyl Screen Neg NEGATIVE Urine Barbiturates Screen Neg NEGATIVE Urine Phencyclidine Screen Neg NEGATIVE Urine Amphetamines Screen Neg NEGATIVE Urine Benzodiazepines Screen Neg NEGATIVE Urine Cocaine Screen Neg NEGATIVE Urine Cannabinoids Screen Neg NEGATIVE Test 01/18/25 14:02 01/18/25 13:51 01/18/25 09:41 Range/Units Lactic Acid Level 1.5 0.4-2.0 mmol/L Iron Level 19 L 65-175 ug/dL Total Iron Binding Capacity 196 L 250-425 ug/dL Percent Iron Saturation 9.7 L 20-55 % Haptoglobin 408 H 32-363 mg/dL Reticulocyte Count (auto) 1.96 H 0.5-1.5 % Prothrombin Time 12.4 H 9.3-11.8 sec Prothrombin Time INR 1.19 H 0.9-1.15 Activated Partial Thromboplast Time 31.3 24.5-34.5 SEC Hemoglobin A1c 9.5 H <5.7 % A1C Phosphorus Level 4.0 2.4-5.1 mg/dL Magnesium Level 2.1 1.6-2.6 mg/dL Ferritin 138.0 22-322 ng/mL Triglycerides Level 133 < 150 mg/dL Cholesterol Level 125 < 200 mg/dL LDL Cholesterol 68 < 100 mg/dL HDL Cholesterol 30 L 40-59 mg/dL Vitamin B12 Level 897 211-911 pg/mL Vitamin D 25-Hydroxy 26.7 L 30.0-100 ng/mL Folic Acid 10.75 >5.38 ng/mL Thyroid Stimulating Hormone (TSH) 5.85 H 0.55-4.78 uIU/mL Microbiology Date/Time Source Procedure Growth Status 01/19/25 10:03 Foot Right Gram Stain - Final Resulted 01/19/25 10:03 Foot Right Anaerobic Culture - Preliminary Resulted 01/19/25 10:03 Aerobic Culture - Final Proteus vulgaris Enterococcus faecalis Resulted 01/19/25 04:00 Voided Urine Urine Culture - Final Complete 01/18/25 14:02 Blood Blood Culture - Final NO GROWTH AFTER 5 DAYS OF INCUBATION. Complete BILATERAL Lower Extremity Arterial Duplex Date: 01/18/2025 09:52 AM Clinical History: RLE necrotic lesions Comparison: US BILAT LOW EXT ART DUPLEX on DOS: 12/07/24 Technique: Duplex Doppler evaluation including color Doppler and spectral/pulsed waveform analysis of the lower extremity arteries was performed. Finding: RIGHT: Peak systolic velocities are as follows: IGNITION SPECIALIST 120 cm/s triphasic waveform Deep femoral 63 cm/s triphasic waveform SFA proximal 94 cm/s triphasic waveform SFA mid-portion 115 cm/s triphasic waveform SFA distal 84 cm/s triphasic waveform Popliteal Proximal popliteal artery 92cm/s triphasic waveform Popliteal artery distally 118 cm/sec, triphasic waveform Posterior tibial N/V ANTERIOR TIBIAL ARTERY 47 CM/SEC MONOPHASIC WAVEFORM Dorsalis pedis 24 cm/s MONOPHASIC WAVEFORM The waveforms are MONOPHASIC WAVEFORM IN THE ANTERIOR TIBIAL ARTERY AND DORSALIS PEDIS. TRIPHASIC WAVEFORMS OTHERWISE THROUGHOUT. LEFT: Peak systolic velocities are as follows: IGNITION SPECIALIST 87 cm/s triphasic waveform Deep femoral 105 cm/s triphasic waveform SFA proximal 23 cm/s biphasic waveform SFA mid-portion 33 cm/s biphasic waveform SFA distal 29 cm/s biphasic waveform Popliteal Proximal popliteal artery: 30 cm/s monophasic waveform Distal popliteal artery: 25 cm/sec monophasic waveform Posterior tibial 6 cm/s: Monophasic waveform Anterior tibial 12 cm/s: Monophasic waveform Dorsalis pedis 8 cm/s: Monophasic waveform The waveforms are biphasic and triphasic waveform proximal popliteal artery. Monophasic waveform distal popliteal artery. REFERENCE VALUES, [facility] ([facility]) vascular Imaging Lab Criteria: Peak systolic velocity ranges (in cm/sec) are as follows: <150 cm/s - <20 % stenosis 150-200 cm/s - 20-49% stenosis 200-300 cm/s - 50-75% stenosis >300 cm/s -> 75% stenosis IMPRESSION: 1. There is no evidence for peripheral vascular insufficiency in the right lower extremity proximal to the popliteal artery with monophasic waveform distal to the popliteal artery. 2. There is no evidence for peripheral vascular insufficiency in the left lower extremity proximal to the popliteal artery with monophasic waveform noted distal to the popliteal artery.. 3. No significant focal stenosis is identified. Assessment BILATERAL Lower Extremity Arterial Duplex Date: 01/18/2025 09:52 AM Clinical History: RLE necrotic lesions Comparison: US BILAT LOW EXT ART DUPLEX on DOS: 12/07/24 Technique: Duplex Doppler evaluation including color Doppler and spectral/pulsed waveform analysis of the lower extremity arteries was performed. Finding: RIGHT: Peak systolic velocities are as follows: IGNITION SPECIALIST 120 cm/s triphasic waveform Deep femoral 63 cm/s triphasic waveform SFA proximal 94 cm/s triphasic waveform s/p right toe amputation recent sfa stenting await cta Plan discussed with: Patient NEHEMIAS BRIGHT Jr., MD Jan 25, 2025 06:55
[2025-01-25 07:04] LABS: Anion Gap 10 (5-15); BUN/Creatinine Ratio 10.6 (10.0-20.0); Blood Urea Nitrogen 16 mg/dL (9-23); Carbon Dioxide 21 mmol/L (20-31); Chloride 105 mmol/L (98-107); Potassium 4.3 mmol/L (3.5-5.1); Sodium 136 mmol/L (136-145); Total Protein 5.8 g/dL (5.7-8.2)
[2025-01-25 07:05] LABS: Bilirubin, Total 0.4 mg/dL (0.2-1.0)
[2025-01-25 07:17] LABS: Alanine Aminotransferase < 9 U/L (7-40); Albumin 2.8 g/dL (3.2-4.8); Alkaline Phosphatase 203 U/L (46-116); Calcium 7.9 mg/dL (8.7-10.4); Glucose 114 mg/dL (74-106)
[2025-01-25] MEDS: VANCOMYCIN 500mg/100mL 100 ML IV ONE (10:00)
--- NOTE | 2025-01-25 12:29 | DVHCONRES ---
Date Seen: Jan 25, 2025 Resident Creating Document: CARIDAD ANTON RESIDENT Referring Physician Mark Anthony Holt Reason for Consultation Nephrology Clearance for IV contrast History of Present Illness Shila Oliver is a 69-year-old male patient who presents to the ED with chief complaint of generalized weakness, insomnia, decreased appetite and nonhealing right foot wound. Patient went to the clinic the day of admission where he was referred to see department with suspicion of osteomyelitis. Patient was recently admitted in the hospital with AGATA on CKD with hyperkalemia and severe anemia requiring IV fluids, hyperkalemia protocol and blood transfusion, patient was evaluated by Podiatry previously and refused amputation at that time, he was discharged with p.o. antibiotics and home health services. Denies any other associated symptom including fever, chills, unintentional weight loss and shortness of breath. 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 Denies current tobacco, alcohol and other drug abuse Allergies: Denies Home medication: Metformin, statins and blood pressure medication (he was supposed to take aspirin and clopidogrel, but he stopped taking) Patient seen and examined at the bedside. Patient is currently reporting no new complaints at this time and improved since admission. Nephrology was consulted for clearance for the CT angiogram. Family History: Diabetes mellitus G8 FATHER Hypertension G8 MOTHER Allergies: Coded Allergies: NO KNOWN ALLERGIES (Unverified , 12/07/24) Home Meds Active Scripts Amlodipine Besylate (NORVASC TABLET) 5 Mg Tb, 10 MG PO DAILY for 30 Days, #60 TAB 3 Refills Prov:GILBERT DAILY MD 12/08/24 Enalapril Maleate (Enalapril Maleate) 10 Mg Tab, 20 MG PO DAILY for 30 Days, #60 TAB 2 Refills Prov:GILBERT DAILY MD 12/08/24 Furosemide (Lasix) 20 Mg Tb, 1 TAB PO BID, #90 TAB 1 Refill Prov:GILBERT DAILY MD 12/08/24 Amoxicillin & Pot Clavulanate (AUGMENTIN TABLET) 875 Mg Tb, 875 MG PO BID for 14 Days, #28 TAB Prov:GILBERT DAILY MD 12/08/24 Vital Signs Vital Signs Date Time Temp Pulse Resp B/P (MAP) Pulse Ox O2 Delivery O2 Flow Rate FiO2 01/25/25 09:34 150/73 01/25/25 09:23 92 17 01/25/25 05:00 97.8 99 97.8 01/24/25 20:00 Room Air* 0 21 Physical Exam Patient lying in bed, in no acute distress General: Lucid, afebrile, mucosae are dry, pale conjunctivae Cardiovascular: Normal S1 and S2. No murmurs, gallops or rubs Respiratory: Normal ventilation mechanics. Clear lung sounds on auscultation Abdomen: Soft, nontender, no organomegaly, normal bowel sounds MSK/skin: Mobilizes 4 limbs. Skin is dry and warm. Necrotic toes in right foot, purulent discharge from right hallux amputation. Neurological: Oriented in 3 spheres. No motor no sensitive deficits. Pupils are isocoric and reactive plan Labs/Diagnostic Data Labs Test 01/25/25 05:23 01/25/25 05:20 01/19/25 04:00 01/18/25 14:02 Range/Units White Blood Count 9.3 4.4-10.8 10^3/uL Red Blood Count 3.47 L 4.5-5.90 10^6/uL Hemoglobin 8.8 L 13.5-17.5 g/dL Hematocrit 27.1 #L 41.0-53.0 % Mean Corpuscular Volume 78.1 L 80.0-100.0 fL Mean Corpuscular Hemoglobin 25.4 L 28.0-32.0 pg Mean Corpuscular Hemoglobin Concent 32.5 32.0-36.0 g/dL Red Cell Distribution Width 16.0 H 11.8-14.3 % Platelet Count 650 H 140-450 10^3/uL Mean Platelet Volume 7.6 6.9-10.8 fL Neutrophils (%) (Auto) 84.4 H 37.0-80.0 % Lymphocytes (%) (Auto) 4.6 L 10.0-50.0 % Monocytes (%) (Auto) 8.5 0.0-12.0 % Eosinophils (%) (Auto) 1.5 0.0-7.0 % Basophils (%) (Auto) 1.0 0.0-2.0 % Neutrophils # (Auto) 7.8 1.6-8.6 10 ^3/uL Lymphocytes # (Auto) 0.4 0.4-5.4 10 ^3/uL Monocytes # (Auto) 0.8 0-1.3 10 ^3/uL Eosinophils # (Auto) 0.1 0-0.8 10 ^3/uL Basophils # (Auto) 0.1 0-0.2 10 ^3/uL Nucleated Red Blood Cells 0.0 % Sodium Level 136 136-145 mmol/L Potassium Level 4.3 3.5-5.1 mmol/L Chloride Level 105 98-107 mmol/L Carbon Dioxide Level 21 20-31 mmol/L Anion Gap 10 5-15 Blood Urea Nitrogen 16 9-23 mg/dL Creatinine 1.51 H 0.700-1.30 mg/dL Glomerular Filtration Rate Calc 50 >90 mL/min BUN/Creatinine Ratio 10.6 10.0-20.0 Serum Glucose 114 H 74-106 mg/dL Calcium Level 7.9 L 8.7-10.4 mg/dL Total Bilirubin 0.4 0.2-1.0 mg/dL Aspartate Amino Transferase (AST) 11 L 13-40 U/L Alanine Aminotransferase (ALT) < 9 7-40 U/L Alkaline Phosphatase 203 H 46-116 U/L Total Protein 5.8 5.7-8.2 g/dL Albumin 2.8 L 3.2-4.8 g/dL Random Vancomycin Level 16.2 H 5-10 ug/mL POC Glucose 117 H 70-106 mg/dl Urine Color Light-yellow Yellow Urine Clarity Clear Clear Urine pH 6.5 5.0-9.0 Urine Specific [place] 1.017 1.001-1.035 Urine Protein 3+ H Negative Urine Ketones Negative Negative Urine Blood Trace H Negative /uL Urine Nitrite Negative Negative Urine Bilirubin Negative Negative Urine Urobilinogen Normal Negative mg/dL Urine Leukocyte Esterase Negative Negative /uL Urine RBC None seen 0 - 3 /hpf Urine Microscopic WBC 1 0-3 /HPF Urine Squamous Epithelial Cells Few <5 /hpf Urine Bacteria None seen None Seen /hpf Urine Glucose Trace Normal mg/dL Urine Opiates Screen Neg NEGATIVE Urine Fentanyl Screen Neg NEGATIVE Urine Barbiturates Screen Neg NEGATIVE Urine Phencyclidine Screen Neg NEGATIVE Urine Amphetamines Screen Neg NEGATIVE Urine Benzodiazepines Screen Neg NEGATIVE Urine Cocaine Screen Neg NEGATIVE Urine Cannabinoids Screen Neg NEGATIVE Lactic Acid Level 1.5 0.4-2.0 mmol/L Iron Level 19 L 65-175 ug/dL Total Iron Binding Capacity 196 L 250-425 ug/dL Percent Iron Saturation 9.7 L 20-55 % Test 01/18/25 13:51 01/18/25 09:41 Range/Units Haptoglobin 408 H 32-363 mg/dL Reticulocyte Count (auto) 1.96 H 0.5-1.5 % Prothrombin Time 12.4 H 9.3-11.8 sec Prothrombin Time INR 1.19 H 0.9-1.15 Activated Partial Thromboplast Time 31.3 24.5-34.5 SEC Hemoglobin A1c 9.5 H <5.7 % A1C Phosphorus Level 4.0 2.4-5.1 mg/dL Magnesium Level 2.1 1.6-2.6 mg/dL Ferritin 138.0 22-322 ng/mL Triglycerides Level 133 < 150 mg/dL Cholesterol Level 125 < 200 mg/dL LDL Cholesterol 68 < 100 mg/dL HDL Cholesterol 30 L 40-59 mg/dL Vitamin B12 Level 897 211-911 pg/mL Vitamin D 25-Hydroxy 26.7 L 30.0-100 ng/mL Folic Acid 10.75 >5.38 ng/mL Thyroid Stimulating Hormone (TSH) 5.85 H 0.55-4.78 uIU/mL Microbiology Date/Time Source Procedure Growth Status 01/19/25 10:03 Foot Right Gram Stain - Final Resulted 01/19/25 10:03 Foot Right Anaerobic Culture - Preliminary Resulted 01/19/25 10:03 Aerobic Culture - Final Proteus vulgaris Enterococcus faecalis Resulted 01/19/25 04:00 Voided Urine Urine Culture - Final Complete 01/18/25 14:02 Blood Blood Culture - Final NO GROWTH AFTER 5 DAYS OF INCUBATION. Complete Assessment AGATA likely hemodynamic mediated on CKD stage 3 Right foot osteomyelitis /Abscess/ diabetic foot History of PAD status post stent HFmrEF Nephrotic syndrome likely diabetic kidney disease Plan/recommendations: Daily monitor kidney functions and urinary output Daily monitor lab Avoid nephrotoxic agent Patient is high-risk for developing contrast induced AAGTA due to underlying diabetic nephropathy which brought him 50% risk of end up with dialysis, recommended MRA If wants to proceed with CT angiogram then our recommendation to start IVF with NS 1 mL/kg before 6 hours of contrast followed by 80 mg Lasix IV push immediately after the contrast and 1 mL/kg NS for 18 hours after IV contrast. Closely monitor Urine studies Assess fluid status daily Outpatient follow up with the Nephrology Rest of management as per primary team Patient seen and examined by myself today on rounds with the medicine resident, I agree with his assessment and plan Discussed my plan with Dr. Jordan Case discussed with the Dr. Degroot Plan discussed with: Patient, Other (rn) CARIDAD ANTON RESIDENT Jan 25, 2025 12:29 APURVA DEGROOT MD Jan 25, 2025 14:39
[2025-01-25 13:34] LABS: Magnesium 1.9 mg/dL (1.6-2.6)
[2025-01-25 18:02] LABS: Urine Amorphous Crystal FEW /hpf (None Seen); Urine Protein, UAD 2+ (Negative)
[2025-01-25 18:16] LABS: Protein, Urine 263.0 mg/dL (1-14)
--- NOTE | 2025-01-25 18:23 | DVHPNRES ---
Progress Note Date Seen: Jan 25, 2025 Resident Creating Document: BECKIE QUIJANO Medical Necessity Reason Pt with a Central, PICC or Fol: No Subjective Review of Systems Patient seen at bedside. No new complaints. PICC line to be placed. Planning to sent home on IV antibiotics ceftriaxone and linezolid. Shila Oliver is a 69-year-old male patient who presents to the ED with chief complaint of generalized weakness, insomnia, decreased appetite and nonhealing right foot wound. Patient went to the clinic the day of admission where he was referred to see department with suspicion of osteomyelitis. Patient was recently admitted in the hospital with AGATA on CKD with hyperkalemia and severe anemia requiring IV fluids, hyperkalemia protocol and blood transfusion, patient was evaluated by Podiatry previously and refused amputation at that time, he was discharged with p.o. antibiotics and home health services. Denies any other associated symptom including fever, chills, unintentional weight loss and shortness of breath. 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 Denies current tobacco, alcohol and other drug abuse Allergies: Denies Home medication: Metformin, statins and blood pressure medication (he was supposed to take aspirin and clopidogrel, but he stopped taking) Objective vital signs Vital Sign Date Time Temp Pulse Resp B/P (MAP) Pulse Ox O2 Delivery O2 Flow Rate FiO2 01/25/25 14:18 161/79 01/25/25 13:00 98.1 83 17 98 98.1 01/25/25 08:00 Room Air* 0 21 Total Intake and Output 01/24/25 01/24/25 01/25/25 15:00 23:00 07:00 Intake Total 125 ml 875 ml 650 ml Output Total 950 ml Balance 125 ml -75 ml 650 ml medications Current Medications Medications Dose Ordered Sig/Jessica Route Start Time Stop Time Status Last Admin Dose Admin Acetaminophen 325 mg Q4HP PRN PO 01/18/25 11:30 01/24/25 05:13 325 MG Ondansetron HCl 4 mg Q4HP PRN IV 01/18/25 11:30 01/23/25 22:05 4 MG Morphine Sulfate 2 mg Q4HPRN PRN IV 01/18/25 11:30 01/25/25 09:23 2 MG Diagnostic Test (Pha) 1 strip Q6HR 01/18/25 12:00 01/25/25 18:05 1 STRIP Insulin Human Regular Q6HR SC 01/18/25 12:00 01/25/25 18:05 3 UNITS Dextrose 50 ml UD PRN IV 01/18/25 11:30 Ergocalciferol 50,000 unit Q7D PO 01/19/25 10:00 01/20/25 08:09 50,000 UNIT Aspirin 81 mg DAILY PO 01/19/25 10:00 01/25/25 09:35 81 MG Clopidogrel Bisulfate 75 mg DAILY PO 01/19/25 10:00 01/25/25 09:34 75 MG Sodium Chloride 1,000 ml @ 60 mls/hr [id number] IV 01/18/25 23:00 01/23/25 19:40 60 MLS/HR Hydralazine HCl 10 mg Q8HR PO 01/19/25 06:00 01/25/25 14:18 10 MG Bisacodyl 5 mg DAILYP PRN PO 01/20/25 16:00 01/22/25 09:28 5 MG Polyethylene Glycol 17 gm DAILYPRN PRN PO 01/20/25 16:00 01/22/25 09:29 17 GM Hydralazine HCl 10 mg Q4HPRN PRN IV 01/20/25 17:00 01/25/25 03:42 10 MG Amlodipine Besylate 10 mg DAILY PO 01/22/25 10:00 01/25/25 09:34 10 MG Melatonin 5 mg HS PO 01/23/25 22:00 01/24/25 22:46 5 MG Ceftriaxone Sodium 50 ml @ 100 mls/hr DAILY@09 IV 01/26/25 09:00 Linezolid 600 mg BID PO 01/25/25 22:00 Examination Patient lying in bed, in no acute distress General: Lucid, afebrile, mucosae are dry, pale conjunctivae Cardiovascular: Normal S1 and S2. No murmurs, gallops or rubs Respiratory: Normal ventilation mechanics. Clear lung sounds on auscultation Abdomen: Soft, nontender, no organomegaly, normal bowel sounds MSK/skin: Mobilizes 4 limbs. Skin is dry. Amputated toes wrapped in bandage. Weak posterior tibial pulse palpated. Neurological: Oriented in 3 spheres. No motor no sensitive deficits. Pupils are isocoric and reactive laboratory and microbiology Laboratory Tests 01/25/25 05:23 Test 01/25/25 05:23 Range/Units Serum Glucose 114 H 74-106 mg/dL Microbiology Date/Time Source Procedure Growth Status 01/19/25 10:03 Foot Right Gram Stain - Final Complete 01/19/25 10:03 Anaerobic Culture - Final Finegoldia magna Complete 01/19/25 10:03 Aerobic Culture - Final Proteus vulgaris Enterococcus faecalis Complete 01/19/25 04:00 Voided Urine Urine Culture - Final Complete 01/18/25 14:02 Blood Blood Culture - Final NO GROWTH AFTER 5 DAYS OF INCUBATION. Complete Problem List/Assessment/Plan Problem List/Assessment/Plan Assessment and plan S/P partial amputation of right foot digits Right foot osteomyelitis Right foot abscess Right foot cellulitis Right foot diabetic ulcer History of amputation of right foot 1st digit. History of peripheral artery disease status post stent placement Podiatry consult Dressing to be undressed by Podiatry Admit to [facility] Completed foot CT which showed amputation of right hallux with osteomyelitis of 1st metatarsal and 2nd to 5th digit osteomyelitis. Completed duplex of bilateral lower limbs which showed no significant stenosis. Continue aspirin and statin. 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 Echocardiogram on 12/2024 shows concentric LVH with left atrial enlargement, mild annular calcification, LVEF 45-50 % with global hypokinesis, moderate TR and mild MR. Target in-hospital blood glucose less than 180. On hydralazine and amlodipine Internal hemorrhoids Follow up with PCP on discharge Code status full code Case discussed with Dr. Jordan Plan discussed with: Patient My Orders My Orders Orders - BECKIE QUIJANO Procedure Category Date Status Time Ceftriaxone 1gm/50ml PHA 01/26/25 In Process (Rocephin) 09:00 Linezolid Tablet PHA 01/25/25 In Process (Zyvox Tablet) 22:00 Communication Order ORDERS 01/25/25 Transmitted 13:00 Strict I & O RUSLAN 01/25/25 In Process 14:55 PICC BD 01/25/25 Transmitted 17:49 * Laboratory Director CONS 01/25/25 Transmitted Consult PTPTT LAB 01/26/25 Verified 04:00 Prothrombin Time W/ LAB 01/26/25 Verified INR 04:00 Dietary Evaluation Review Comments: Nutrition Recommendation: 1) Kalia 1 pk BID 2) CCHO 60gm + cardiac diet 3) Monitor PO intake, lab values, weight trend, and I/O Expected Outcomes/Goals: Wound to improve FU 3-5 days Date of Service: Jan 25, 2025 Billing Provider: CLYDE HAYNES MD Common Visit Codes: [id number] INP/OBS CARE(HIGH) BECKIE QUIJANO Jan 25, 2025 18:23
[2025-01-25] MEDS: LINEZOLID 600MG TABLET PO SCH (21:19)
[2025-01-26 01:00] VITALS: BP 135/71; PULSE 95; RESP 16; TEMP 97; O2SAT 98
[2025-01-26] MEDS: MORPHINE SULFATE 4 MG/ML SYR/VIAL IV PRN (01:19)
[2025-01-26 05:00] VITALS: PULSE 95; RESP 18; TEMP 98.1; O2SAT 98
[2025-01-26 05:09] LABS: Hematocrit 27.3 % (41.0-53.0); Hemoglobin 8.8 g/dL (13.5-17.5); Mean Corpuscular Hemoglobin 25.1 pg (28.0-32.0); Mean Corpuscular Volume 77.7 fL (80.0-100.0); Nucleated Red Blood Cells % 0.0 %
[2025-01-26 05:18] LABS: INR 1.14 (0.9-1.15); Partial Thromboplastin Time 33.6 SEC (24.5-34.5); Prothrombin Time 11.9 sec (9.3-11.8)
[2025-01-26 05:28] LABS: Alanine Aminotransferase 11 U/L (7-40); Anion Gap 9 (5-15); BUN/Creatinine Ratio 11.5 (10.0-20.0); Blood Urea Nitrogen 15 mg/dL (9-23); Carbon Dioxide 22 mmol/L (20-31); Chloride 104 mmol/L (98-107); Potassium 4.4 mmol/L (3.5-5.1)
[2025-01-26 05:29] LABS: Bilirubin, Total 0.4 mg/dL (0.2-1.0)
[2025-01-26 05:31] LABS: Albumin 2.8 g/dL (3.2-4.8); Alkaline Phosphatase 185 U/L (46-116); Calcium 7.9 mg/dL (8.7-10.4); Glucose 126 mg/dL (74-106); Sodium 135 mmol/L (136-145); Total Protein 5.6 g/dL (5.7-8.2)
[2025-01-26 08:00] VITALS: PULSE 85; RESP 18; O2SAT 97
[2025-01-26 08:54] VITALS: BP 145/76; PULSE 85; RESP 18; TEMP 97.4; O2SAT 97
[2025-01-26 12:50] VITALS: BP 155/72; PULSE 82; RESP 17; TEMP 97.4; O2SAT 98
--- NOTE | 2025-01-26 13:42 | DVHPNRES ---
Progress Note Date Seen: Jan 26, 2025 Resident Creating Document: BECKIE QUIJANO Medical Necessity Reason Pt with a Central, PICC or Fol: No Subjective Review of Systems Patient seen at bedside. No new complaints. PICC line to be placed. Planning to sent home on IV antibiotics ceftriaxone and linezolid. Shila Oliver is a 69-year-old male patient who presents to the ED with chief complaint of generalized weakness, insomnia, decreased appetite and nonhealing right foot wound. Patient went to the clinic the day of admission where he was referred to see department with suspicion of osteomyelitis. Patient was recently admitted in the hospital with AGATA on CKD with hyperkalemia and severe anemia requiring IV fluids, hyperkalemia protocol and blood transfusion, patient was evaluated by Podiatry previously and refused amputation at that time, he was discharged with p.o. antibiotics and home health services. Denies any other associated symptom including fever, chills, unintentional weight loss and shortness of breath. 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 Denies current tobacco, alcohol and other drug abuse Allergies: Denies Home medication: Metformin, statins and blood pressure medication (he was supposed to take aspirin and clopidogrel, but he stopped taking) Objective vital signs Vital Sign Date Time Temp Pulse Resp B/P (MAP) Pulse Ox O2 Delivery O2 Flow Rate FiO2 01/26/25 13:15 155/72 01/26/25 12:50 97.4 82 17 98 97.4 01/26/25 08:00 Room Air* 0 21 Total Intake and Output 01/25/25 01/25/25 01/26/25 15:00 23:00 07:00 Intake Total 100 ml 800 ml 200 ml Balance 100 ml 800 ml 200 ml medications Current Medications Medications Dose Ordered Sig/Jessica Route Start Time Stop Time Status Last Admin Dose Admin Acetaminophen 325 mg Q4HP PRN PO 01/18/25 11:30 01/26/25 01:05 325 MG Ondansetron HCl 4 mg Q4HP PRN IV 01/18/25 11:30 01/23/25 22:05 4 MG Diagnostic Test (Pha) 1 strip Q6HR 01/18/25 12:00 01/26/25 12:00 1 STRIP Insulin Human Regular Q6HR SC 01/18/25 12:00 01/25/25 18:05 3 UNITS Dextrose 50 ml UD PRN IV 01/18/25 11:30 Ergocalciferol 50,000 unit Q7D PO 01/19/25 10:00 01/20/25 08:09 50,000 UNIT Aspirin 81 mg DAILY PO 01/19/25 10:00 01/26/25 09:16 81 MG Clopidogrel Bisulfate 75 mg DAILY PO 01/19/25 10:00 01/26/25 09:15 75 MG Sodium Chloride 1,000 ml @ 60 mls/hr [id number] IV 01/18/25 23:00 01/23/25 19:40 60 MLS/HR Hydralazine HCl 10 mg Q8HR PO 01/19/25 06:00 01/26/25 13:15 10 MG Bisacodyl 5 mg DAILYP PRN PO 01/20/25 16:00 01/22/25 09:28 5 MG Polyethylene Glycol 17 gm DAILYPRN PRN PO 01/20/25 16:00 01/22/25 09:29 17 GM Hydralazine HCl 10 mg Q4HPRN PRN IV 01/20/25 17:00 01/25/25 03:42 10 MG Amlodipine Besylate 10 mg DAILY PO 01/22/25 10:00 01/26/25 09:16 10 MG Melatonin 5 mg HS PO 01/23/25 22:00 01/25/25 21:19 5 MG Ceftriaxone Sodium 50 ml @ 100 mls/hr DAILY@09 IV 01/26/25 09:00 01/26/25 09:15 100 MLS/HR Linezolid 600 mg BID PO 01/25/25 22:00 01/26/25 09:15 600 MG Morphine Sulfate 2 mg Q4HPRN PRN IV 01/26/25 01:00 01/26/25 01:19 2 MG Examination Patient lying in bed, in no acute distress General: Lucid, afebrile, mucosae are dry, pale conjunctivae Cardiovascular: Normal S1 and S2. No murmurs, gallops or rubs Respiratory: Normal ventilation mechanics. Clear lung sounds on auscultation Abdomen: Soft, nontender, no organomegaly, normal bowel sounds MSK/skin: Mobilizes 4 limbs. Skin is dry. Amputated toes wrapped in bandage. Weak posterior tibial pulse palpated. Neurological: Oriented in 3 spheres. No motor no sensitive deficits. Pupils are isocoric and reactive laboratory and microbiology Laboratory Tests 01/26/25 04:39 Test 01/26/25 04:39 Range/Units Serum Glucose 126 H 74-106 mg/dL Microbiology Date/Time Source Procedure Growth Status 01/19/25 10:03 Foot Right Gram Stain - Final Complete 01/19/25 10:03 Anaerobic Culture - Final Finegoldia magna Complete 01/19/25 10:03 Aerobic Culture - Final Proteus vulgaris Enterococcus faecalis Complete 01/19/25 04:00 Voided Urine Urine Culture - Final Complete 01/18/25 14:02 Blood Blood Culture - Final NO GROWTH AFTER 5 DAYS OF INCUBATION. Complete Problem List/Assessment/Plan Problem List/Assessment/Plan Assessment and plan S/P partial amputation of right foot digits Right foot osteomyelitis Right foot abscess Right foot cellulitis Right foot diabetic ulcer History of amputation of right foot 1st digit. History of peripheral artery disease status post stent placement Podiatry consult Dressing to be undressed by Podiatry Admit to [facility] Completed foot CT which showed amputation of right hallux with osteomyelitis of 1st metatarsal and 2nd to 5th digit osteomyelitis. Completed duplex of bilateral lower limbs which showed no significant stenosis. Continue aspirin and statin. 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 Echocardiogram on 12/2024 shows concentric LVH with left atrial enlargement, mild annular calcification, LVEF 45-50 % with global hypokinesis, moderate TR and mild MR. Target in-hospital blood glucose less than 180. On hydralazine and amlodipine Internal hemorrhoids Follow up with PCP on discharge Code status full code Case discussed with Dr. Jordan Plan discussed with: Patient My Orders My Orders Orders - BECKIE QUIJANO Procedure Category Date Status Time Strict I & O RUSLAN 01/25/25 In Process 14:55 PICC BD 01/25/25 Transmitted 17:49 * [employer] CONS 01/25/25 Transmitted Consult Dietary Evaluation Review Comments: Nutrition Recommendation: 1) Kalia 1 pk BID 2) CCHO 60gm + cardiac diet 3) Monitor PO intake, lab values, weight trend, and I/O Expected Outcomes/Goals: Wound to improve FU 3-5 days Date of Service: Jan 26, 2025 Billing Provider: CLYDE HAYNES MD Common Visit Codes: [id number] INP/OBS CARE(HIGH) BECKIE QUIJANO RESIDENT Jan 26, 2025 13:42
--- NOTE | 2025-01-26 13:56 | DVHPN2 ---
Progress Note Date Seen: Jan 26, 2025 Resident Creating Document: CARIDAD ANTON RESIDENT Medical Necessity Reason Pt with a Central, PICC or Fol: No Subjective Patient reports: No new complaints, Feels better Other Systems: Patient seen and examined by myself today with the mediciene resident, I agree with the assessment and plan Objective vital signs Vital Sign Date Time Temp Pulse Resp B/P (MAP) Pulse Ox O2 Delivery O2 Flow Rate FiO2 01/26/25 13:15 155/72 01/26/25 12:50 97.4 82 17 98 97.4 01/26/25 08:00 Room Air* 0 21 Total Intake and Output 01/25/25 01/25/25 01/26/25 15:00 23:00 07:00 Intake Total 100 ml 800 ml 200 ml Balance 100 ml 800 ml 200 ml medications Current Medications Medications Dose Ordered Sig/Jessica Route Start Time Stop Time Status Last Admin Dose Admin Acetaminophen 325 mg Q4HP PRN PO 01/18/25 11:30 01/26/25 01:05 325 MG Ondansetron HCl 4 mg Q4HP PRN IV 01/18/25 11:30 01/23/25 22:05 4 MG Diagnostic Test (Pha) 1 strip Q6HR 01/18/25 12:00 01/26/25 12:00 1 STRIP Insulin Human Regular Q6HR SC 01/18/25 12:00 01/25/25 18:05 3 UNITS Dextrose 50 ml UD PRN IV 01/18/25 11:30 Ergocalciferol 50,000 unit Q7D PO 01/19/25 10:00 01/20/25 08:09 50,000 UNIT Aspirin 81 mg DAILY PO 01/19/25 10:00 01/26/25 09:16 81 MG Clopidogrel Bisulfate 75 mg DAILY PO 01/19/25 10:00 01/26/25 09:15 75 MG Sodium Chloride 1,000 ml @ 60 mls/hr [id number] IV 01/18/25 23:00 01/23/25 19:40 60 MLS/HR Hydralazine HCl 10 mg Q8HR PO 01/19/25 06:00 01/26/25 13:15 10 MG Bisacodyl 5 mg DAILYP PRN PO 01/20/25 16:00 01/22/25 09:28 5 MG Polyethylene Glycol 17 gm DAILYPRN PRN PO 01/20/25 16:00 01/22/25 09:29 17 GM Hydralazine HCl 10 mg Q4HPRN PRN IV 01/20/25 17:00 01/25/25 03:42 10 MG Amlodipine Besylate 10 mg DAILY PO 01/22/25 10:00 01/26/25 09:16 10 MG Melatonin 5 mg HS PO 01/23/25 22:00 01/25/25 21:19 5 MG Ceftriaxone Sodium 50 ml @ 100 mls/hr DAILY@09 IV 01/26/25 09:00 01/26/25 09:15 100 MLS/HR Linezolid 600 mg BID PO 01/25/25 22:00 01/26/25 09:15 600 MG Morphine Sulfate 2 mg Q4HPRN PRN IV 01/26/25 01:00 01/26/25 01:19 2 MG Examination Patient lying in bed, in no acute distress General: Lucid, afebrile, mucosae are dry, pale conjunctivae Cardiovascular: Normal S1 and S2. No murmurs, gallops or rubs Respiratory: Normal ventilation mechanics. Clear lung sounds on auscultation Abdomen: Soft, nontender, no organomegaly, normal bowel sounds MSK/skin: Mobilizes 4 limbs. Skin is dry and warm. Necrotic toes in right foot, purulent discharge from right hallux amputation. Neurological: Oriented in 3 spheres. No motor no sensitive deficits. Pupils are isocoric and reactive plan laboratory and microbiology Laboratory Tests 01/26/25 04:39 Test 01/26/25 04:39 Range/Units Serum Glucose 126 H 74-106 mg/dL Microbiology Date/Time Source Procedure Growth Status 01/19/25 10:03 Foot Right Gram Stain - Final Complete 01/19/25 10:03 Anaerobic Culture - Final Finegoldia magna Complete 01/19/25 10:03 Aerobic Culture - Final Proteus vulgaris Enterococcus faecalis Complete 01/19/25 04:00 Voided Urine Urine Culture - Final Complete 01/18/25 14:02 Blood Blood Culture - Final NO GROWTH AFTER 5 DAYS OF INCUBATION. Complete Labs and/or images reviewed: Labs reviewed by me, Image(s) reviewed by me Problem List/Assessment/Plan Problem List/Assessment/Plan AGATA likely hemodynamic mediated on CKD stage 3-improved Right foot osteomyelitis /Abscess/ diabetic foot History of PAD status post stent HFmrEF Nephrotic syndrome likely diabetic kidney disease Plan/recommendations: Kidney function is improving Increase urine output Daily monitor lab Avoid nephrotoxic agent Patient is high-risk for developing contrast induced AGATA due to underlying diabetic nephropathy which brought him 50% risk of end up with dialysis, recommended MRA If wants to proceed with CT angiogram then our recommendation to start IVF with NS 1 mL/kg before 6 hours of contrast followed by 80 mg Lasix IV push immediately after the contrast and 1 mL/kg NS for 18 hours after IV contrast. Outpatient follow up with Dr. Waters in 2 weeks for CKD f/u Rest of management as per primary team Discussed my plan with Dr. Jordan Case discussed with the Dr. Waters Plan discussed with: Patient, Other (rn) Dietary Evaluation Review Comments: Nutrition Recommendation: 1) Kalia 1 pk BID 2) CCHO 60gm + cardiac diet 3) Monitor PO intake, lab values, weight trend, and I/O Expected Outcomes/Goals: Wound to improve FU 3-5 days CARIDAD ANTON RESIDENT Jan 26, 2025 13:56 APURVA WATERS MD Jan 26, 2025 15:31
[2025-01-26] MEDS: LIDOCAINE 1% (LOCAL ANESTH.) PF 5ml SDV ID ONE (17:07)
[2025-01-26 21:00] VITALS: BP 149/89; PULSE 95; RESP 18; TEMP 97.7; O2SAT 99
[2025-01-26] MEDS: SODIUM CHLOR 0.9% PF (SALINE LOCK) 10ML VIAL/SYR IV SCH (22:14)
[2025-01-27] VITALS (7 sets, daily range): BP systolic 149–164; BP diastolic 72–86; PULSE 8–93; RESP 16–18; TEMP 36.7; O2SAT 97–100
[2025-01-27 06:13] LABS: Nucleated Red Blood Cells % 0.0 %
[2025-01-27 06:17] LABS: Hematocrit 28.7 % (41.0-53.0); Hemoglobin 9.5 g/dL (13.5-17.5); Mean Corpuscular Hemoglobin 25.9 pg (28.0-32.0); Mean Corpuscular Volume 78.5 fL (80.0-100.0)
[2025-01-27 06:21] LABS: Alanine Aminotransferase 11 U/L (7-40); Anion Gap 10 (5-15); BUN/Creatinine Ratio 11.6 (10.0-20.0); Blood Urea Nitrogen 15 mg/dL (9-23); Carbon Dioxide 21 mmol/L (20-31); Chloride 104 mmol/L (98-107); Glucose 90 mg/dL (74-106); Potassium 4.2 mmol/L (3.5-5.1)
[2025-01-27 06:22] LABS: Bilirubin, Total 0.3 mg/dL (0.2-1.0)
[2025-01-27 06:34] LABS: Albumin 2.9 g/dL (3.2-4.8); Alkaline Phosphatase 182 U/L (46-116); Calcium 7.8 mg/dL (8.7-10.4); Sodium 135 mmol/L (136-145); Total Protein 5.7 g/dL (5.7-8.2)
--- NOTE | 2025-01-27 11:07 | DVHPN2 ---
Progress Note Date Seen: Jan 27, 2025 Resident Creating Document: CARIDAD ANTON RESIDENT Medical Necessity Reason Pt with a Central, PICC or Fol: No Subjective Patient reports: No new complaints, Feels better Other Systems: Patient seen and examined by myself today in rounds with the resident, I agree with the assessment and plan Objective vital signs Vital Sign Date Time Temp Pulse Resp B/P (MAP) Pulse Ox O2 Delivery O2 Flow Rate FiO2 01/27/25 09:17 164/86 01/27/25 08:44 98.0 89 16 100 98.0 01/27/25 07:50 Room Air* 0 21 Total Intake and Output 01/26/25 01/26/25 01/27/25 15:00 23:00 07:00 Intake Total 50 ml 300 ml 200 ml Output Total 900 ml 300 ml Balance 50 ml -600 ml -100 ml medications Current Medications Medications Dose Ordered Sig/Jessica Route Start Time Stop Time Status Last Admin Dose Admin Acetaminophen 325 mg Q4HP PRN PO 01/18/25 11:30 01/26/25 01:05 325 MG Ondansetron HCl 4 mg Q4HP PRN IV 01/18/25 11:30 01/23/25 22:05 4 MG Diagnostic Test (Pha) 1 strip Q6HR 01/18/25 12:00 01/27/25 05:27 1 STRIP Insulin Human Regular Q6HR SC 01/18/25 12:00 01/26/25 23:25 2 UNITS Dextrose 50 ml UD PRN IV 01/18/25 11:30 Ergocalciferol 50,000 unit Q7D PO 01/19/25 10:00 01/20/25 08:09 50,000 UNIT Aspirin 81 mg DAILY PO 01/19/25 10:00 01/27/25 09:17 81 MG Clopidogrel Bisulfate 75 mg DAILY PO 01/19/25 10:00 01/27/25 09:17 75 MG Sodium Chloride 1,000 ml @ 60 mls/hr [id number] IV 01/18/25 23:00 01/27/25 05:43 60 MLS/HR Hydralazine HCl 10 mg Q8HR PO 01/19/25 06:00 01/27/25 05:43 10 MG Bisacodyl 5 mg DAILYP PRN PO 01/20/25 16:00 01/22/25 09:28 5 MG Polyethylene Glycol 17 gm DAILYPRN PRN PO 01/20/25 16:00 01/22/25 09:29 17 GM Hydralazine HCl 10 mg Q4HPRN PRN IV 01/20/25 17:00 01/25/25 03:42 10 MG Amlodipine Besylate 10 mg DAILY PO 01/22/25 10:00 01/27/25 09:17 10 MG Melatonin 5 mg HS PO 01/23/25 22:00 01/26/25 22:13 5 MG Ceftriaxone Sodium 50 ml @ 100 mls/hr DAILY@09 IV 01/26/25 09:00 01/27/25 09:17 100 MLS/HR Linezolid 600 mg BID PO 01/25/25 22:00 01/27/25 09:17 600 MG Morphine Sulfate 2 mg Q4HPRN PRN IV 01/26/25 01:00 01/26/25 22:25 2 MG Sodium Chloride 10 ml QSHIFT@10,22 IV 01/26/25 22:00 01/27/25 09:17 10 ML Examination Patient lying in bed, in no acute distress General: Lucid, afebrile, mucosae are dry, pale conjunctivae Cardiovascular: Normal S1 and S2. No murmurs, gallops or rubs Respiratory: Normal ventilation mechanics. Clear lung sounds on auscultation Abdomen: Soft, nontender, no organomegaly, normal bowel sounds MSK/skin: Mobilizes 4 limbs. Skin is dry and warm. Necrotic toes in right foot, purulent discharge from right hallux amputation. Neurological: Oriented in 3 spheres. No motor no sensitive deficits. Pupils are isocoric and reactive plan laboratory and microbiology Laboratory Tests 01/27/25 04:59 Test 01/27/25 04:59 Range/Units Serum Glucose 90 74-106 mg/dL Microbiology Date/Time Source Procedure Growth Status 01/19/25 10:03 Foot Right Gram Stain - Final Complete 01/19/25 10:03 Anaerobic Culture - Final Finegoldia magna Complete 01/19/25 10:03 Aerobic Culture - Final Proteus vulgaris Enterococcus faecalis Complete 01/19/25 04:00 Voided Urine Urine Culture - Final Complete 01/18/25 14:02 Blood Blood Culture - Final NO GROWTH AFTER 5 DAYS OF INCUBATION. Complete Labs and/or images reviewed: Labs reviewed by me, Image(s) reviewed by me Problem List/Assessment/Plan Problem List/Assessment/Plan AGATA likely hemodynamic mediated on CKD stage 3-improved Right foot osteomyelitis /Abscess/ diabetic foot History of PAD status post stent HFmrEF Nephrotic syndrome likely diabetic kidney disease Plan/recommendations: Kidney function is improving Increase urine output Daily monitor lab Avoid nephrotoxic agent Patient is high-risk for developing contrast induced AGATA due to underlying diabetic nephropathy which brought him 50% risk of end up with dialysis, recommended MRA If wants to proceed with CT angiogram then our recommendation to start IVF with NS 1 mL/kg before 6 hours of contrast followed by 80 mg Lasix IV push immediately after the contrast and 1 mL/kg NS for 18 hours after IV contrast. Outpatient follow up with Dr. Waters in 2 weeks for CKD f/u Rest of management as per primary team Discussed my plan with Dr. Jordan Case discussed with the Dr. Waters Plan discussed with: Patient, Other Dietary Evaluation Review Comments: Nutrition Recommendation: 1) Kalia 1 pk BID 2) CCHO 60gm + cardiac diet 3) Monitor PO intake, lab values, weight trend, and I/O Expected Outcomes/Goals: Wound to improve FU 3-5 days CARIDAD ANTON RESIDENT Jan 27, 2025 11:07 APURVA WATERS MD Jan 27, 2025 12:58
--- NOTE | 2025-01-27 17:53 | DVHDSRES ---
Discharge Summary Date of Admission Resident Creating Document: CARIDAD ANTON RESIDENT Jan 18, 2025 at 11:18 Date of Discharge: Jan 27, 2025 Labs/Diagnostic Data: Laboratory Results Test 01/27/25 12:12 01/27/25 04:59 01/26/25 04:39 01/25/25 17:46 POC Glucose 134 mg/dl (70-106) White Blood Count 8.0 10^3/uL (4.4-10.8) Red Blood Count 3.66 10^6/uL (4.5-5.90) Hemoglobin 9.5 g/dL (13.5-17.5) Hematocrit 28.7 % (41.0-53.0) Mean Corpuscular Volume 78.5 fL (80.0-100.0) Mean Corpuscular Hemoglobin 25.9 pg (28.0-32.0) Mean Corpuscular Hemoglobin Concent 33.0 g/dL (32.0-36.0) Red Cell Distribution Width 16.2 % (11.8-14.3) Platelet Count 738 10^3/uL (140-450) Mean Platelet Volume 7.6 fL (6.9-10.8) Neutrophils (%) (Auto) 83.0 % (37.0-80.0) Lymphocytes (%) (Auto) 6.7 % (10.0-50.0) Monocytes (%) (Auto) 8.0 % (0.0-12.0) Eosinophils (%) (Auto) 0.8 % (0.0-7.0) Basophils (%) (Auto) 1.5 % (0.0-2.0) Neutrophils # (Auto) 6.6 10 ^3/uL (1.6-8.6) Lymphocytes # (Auto) 0.5 10 ^3/uL (0.4-5.4) Monocytes # (Auto) 0.6 10 ^3/uL (0-1.3) Eosinophils # (Auto) 0.1 10 ^3/uL (0-0.8) Basophils # (Auto) 0.1 10 ^3/uL (0-0.2) Nucleated Red Blood Cells 0.0 % Sodium Level 135 mmol/L (136-145) Potassium Level 4.2 mmol/L (3.5-5.1) Chloride Level 104 mmol/L (98-107) Carbon Dioxide Level 21 mmol/L (20-31) Anion Gap 10 (5-15) Blood Urea Nitrogen 15 mg/dL (9-23) Creatinine 1.29 mg/dL (0.700-1.30) Glomerular Filtration Rate Calc 61 mL/min (>90) BUN/Creatinine Ratio 11.6 (10.0-20.0) Serum Glucose 90 mg/dL (74-106) Calcium Level 7.8 mg/dL (8.7-10.4) Total Bilirubin 0.3 mg/dL (0.2-1.0) Aspartate Amino Transferase (AST) 15 U/L (13-40) Alanine Aminotransferase (ALT) 11 U/L (7-40) Alkaline Phosphatase 182 U/L (46-116) Total Protein 5.7 g/dL (5.7-8.2) Albumin 2.9 g/dL (3.2-4.8) Prothrombin Time 11.9 sec (9.3-11.8) Prothrombin Time INR 1.14 (0.9-1.15) Activated Partial Thromboplast Time 33.6 SEC (24.5-34.5) Random Vancomycin Level 15.8 ug/mL (5-10) Urine Color Light-yellow (Yellow) Urine Clarity Clear (Clear) Urine pH 5.5 (5.0-9.0) Urine Specific [place] 1.015 (1.001-1.035) Urine Protein 2+ (Negative) Urine Ketones Negative (Negative) Urine Blood Negative /uL (Negative) Urine Nitrite Negative (Negative) Urine Bilirubin Negative (Negative) Urine Urobilinogen Normal mg/dL (Negative) Urine Leukocyte Esterase Negative /uL (Negative) Urine RBC 1 /hpf (0 - 3) Urine Microscopic WBC 2 /HPF (0-3) Urine Squamous Epithelial Cells None seen /hpf (<5) Urine Amorphous Crystals Few /hpf (None Seen) Urine Bacteria None seen /hpf (None Seen) Urine Creatinine 71.61 mg/dL (30.0-125.0) Urine Protein/Creatinine Ratio 3.67 Urine Sodium 46 mmol/L (40-220) Urine Glucose Trace mg/dL (Normal) Urine Total Protein 263.0 mg/dL (1-14) Test 01/25/25 05:23 01/19/25 04:00 01/18/25 14:02 01/18/25 13:51 Phosphorus Level 3.0 mg/dL (2.4-5.1) Magnesium Level 1.9 mg/dL (1.6-2.6) Vitamin D 25-Hydroxy 32.8 ng/mL (30.0-100) Parathyroid Hormone (Intact) 54.8 pg/mL (18.4-80.1) Urine Opiates Screen Neg (NEGATIVE) Urine Fentanyl Screen Neg (NEGATIVE) Urine Barbiturates Screen Neg (NEGATIVE) Urine Phencyclidine Screen Neg (NEGATIVE) Urine Amphetamines Screen Neg (NEGATIVE) Urine Benzodiazepines Screen Neg (NEGATIVE) Urine Cocaine Screen Neg (NEGATIVE) Urine Cannabinoids Screen Neg (NEGATIVE) Lactic Acid Level 1.5 mmol/L (0.4-2.0) Iron Level 19 ug/dL (65-175) Total Iron Binding Capacity 196 ug/dL (250-425) Percent Iron Saturation 9.7 % (20-55) Haptoglobin 408 mg/dL (32-363) Test 01/18/25 09:41 Reticulocyte Count (auto) 1.96 % (0.5-1.5) Hemoglobin A1c 9.5 % A1C (<5.7) Ferritin 138.0 ng/mL (22-322) Triglycerides Level 133 mg/dL (< 150) Cholesterol Level 125 mg/dL (< 200) LDL Cholesterol 68 mg/dL (< 100) HDL Cholesterol 30 mg/dL (40-59) Vitamin B12 Level 897 pg/mL (211-911) Folic Acid 10.75 ng/mL (>5.38) Thyroid Stimulating Hormone (TSH) 5.85 uIU/mL (0.55-4.78) Other Laboratory Tests 01/27/25 04:59 Brief Hx & Hospital Course: Shila Oliver is a 69-year-old male patient who presents to the ED with chief complaint of generalized weakness, insomnia, decreased appetite and nonhealing right foot wound. Patient went to the clinic the day of admission where he was referred to see department with suspicion of osteomyelitis. Patient was recently admitted in the hospital with AGATA on CKD with hyperkalemia and severe anemia requiring IV fluids, hyperkalemia protocol and blood transfusion, patient was evaluated by Podiatry previously and refused amputation at that time, he was discharged with p.o. antibiotics and home health services. Denies any other associated symptom including fever, chills, unintentional weight loss and shortness of breath. Labs showed leukocytosis, anemia. Hemoglobin A1c was 9.5. Creatinine was elevated. Arterial ultrasound revealed no peripheral vascular insufficiency. Chest x-ray showed cardiomegaly with pulmonary vascular congestion. CT reveal osteomyelitis in the 1st metatarsal, 2nd 3rd 4th toes and 5th metatarsal head. Podiatry did partial amputation of 2nd and 4th Toes. Wound culture revealed Proteus and Enterococcus faecalis. Patient was treated with Vancomycin and Zosyn which was later transitioned into linezolid and ceftriaxone. during the course of the hospitalization, the patient improved clinically and is hence being discharged home with PICC line in place and home health for IV antibiotics for 6 weeks. Discharge plan Follow up with PCP in 7 days Follow up with Podiatry in 7 days Continue IV antibiotics through PICC line for 6 weeks as instructed Continue home medications Strict glycemic control CBC and CMP twice a week and fax to [address], [facility] on Friday Condition at Discharge: Good Final Diagnosis/Problems List S/P partial amputation of right foot digits Right foot osteomyelitis Right foot abscess Right foot cellulitis Right foot diabetic ulcer right foot gangrene History of amputation of right foot 1st digit. 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 (LVEF 45-50%) - no exacerbation Dyslipidemia type 2 Diabetes mellitus with hyperglycemia Peripheral neuropathy Internal hemorrhoids Discharge Disposition: Home with Health Services Discharge Instruct/Medications Diet: Consistent carbohydrate Activity: No Restrictions, As Tolerated Follow Up/Referral: F/u with PCP in 7 days F?u with DC clinic after iv Antibiotic course Medications: as per EHR Scheduled Amlodipine Besylate (Norvasc Tablet), 10 MG PO DAILY Amoxicillin & Pot Clavulanate (Augmentin Tablet), 875 MG PO BID Enalapril Maleate (Enalapril Maleate), 20 MG PO DAILY Furosemide (Lasix), 1 TAB PO BID Discharge Statement: "Patient was advised to return to the ER or call 911 if any headaches, dizziness, shortness of breath, chest pain, abdominal pain, bleeding, fevers, or worsening of medical condition. Patient was counseled about treatment plan, medications, possible side effects, patientverbalized understanding. All questions were answered to the best of my ability. This discharge took greater then 30 minutes in planning, reviewing documentation, counseling the patient, and discussing with other team members." ASSESSMENT ASSESSMENT Assessment Osteomelitis Visit Coding STANDARD RES Billing Provider: CLYDE HAYNES MD Date of Service if different f: Jan 27, 2025 Common Visit Codes: 78795-IPR/OBS DISCH DAY >30min BECKIE QUIJANO RESIDENT Jan 27, 2025 17:53
== END 2025-01-27 21:30 | disposition home health service (06) | DRG 239 ==
LOC: ER 09:21 → OVERFLOW 11:18 → CENTRAL 01-19 12:04
PROVIDERS: ADMIT Student in an Organized Health Care Education/Training Program; ATTEND Student in an Organized Health Care Education/Training Program
PROC: 0Y6M0Z9 Detachment at Right Foot, Partial 1st Ray, Open Approach (ICD-10-PCS; 2025-01-19)
PROC: 0Y6M0ZB Detachment at Right Foot, Partial 2nd Ray, Open Approach (ICD-10-PCS; 2025-01-19)
PROC: 0Y6M0ZC Detachment at Right Foot, Partial 3rd Ray, Open Approach (ICD-10-PCS; 2025-01-19)
PROC: 0Y6M0ZD Detachment at Right Foot, Partial 4th Ray, Open Approach (ICD-10-PCS; 2025-01-19)
PROC: 30233N1 Transfusion of Nonautologous Red Blood Cells into Peripheral Vein, Percutaneous Approach (ICD-10-PCS; 2025-01-19)
PROC: 0Y9M0ZZ Drainage of Right Foot, Open Approach (ICD-10-PCS; principal; 2025-01-19 09:47)
PROC: 02HV33Z Insertion of Infusion Device into Superior Vena Cava, Percutaneous Approach (ICD-10-PCS; 2025-01-26)
PROC: B548ZZA Ultrasonography of Superior Vena Cava, Guidance (ICD-10-PCS; 2025-01-26)
DX: E11.52 Type 2 diabetes mellitus with diabetic peripheral angiopathy with gangrene (principal); N17.0 Acute kidney failure with tubular necrosis; I50.22 Chronic systolic (congestive) heart failure; L03.115 Cellulitis of right lower limb; D63.8 Anemia in other chronic diseases classified elsewhere; E11.22 Type 2 diabetes mellitus with diabetic chronic kidney disease; D50.9 Iron deficiency anemia, unspecified; M86.8X7 Other osteomyelitis, ankle and foot; L02.611 Cutaneous abscess of right foot; I13.0 Hypertensive heart and chronic kidney disease with heart failure and stage 1 through stage 4 chronic kidney disease, or unspecified chronic kidney disease; N18.30 Chronic kidney disease, stage 3 unspecified; E11.69 Type 2 diabetes mellitus with other specified complication; E11.621 Type 2 diabetes mellitus with foot ulcer; E11.65 Type 2 diabetes mellitus with hyperglycemia; E78.5 Hyperlipidemia, unspecified; K64.8 Other hemorrhoids; D75.839 Thrombocytosis, unspecified; Z89.021 Acquired absence of right finger(s); Z83.3 Family history of diabetes mellitus; Z82.49 Family history of ischemic heart disease and other diseases of the circulatory system; Z87.891 Personal history of nicotine dependence
CPT/HCPCS: 36415; 36569; 71045; 73700; 76937; 80048; 80053; 80061; 80202; 80307; 81001; 82306; 82565; 82570; 82607; 82728; 82746; 82962; 83010; 83036; 83540; 83550; 83605; 83735; 83970; 84100; 84156; 84300; 84443; 85025; 85045; 85610; 85730; 86850; 86900; 86901; 86920; 87040; 87070; 87075; 87076; 87077; 87081; 87086; 87186; 87205; 93925; 96374; G0378; J1815; J2003; J2405; J2543; J2704; J3490

== ENCOUNTER 2025-02-02 13:11 | Inpatient (IN) | payer MEDICARE, MEDICAID ==
[~2025-02-02] VITALS: Ht 165.1 cm; Wt 74.1 kg
[~2025-02-02 13:11] MED LIST changes: -AUG875T PO; +RIVA2.5T PO
--- NOTE | 2025-02-02 14:08 | ED.PDOC ---
History of Present Illness HPI Comments 69 year old male presents to the ED with a chief complaint of abnormal labs onset today. Patient states he had blood drawn 2 days ago, was called by PCP this morning, was told Potassium levels were elevated, recommended to come to ED. He was discharged from [facility] on 01/27/25, was admitted lower extremity necro sis. Denies fever, chills, chest pain, dizziness, headache, shortness of breath, blurred vision, numbness/tingling. No other symptoms or modifying factors present at this time. Chief Complaint: Abnormal LAB's Time Seen by MD: 13:50 Reviewed Notes: Nurses Notes, Medications, Allergies Allergies: Coded Allergies: NO KNOWN ALLERGIES (Unverified , 12/07/24) Home Meds Active Scripts Amlodipine Besylate (NORVASC TABLET) 5 Mg Tb, 10 MG PO DAILY for 30 Days, #60 TAB 3 Refills Prov:GILBERT DAILY MD 12/08/24 Enalapril Maleate (Enalapril Maleate) 10 Mg Tab, 20 MG PO DAILY for 30 Days, #60 TAB 2 Refills Prov:GILBERT DAILY MD 12/08/24 Furosemide (Lasix) 20 Mg Tb, 1 TAB PO BID, #90 TAB 1 Refill Prov:GILBERT DAILY MD 12/08/24 Discontinued Scripts Amoxicillin & Pot Clavulanate (AUGMENTIN TABLET) 875 Mg Tb, 875 MG PO BID for 14 Days, #28 TAB Prov:GILBERT DAILY MD 12/08/24 Information Source: Patient, Spouse Mode of Arrival: Wheelchair Severity: Moderate Timing: Hours Duration: Since onset Prehospital treatment: None Associated signs and symptoms Generalized weakness, electrolyte imbalance, hyperkalemia, anemia Past Medical History PAST MEDICAL HISTORY: DM, High Lipids, HTN Surgical History (Other): RT foot 2 toes amputation Family History Family History: Unknown Social History Smoker: Non-Smoker Alcohol: Denies ETOH Use Drugs: Denies Drug Use Lives In: Home Constitutional: denies: chills, diaphoresis, fatigue, fever, malaise, sweats, weakness, others EENTM: denies: blurred vision, double vision, ear bleeding, ear discharge, ear drainage, ear pain, ear ringing, eye pain, eye redness, hearing loss, mouth pain, mouth swelling, nasal discharge, nose bleeding, nose congestion, nose pain, photophobia, tearing, throat pain, throat swelling, voice changes, others Respiratory: denies: cough, hemoptysis, orthopnea, SOB at rest, shortness of breath, SOB with excertion, stridor, wheezing, others Cardiovascular: denies: chest pain, dizzy spells, diaphoresis, Dyspnea on exertion, edema, irregular heart beat, left arm pain, lightheadedness, palpitations, PND, syncope, others Gastrointestinal: denies: abdomen distended, abdominal pain, blood streaked bowels, constipated, diarrhea, dysphagia, difficulty swallowing, hematemesis, melena, nausea, poor appetite, poor fluid intake, rectal bleeding, rectal pain, vomiting, others Genitourinary: denies: burning, dysuria, flank pain, frequency, hematuria, incontinence, penile discharge, penile sore, pain, testicle pain, testicle swelling, urgency, others Neurological: denies: dizziness, fainting, headache, left sided numbness, left sided weakness, numbness, paresthesia, pre-existing deficit, right sided numbness, right sided weakness, seizure, speech problems, tingling, tremors, weakness, others Musculoskeletal: denies: back pain, gout, joint pain, joint swelling, muscle pain, muscle stiffness, neck pain, others Integumetry: denies: bruises, change in color, change in hair/nails, dryness, laceration, lesions, lumps, rash, wounds, others Allergic/Immunocompromised: denies: Difficulty Healing, Frequent Infections, Hives, Itching, others Endocrine: denies: excessive hunger, excessive sweating, excessive thirst, excessive urination, flushing, intolerance to cold, intolerance to heat, unexplained weight gain, unexplained weight loss, others Psychiatric: denies: anxiety, bipolar disorder, depression, hopeless, panic disorder, schizophrenia, sleepless, suicidal, others All Other Systems: Reviewed and Negative Physical Exam General Appearance: Moderate Distress HEENT: Normal ENT Inspection, Pharynx Normal, TMs Normal Neck: Full Range of Motion, Non-Tender, Normal, Normal Inspection Respiratory: Chest Non-Tender, Lungs Clear, No Accessory Muscle Use, No Respiratory Distress, Normal Breath Sounds Cardiovascular: No Edema, No JVD, No Murmur, No Gallop, Normal Peripheral Pulses, Regular Rate/Rhythm Breast Exam: Deferred Gastrointestinal: No Organomegaly, Non Tender, No Pulsatile Mass, Normal Bowel Sounds, Soft Genitalia: Deferred Pelvic: Deferred Rectal: Deferred Extremities: No calf tenderness, Normal capillary refill, Normal inspection, Normal range of motion, Non-tender, No pedal edema Musculoskeletal : Apperance: Normal Neurologic: Alert, acupressurist II-XII nml as Tested, No Motor Deficits, Normal Affect, Normal Mood, No Sensory Deficits Cerebellar Function: Normal Reflexes: Normal Skin: Dry, Normal Color, Warm Lymphatic: No Adenopathy Was a procedure done? Was a procedure done?: No Differential Dx Considerations may include: Metabolic encephalopathy, hyperkalemia, anemia X-Ray, Labs, Meds, VS Vital Signs Date Time Temp Pulse Resp B/P (MAP) Pulse Ox O2 Delivery O2 Flow Rate FiO2 02/02/25 16:53 16 99 Room Air* 0 21 02/02/25 15:00 97.9 120 16 108/69 (82) 97 97.9 02/02/25 15:00 120 15 95 Room Air* 0 21 02/02/25 13:17 98.2 96 18 161/88 98 98.2 Lab Test 02/02/25 16:43 02/02/25 14:08 Range/Units POC Glucose 237 H 70-106 mg/dl White Blood Count 9.9 4.4-10.8 10^3/uL Red Blood Count 3.15 L 4.5-5.90 10^6/uL Hemoglobin 8.2 L 13.5-17.5 g/dL Hematocrit 24.7 #L 41.0-53.0 % Mean Corpuscular Volume 78.4 L 80.0-100.0 fL Mean Corpuscular Hemoglobin 26.0 L 28.0-32.0 pg Mean Corpuscular Hemoglobin Concent 33.1 32.0-36.0 g/dL Red Cell Distribution Width 16.5 H 11.8-14.3 % Platelet Count 560 H 140-450 10^3/uL Mean Platelet Volume 7.1 6.9-10.8 fL Neutrophils (%) (Auto) 86.7 H 37.0-80.0 % Lymphocytes (%) (Auto) 5.9 L 10.0-50.0 % Monocytes (%) (Auto) 5.2 0.0-12.0 % Eosinophils (%) (Auto) 1.2 0.0-7.0 % Basophils (%) (Auto) 1.0 0.0-2.0 % Neutrophils # (Auto) 8.6 1.6-8.6 10 ^3/uL Lymphocytes # (Auto) 0.6 0.4-5.4 10 ^3/uL Monocytes # (Auto) 0.5 0-1.3 10 ^3/uL Eosinophils # (Auto) 0.1 0-0.8 10 ^3/uL Basophils # (Auto) 0.1 0-0.2 10 ^3/uL Nucleated Red Blood Cells 0.0 % Sodium Level 130 #L 136-145 mmol/L Potassium Level 6.1 *H 3.5-5.1 mmol/L Chloride Level 98 98-107 mmol/L Carbon Dioxide Level 26 20-31 mmol/L Anion Gap 6 5-15 Blood Urea Nitrogen 24 H 9-23 mg/dL Creatinine 1.27 0.700-1.30 mg/dL Glomerular Filtration Rate Calc 62 >90 mL/min BUN/Creatinine Ratio 18.9 10.0-20.0 Serum Glucose 256 #H 74-106 mg/dL Calcium Level 8.4 L 8.7-10.4 mg/dL Current Medications Medications (Trade) Dose Ordered Sig/Jessica Route Start Time Stop Time Status Last Admin Sodium Bicarbonate 50 ml ONCE ONCE IV 02/02/25 15:30 02/02/25 15:31 DC 02/02/25 16:53 Dextrose 50 ml ONCE ONCE IV 02/02/25 15:30 02/02/25 15:31 DC 02/02/25 16:53 Calcium Gluconate/ Sodium Chloride 50 ml @ 100 mls/hr ONCE ONCE IV 02/02/25 15:30 02/02/25 15:59 DC 02/02/25 16:53 Insulin Human Regular (InsuLIN R) 5 units ONCE ONCE IV 02/02/25 15:30 02/02/25 15:31 DC 02/02/25 16:54 Albuterol (Ventolin Medneb) 20 mg ONCE ONCE NEB 02/02/25 16:45 02/02/25 16:46 DC 02/02/25 16:52 The patient's CBC shows anemia with a hemoglobin of 8.2 and hematocrit of 24.7 The chemistry panel shows a potassium of six one Twenty-four the creatinine is 1.27 The sodium level is 130 The patient is hyperglycemic 256 The patient had a sodium bicarbonate injected for the hyperkalemia The patient also was given dextrose as well as calcium and insulin IV The patient was given albuterol treatment for the hyperkalemia The patient has been admitted Time of 1ST Reevaluation: 14:20 Reevaluation 1ST: Unchanged Patient Education/Counseling: Diagnosis, Treatment, Prognosis Family Education/Counseling: Diagnosis, Treatment, Prognosis SEPSIS Sepsis Screen Date sepsis recognized/suspect: Feb 02, 2025 Time Sepsis recognized/suspect: 1320 Recent Procedure: No On Antibiotic Therapy: No Respiratory Rate >20: No Heart Rate >90: No Temp<36 C (96.8 F) or >38.3 C: No SBP <90 or MAP <65 mmHG: No New Acute Mental Status Change: No Is the patient on CPAP, BIPAP,: No Physician Orders Heplock Iv (02/02/25 15:16) Ship'S Electronic Warfare Officer (02/02/25 15:16) Blood Pressure (02/02/25 15:16) Pulse Oximetry (02/02/25 15:16) Chest Portable (02/02/25 16:34) Admit (02/02/25 17:24) Oxygen By Nasal Cannula (02/02/25 17:24) Stat Ekg For Chest Pain (02/02/25 17:24) Notify Md Of Changes From Base (02/02/25 17:24) Customer Sales Consultant For 24 Hours (02/02/25 17:24) Emergency Dysrhythmia Protocol (02/02/25 17:24) Rhythm Strips Once Every Shift (02/02/25 17:24) Vital Signs Date Time Temp Pulse Resp B/P (MAP) Pulse Ox O2 Delivery O2 Flow Rate FiO2 02/02/25 16:53 16 99 Room Air* 0 21 02/02/25 15:00 97.9 120 16 108/69 (82) 97 97.9 02/02/25 15:00 120 15 95 Room Air* 0 21 02/02/25 13:17 98.2 96 18 161/88 98 98.2 Laboratory Tests Test 02/02/25 14:08 White Blood Count 9.9 10^3/uL (4.4-10.8) Medications Medications Dose Ordered Sig/Jessica Route Start Time Stop Time Status Last Admin Dose Admin Albuterol 20 mg ONCE ONCE NEB 02/02/25 16:45 02/02/25 16:46 DC 02/02/25 16:52 Calcium Gluconate/ Sodium Chloride 50 ml @ 100 mls/hr ONCE ONCE IV 02/02/25 15:30 02/02/25 15:59 DC 02/02/25 16:53 Dextrose 50 ml ONCE ONCE IV 02/02/25 15:30 02/02/25 15:31 DC 02/02/25 16:53 Insulin Human Regular 5 units ONCE ONCE IV 02/02/25 15:30 02/02/25 15:31 DC 02/02/25 16:54 Sodium Bicarbonate 50 ml ONCE ONCE IV 02/02/25 15:30 02/02/25 15:31 DC 02/02/25 16:53 Departure 1 Departure Time of Disposition: 18:35 Impression: Primary Impression: Acute hyperkalemia Additional Impression: Anemia Qualified Codes: D64.9 - Anemia, unspecified Disposition: 09 ADMITTED INPATIENT Admit to: Tele Condition: Fair Critical Care Note Critical Care Time?: Yes (35 min-critical care time only) Stability Stability form required: Yes Unstable for transfer: Telemetry monitoring (Telemetry monitoring required), ED Physician Assesment (Clinical assesment) Heart Score Heart Score: Heart Score Response (Comments) Value History N/A 0 EKG N/A 0 Age N/A 0 Risk Factors N/A 0 Troponin N/A 0 Total 0 I personally scribed for JUSTIN ROOT MD ([email or web address]) on 02/02/25 at 14:08. El ectronically submitted by Asha Núñez ([email or web address]). JUSTIN ROOT MD Feb 02, 2025 14:08
[2025-02-02 14:21] LABS: Hematocrit 24.7 % (41.0-53.0); Hemoglobin 8.2 g/dL (13.5-17.5); Mean Corpuscular Hemoglobin 26.0 pg (28.0-32.0); Mean Corpuscular Volume 78.4 fL (80.0-100.0); Nucleated Red Blood Cells % 0.0 %
[2025-02-02 14:30] LABS: Anion Gap 6 (5-15); Carbon Dioxide 26 mmol/L (20-31)
[2025-02-02 14:35] LABS: BUN/Creatinine Ratio 18.9 (10.0-20.0)
[2025-02-02 14:40] LABS: Blood Urea Nitrogen 24 mg/dL (9-23); Calcium 8.4 mg/dL (8.7-10.4); Chloride 98 mmol/L (98-107); Glucose 256 mg/dL (74-106); Sodium 130 mmol/L (136-145)
[2025-02-02 14:41] LABS: Potassium 6.1 mmol/L (3.5-5.1)
[2025-02-02 15:00] VITALS: PULSE 120; RESP 15; O2SAT 95
[2025-02-02] MEDS: ALBUTEROL SULF 2.5 MG/0.5ML(0.5%) NEB SOLN NEB ONE ×2 (16:52→22:35)
[2025-02-02] MEDS: CALCIUM GLUC 1,000mg/50ml-NS 50 ML IV ONE ×2 (16:53→20:30)
[2025-02-02] MEDS: SODIUM BICARB 8.4% 50Meq/50ml SYR Vial IV ONE (16:53)
[2025-02-02] MEDS: DEXTROSE (50%) 50ML SYRG IV ONE ×2 (16:53→22:46)
[2025-02-02] MEDS: InsuLIN REG 1unit/0.01ml Soln (100units/ml) IV ONE ×3 (16:54→22:46)
--- NOTE | 2025-02-02 17:16 | DVH ---
CHEST RADIOGRAPH INDICATION: PICC line confirmation TECHNIQUE: Single frontal view of the chest was obtained COMPARISON: XY CHEST XRAY 1 VIEW on DOS: 01/18/25, XY CHEST XRAY 1 VIEW on DOS: 12/07/24, XR CHEST 1 VIEW on DOS: 10/05/24 FINDINGS: Lines and Tubes: Right upper extremity PICC terminating over the distal SVC. Lungs: Diffuse interstitial prominence. Indistinctness of bilateral costophrenic angles. No pneumothorax. Cardiomediastinal contours: Mild cardiomegaly Bones: No acute osseous abnormality. IMPRESSION: Cardiomegaly with pulmonary vascular congestion and possible trace effusion. Underlying infectious process can not be excluded. Right upper extremity PICC terminating over the distal SVC.
[2025-02-02] MEDS: FUROSEMIDE 20 MG/2 ML VIAL IV SCH (18:32)
[2025-02-02] MEDS: SODIUM ZIRCONIUM CYCL 10 GM PAK PO ONE ×2 (18:32→22:45)
--- NOTE | 2025-02-02 18:32 | ECG ---
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
[2025-02-02] MEDS: SODIUM CHLORIDE 0.9% 1,000 ML IV SCH (18:33)
[2025-02-02 19:08] LABS: Alanine Aminotransferase 16 U/L (7-40); Anion Gap 10 (5-15); BUN/Creatinine Ratio 21.4 (10.0-20.0); Carbon Dioxide 25 mmol/L (20-31); Total Protein 5.9 g/dL (5.7-8.2)
[2025-02-02 19:10] LABS: Albumin 3.1 g/dL (3.2-4.8); Alkaline Phosphatase 237 U/L (46-116); Bilirubin, Total 0.2 mg/dL (0.2-1.0); Blood Urea Nitrogen 27 mg/dL (9-23); Calcium 8.4 mg/dL (8.7-10.4); Chloride 97 mmol/L (98-107); Glucose 263 mg/dL (74-106); Potassium 5.3 mmol/L (3.5-5.1); Sodium 132 mmol/L (136-145)
--- NOTE | 2025-02-02 19:38 | DVHHP2 ---
History of Present Illness History of Present Illness 69-year-old male with a history of hypertension, diabetes, hyperlipidemia, peripheral arterial disease s/p multiple right-foot partial ray amputations for diabetic foot infection and osteomyelitis, CKD, chronic anemia, hemorrhoids, and diabetic neuropathy. He was recently discharged with a PICC line to complete a 6-week course of antibiotics. He was instructed by his PCP to return due to significantly elevated potassium on outpatient labs. On arrival his potassium was markedly elevated, and his EKG showed ventricular bigeminy. He received calcium, insulin, and bicarbonate with improvement. No chest pain, no dyspnea, no neurological complaints. He came for further evaluation and management of hyperkalemia and abnormal cardiac conduction. PMHx: Hypertension, diabetes, hyperlipidemia, peripheral arterial disease, diabetic foot with osteomyelitis, CKD, anemia, hemorrhoids, diabetic neuropathy, heart failure with EF 4550% (stable). PSHx: Right foot: serial partial ray amputations 1st, 2nd, 3rd, and 4th rays; right foot I&D to bone; right foot bone biopsy. Social History: Lives at home, no smoking, no alcohol, no drugs. Allergies: None. ROS: Negative except as above. Review of Systems Allergies: Coded Allergies: NO KNOWN ALLERGIES (Unverified , 12/07/24) Medications Current Medications Medications Dose Ordered Sig/Jessica Route Start Time Stop Time Status Last Admin Dose Admin Furosemide 20 mg DAILY IV 02/02/25 18:00 02/02/25 18:32 20 MG Ceftriaxone Sodium 50 ml @ 100 mls/hr DAILY@09 IV 02/02/25 18:00 02/02/25 18:32 100 MLS/HR Linezolid 300 ml @ 150 mls/hr Q12HR IV 02/02/25 22:00 Sodium Chloride 1,000 ml @ 75 mls/hr [id number] IV 02/02/25 18:00 02/02/25 18:33 75 MLS/HR Aspirin 81 mg DAILY PO 02/03/25 10:00 UNV Clopidogrel Bisulfate 75 mg DAILY PO 02/03/25 10:00 UNV Enoxaparin Sodium 40 mg DAILY SC 02/03/25 10:00 UNV Exam Vital Signs Vital Signs Date Time Temp Pulse Resp B/P (MAP) Pulse Ox O2 Delivery O2 Flow Rate FiO2 02/02/25 18:32 167/90 02/02/25 17:35 127 02/02/25 16:53 16 99 Room Air* 0 21 02/02/25 15:00 97.9 97.9 Exam General: Alert, no distress. HEENT: Moist mucosa. Neck: Supple. CV: Tachycardic with ventricular bigeminy on telemetry, regular S1/S2, no murmurs, warm extremities. Resp: Clear breath sounds, no wheezes or crackles. Abd: Soft, non-tender. Ext: Right foot covered with surgical dressing, no drainage through dressing, PICC line in right arm. Neuro: Non-focal, oriented, moves all extremities. Labs/Xrays Labs Test 02/02/25 18:28 02/02/25 16:43 02/02/25 14:08 Range/Units Sodium Level 132 L 136-145 mmol/L Potassium Level 5.3 H 3.5-5.1 mmol/L Chloride Level 97 L 98-107 mmol/L Carbon Dioxide Level 25 20-31 mmol/L Anion Gap 10 5-15 Blood Urea Nitrogen 27 H 9-23 mg/dL Creatinine 1.26 0.700-1.30 mg/dL Glomerular Filtration Rate Calc 63 >90 mL/min BUN/Creatinine Ratio 21.4 H 10.0-20.0 Serum Glucose 263 H 74-106 mg/dL Calcium Level 8.4 L 8.7-10.4 mg/dL Total Bilirubin 0.2 0.2-1.0 mg/dL Aspartate Amino Transferase (AST) 20 13-40 U/L Alanine Aminotransferase (ALT) 16 7-40 U/L Alkaline Phosphatase 237 H 46-116 U/L Total Protein 5.9 5.7-8.2 g/dL Albumin 3.1 L 3.2-4.8 g/dL POC Glucose 237 H 70-106 mg/dl White Blood Count 9.9 4.4-10.8 10^3/uL Red Blood Count 3.15 L 4.5-5.90 10^6/uL Hemoglobin 8.2 L 13.5-17.5 g/dL Hematocrit 24.7 #L 41.0-53.0 % Mean Corpuscular Volume 78.4 L 80.0-100.0 fL Mean Corpuscular Hemoglobin 26.0 L 28.0-32.0 pg Mean Corpuscular Hemoglobin Concent 33.1 32.0-36.0 g/dL Red Cell Distribution Width 16.5 H 11.8-14.3 % Platelet Count 560 H 140-450 10^3/uL Mean Platelet Volume 7.1 6.9-10.8 fL Neutrophils (%) (Auto) 86.7 H 37.0-80.0 % Lymphocytes (%) (Auto) 5.9 L 10.0-50.0 % Monocytes (%) (Auto) 5.2 0.0-12.0 % Eosinophils (%) (Auto) 1.2 0.0-7.0 % Basophils (%) (Auto) 1.0 0.0-2.0 % Neutrophils # (Auto) 8.6 1.6-8.6 10 ^3/uL Lymphocytes # (Auto) 0.6 0.4-5.4 10 ^3/uL Monocytes # (Auto) 0.5 0-1.3 10 ^3/uL Eosinophils # (Auto) 0.1 0-0.8 10 ^3/uL Basophils # (Auto) 0.1 0-0.2 10 ^3/uL Nucleated Red Blood Cells 0.0 % SEPSIS Sepsis Screen Date sepsis recognized/suspect: Feb 02, 2025 Time Sepsis recognized/suspect: 1320 Recent Procedure: No On Antibiotic Therapy: No Respiratory Rate >20: No Heart Rate >90: No Temp<36 C (96.8 F) or >38.3 C: No SBP <90 or MAP <65 mmHG: No New Acute Mental Status Change: No Is the patient on CPAP, BIPAP,: No Physician Orders Heplock Iv (02/02/25 15:16) Landing Signal Officer (02/02/25 15:16) Blood Pressure (02/02/25 15:16) Pulse Oximetry (02/02/25 15:16) Chest Portable (02/02/25 16:34) Admit (02/02/25 17:24) Oxygen By Nasal Cannula (02/02/25 17:24) Stat Ekg For Chest Pain (02/02/25 17:24) Notify Of Changes From Base (02/02/25 17:24) Bleacher Kraft Pulp For 24 Hours (02/02/25 17:24) Emergency Dysrhythmia Protocol (02/02/25 17:24) Rhythm Strips Once Every Shift (02/02/25 17:24) *Podiatry Consult Musson(Dvmg) (02/02/25 17:58) Furosemide Injection (Lasix Injection) (02/02/25 18:00) Ceftriaxone 1gm/50ml (Rocephin) (02/02/25 18:00) Linezolid 600mg/300ml (Zyvox) (02/02/25 22:00) Sodium Chloride 0.9% (02/02/25 18:00) Renal Standard(2gna,3gk,Lopho) (02/02/25 Dinner) Magnesium (02/02/25 19:16) Insulin R (Human) (Insulin R) (02/02/25 19:30) Sodium Bicarb 50meq/50ml Syr (02/02/25 19:30) Calcium Gluc 1,000mg/50ml-Ns (02/02/25 19:30) Communication Order (02/02/25 19:16) Phosphorus (02/02/25 19:20) Aspirin Chewable Tablet (02/03/25 10:00) Clopidogrel Bisulfate (Plavix) (02/03/25 10:00) Enoxaparin Sodium (Lovenox) (02/03/25 10:00) Vital Signs Date Time Temp Pulse Resp B/P (MAP) Pulse Ox O2 Delivery O2 Flow Rate FiO2 02/02/25 18:32 167/90 02/02/25 17:35 127 02/02/25 16:53 16 99 Room Air* 0 21 02/02/25 15:00 97.9 120 16 108/69 (82) 97 97.9 02/02/25 15:00 120 15 95 Room Air* 0 21 02/02/25 13:17 98.2 96 18 161/88 98 98.2 Laboratory Tests Test 02/02/25 14:08 White Blood Count 9.9 10^3/uL (4.4-10.8) Medications Medications Dose Ordered Sig/Jessica Route Start Time Stop Time Status Last Admin Dose Admin Albuterol 20 mg ONCE ONCE NEB 02/02/25 16:45 02/02/25 16:46 DC 02/02/25 16:52 20 MG Calcium Gluconate/ Sodium Chloride 50 ml @ 100 mls/hr ONCE ONCE IV 02/02/25 15:30 02/02/25 15:59 DC 02/02/25 16:53 100 MLS/HR Ceftriaxone Sodium 50 ml @ 100 mls/hr DAILY@09 IV 02/02/25 18:00 02/02/25 18:32 100 MLS/HR Dextrose 50 ml ONCE ONCE IV 02/02/25 15:30 02/02/25 15:31 DC 02/02/25 16:53 50 ML Furosemide 20 mg DAILY IV 02/02/25 18:00 02/02/25 18:32 20 MG Insulin Human Regular 5 units ONCE ONCE IV 02/02/25 15:30 02/02/25 15:31 DC 02/02/25 16:54 5 UNITS Sodium Bicarbonate 50 ml ONCE ONCE IV 02/02/25 15:30 02/02/25 15:31 DC 02/02/25 16:53 50 ML Sodium Chloride 1,000 ml @ 75 mls/hr [id number] IV 02/02/25 18:00 02/02/25 18:33 75 MLS/HR Zirconium Oxide 10 gm ONCE ONCE PO 02/02/25 18:00 02/02/25 18:16 DC 02/02/25 18:32 10 GM Assessment/Plan Assessment/Plan #Hyperkalemia Likely multifactorial in the setting of CKD and home medications. EKG showed ventricular bigeminy consistent with conduction disturbance from elevated potassium. Treated with IV calcium, insulin, lokelma, furosemide and bicarbonate with improvement. Will continue telemetry, repeat BMP, avoid potassium-raising agents, monitor renal function. #Cardiac conduction abnormality with ventricular bigeminy Secondary to electrolyte derangement. Rhythm improved post-correction. Continue telemetry, ensure accurate electrode placement after shaving due to interference , monitor for recurrent arrhythmia. #Peripheral arterial disease Known history with multiple partial ray amputations to the right foot. No acute ischemic signs today. Restart aspirin and clopidogrel. A CTA is pending for vascular surgery reevaluation, pending nephro clearance for that . #Diabetic foot with osteomyelitis S/p multiple partial amputations, currently on outpatient IV antibiotics via PICC (ceftriaxone and linezolid). Continue current regimen, monitor for signs of local infection. #Chronic kidney disease Stable renal function (Cr 1.26, GFR 63). Monitor BMP, avoid nephrotoxins, adjust medications to renal function. #Anemia Chronic and stable at baseline (Hgb 8.2). Monitor CBC, evaluate iron studies if needed, no transfusion indicated unless symptomatic or trending down. #Diabetes mellitus Hyperglycemia on admission (glucose 263). ISS #Hypertension Initially elevated on arrival. Start amlodipine Hold MINA inhibitor until potassium remains stable. #DVT prophylaxis Start prophylactic anticoagulation during admission. Case discussed with Dr Dawn Plan discussed with: Patient, Other (rn) My Orders Orders - ASHLEY FLORENCE RESIDENT Procedure Category Date Status Time Admit ADMIT 02/02/25 Transmitted 17:24 Oxygen By Nasal RT 02/02/25 Transmitted Cannula 17:24 Stat Ekg For Chest [facility] 02/02/25 In Process Pain 17:24 Notify Md Of Changes [facility] 02/02/25 In Process From Base 17:24 Bleacher Kraft Pulp For RUSLAN 02/02/25 In Process 24 Hours 17:24 Emergency Dysrhythmia [facility] 02/02/25 In Process Protocol 17:24 Rhythm Strips Once [facility] 02/02/25 In Process Every Shift 17:24 *Podiatry Consult CONS 02/02/25 Transmitted Musson(Dvmg) 17:58 Furosemide Injection PHA 02/02/25 In Process (Lasix Injection) 18:00 Ceftriaxone 1gm/50ml PHA 02/02/25 In Process (Rocephin) 18:00 Linezolid 600mg/300ml PHA 02/02/25 In Process (Zyvox) 22:00 Sodium Chloride 0.9% PHA 02/02/25 In Process 18:00 Renal DIET 02/02/25 Transmitted Standard(2gna,3gk,Lopho) Dinner Magnesium LAB 02/02/25 In Process 19:16 Insulin R (Human) PHA 02/02/25 Logged (Insulin R) 19:30 Sodium Bicarb PHA 02/02/25 Logged 50meq/50ml Syr 19:30 Calcium Gluc PHA 02/02/25 Logged 1,000mg/50ml-Ns 19:30 Communication Order ORDERS 02/02/25 Transmitted 19:16 Phosphorus LAB 02/02/25 In Process 19:20 Aspirin Chewable PHA 02/03/25 Logged Tablet 10:00 Clopidogrel Bisulfate PHA 02/03/25 Logged (Plavix) 10:00 Enoxaparin Sodium PHA 02/03/25 Logged (Lovenox) 10:00 Date of Service: Feb 02, 2025 Billing Provider: NATE DAWN MD Common Visit Codes: [id number] INP/OBS CARE (HIGH) Secondary Visit Codes: [id number] CARE PLAN 30 MINUTES ASHLEY FLORENCE RESIDENT Feb 02, 2025 19:38
[2025-02-02] MEDS ORDERED: DEXTROSE (50%) 50ML SYRG IV PRN (19:45)
[2025-02-02 20:11] LABS: Iron 27.0 ug/dL (65-175); Total Iron Binding Capacity 201.0 ug/dL (250-425)
[2025-02-02] MEDS: SODIUM BICARB 8.4% 50Meq/50ml SYR INJ IV ONE ×2 (20:31→22:46)
[2025-02-02] MEDS: ACCU-CHEK COMFORT CURVE STRIP VI SCH (22:00)
[2025-02-02] MEDS: LINEZOLID 600MG/300ML 300 ML IV SCH (22:09)
[2025-02-02] MEDS: FUROSEMIDE 40 MG/4 ML VIAL IV ONE (22:46)
[2025-02-02] MEDS: InsuLIN REG 1unit/0.01ml Soln (100units/ml) SC SCH (22:53)
[2025-02-03] VITALS (9 sets, daily range): BP systolic 171; BP diastolic 92; PULSE 74–117; RESP 11–20; TEMP 97.7–97.8; O2SAT 94–98
[2025-02-03] MEDS: MORPHINE SULFATE INJ 2 MG/ml SYRG IV ONE (02:09)
[2025-02-03] MEDS: MORPHINE SULFATE 4 MG/ML SYR/VIAL ONE (02:13)
[2025-02-03 05:37] LABS: Hemoglobin 7.3 g/dL (13.5-17.5); Mean Corpuscular Hemoglobin 25.4 pg (28.0-32.0); Mean Corpuscular Volume 77.9 fL (80.0-100.0); Nucleated Red Blood Cells % 0.0 %
[2025-02-03 05:39] LABS: Hematocrit 22.4 % (41.0-53.0)
[2025-02-03 05:54] LABS: Alanine Aminotransferase 16 U/L (7-40); Anion Gap 8 (5-15); BUN/Creatinine Ratio 21.1 (10.0-20.0); Carbon Dioxide 28 mmol/L (20-31); Chloride 99 mmol/L (98-107)
[2025-02-03 06:16] LABS: Albumin 2.7 g/dL (3.2-4.8); Alkaline Phosphatase 205 U/L (46-116); Bilirubin, Total 0.2 mg/dL (0.2-1.0); Blood Urea Nitrogen 24 mg/dL (9-23); Calcium 7.9 mg/dL (8.7-10.4); Glucose 218 mg/dL (74-106); Potassium 5.3 mmol/L (3.5-5.1); Sodium 135 mmol/L (136-145); Total Protein 5.4 g/dL (5.7-8.2)
--- NOTE | 2025-02-03 06:31 | ECG ---
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
[2025-02-03 09:10] LABS: INR 1.14 (0.9-1.15); Partial Thromboplastin Time 30.6 SEC (24.5-34.5); Prothrombin Time 11.9 sec (9.3-11.8)
[2025-02-03] MEDS: CALCIUM GLUC 1,000mg/50ml-NS 50 ML IV SCH (09:15)
[2025-02-03 09:24] LABS: Opiate Scree,Urine Pos (NEGATIVE)
[2025-02-03 09:25] LABS: Amphetamine Screen, Urine Neg (NEGATIVE); Barbiturate Scree,Urine Neg (NEGATIVE); Benzodiazephine Screen, Urine Neg (NEGATIVE); Cannabinoid Screen, Urine Neg (NEGATIVE); Cocaine Screen, Urine Neg (NEGATIVE); Phencyclidine Screen, Urine Neg (NEGATIVE)
[2025-02-03] MEDS ORDERED: ENOXAPARIN SOD 40 MG/0.4 ML SYRINGE SC SCH (10:00)
[2025-02-03] MEDS: PANTOPRAZOLE 40 MG/10 ML VIAL INJ IV SCH (10:05)
[2025-02-03] MEDS: FERROUS SULFATE 325mg EC TAB PO ONE (10:06)
[2025-02-03] MEDS: CLOPIDOGREL BISULFATE 75 MG TAB PO SCH (10:50)
[2025-02-03] MEDS: SODIUM ZIRCONIUM CYCL 10 GM PAK PO ONE (11:15)
--- NOTE | 2025-02-03 11:22 | ECG ---
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
--- NOTE | 2025-02-03 14:52 | DVHPNRES ---
Progress Note Date Seen: Feb 03, 2025 Resident Creating Document: YELITZA BELTRAN RESDIENT Medical Necessity Reason Pt with a Central, PICC or Fol: No Subjective Review of Systems 69-year-old male with a history of hypertension, diabetes, hyperlipidemia, peripheral arterial disease s/p multiple right-foot partial ray amputations for diabetic foot infection and osteomyelitis, CKD, chronic anemia, hemorrhoids, and diabetic neuropathy. He was recently discharged with a PICC line to complete a 6-week course of antibiotics. He was instructed by his PCP to return due to significantly elevated potassium on outpatient labs. On arrival his potassium was markedly elevated, and his EKG showed ventricular bigeminy. He received calcium, insulin, and bicarbonate with improvement. No chest pain, no dyspnea, no neurological complaints. He came for further evaluation and management of hyperkalemia and abnormal cardiac conduction. PMHx: Hypertension, diabetes, hyperlipidemia, peripheral arterial disease, diabetic foot with osteomyelitis, CKD, anemia, hemorrhoids, diabetic neuropathy, heart failure with EF 4550% (stable). PSHx: Right foot: serial partial ray amputations 1st, 2nd, 3rd, and 4th rays; right foot I&D to bone; right foot bone biopsy. Social History: Lives at home, no smoking, no alcohol, no drugs. Allergies: None. On 05/04, the patient is seen and examined at bedside. Patient is feeling better but still complaining of palpitation and dizziness Objective vital signs Vital Sign Date Time Temp Pulse Resp B/P (MAP) Pulse Ox O2 Delivery O2 Flow Rate FiO2 02/03/25 13:50 98 11 Room Air* 0 21 02/03/25 13:50 97.7 161/89 (113) 94 97.7 Total Intake and Output 02/02/25 02/02/25 02/03/25 14:59 22:59 06:59 Intake Total 50 ml 825 ml Balance 50 ml 825 ml medications Current Medications Medications Dose Ordered Sig/Jessica Route Start Time Stop Time Status Last Admin Dose Admin Furosemide 20 mg DAILY IV 02/02/25 18:00 02/03/25 10:07 20 MG Ceftriaxone Sodium 50 ml @ 100 mls/hr DAILY@09 IV 02/02/25 18:00 02/03/25 09:18 100 MLS/HR Linezolid 300 ml @ 150 mls/hr Q12HR IV 02/02/25 22:00 02/03/25 10:27 150 MLS/HR Sodium Chloride 1,000 ml @ 75 mls/hr [id number] IV 02/02/25 18:00 02/02/25 18:33 75 MLS/HR Clopidogrel Bisulfate 75 mg DAILY PO 02/03/25 10:00 02/03/25 10:50 75 MG Diagnostic Test (Pha) 1 strip ACHS 02/02/25 22:00 02/03/25 11:38 1 STRIP Insulin Human Regular ACHS SC 02/02/25 22:00 02/03/25 12:07 2 UNITS Dextrose 50 ml UD PRN IV 02/02/25 19:45 Ferrous Sulfate 325 mg BIDWM PO 02/03/25 18:00 Pantoprazole Sodium 40 mg DAILY IV 02/03/25 10:00 02/03/25 10:05 40 MG Amlodipine Besylate 10 mg DAILY PO 02/04/25 10:00 Examination General Appearance: Alert, Oriented X3, Cooperative, No acute distress HEENT: Atraumatic, PERRLA, EOMI, Mucous membrane moist/pink Respiratory: Clear to auscultation, Normal air movement Cardiovascular: Regular rate, Normal S1, Normal S2, No murmurs, no chest wall tenderness Abdominal: Normal bowel sounds, Soft, No tenderness, No hepatospenomegaly, No masses Extremities: No clubbing, No cyanosis, No edema, Normal pulses, No tenderness/swelling Skin: No rashes, No breakdown, No significant lesion Neuro: Normal gait, Normal speech, Strength at 5/5 X4 ext, Normal tone, Sensation intact, Cranial nerves 3-12 NL, Reflexes 2+ Psych/Mental Status: Mental status NL, Mood NL laboratory and microbiology Laboratory Tests 02/03/25 05:15 Test 02/03/25 05:15 Range/Units Serum Glucose 218 H 74-106 mg/dL Labs and/or images reviewed: Labs reviewed by me, Image(s) reviewed by me Problem List/Assessment/Plan Problem List/Assessment/Plan Arrhythmia, due to severe hypokalemia Severe hypokalemia, likely due to medication induced/enalapril NSTEMI, type 2, likely due to above Hyponatremia Moderate protein malnutrition S/P partial amputation of right foot digits Right foot osteomyelitis Right foot abscess Right foot cellulitis Right foot diabetic ulcer History of amputation of right foot 1st digit. History of peripheral artery disease status post stent placement Microcytic anemia Thrombocytosis Hypertension HFmrEF with moderate TR and mild MR (LVEF 45-50%) - no exacerbation Dyslipidemia Diabetes Peripheral neuropathy Internal hemorrhoids * EKGs shows, bigeminy, PVCs * Subsequent EKGs shows, normal sinus rhythm with no significant ST or T-wave changes Plan/recommendation: * Hyperkalemia protocol given * IV calcium gluconate * Continue IV antibiotic Rocephin and linezolid * Insulin according to sliding scale * Continue rest of home meds * Consulted wound nurse and podiatry DIET: Renal diet DVT PROPHYLAXIS: Lovenox DISPOSITION: Telemetry Patient's status and plan discussed with the patient. Case discussed with Dr. Jordan. Plan discussed with: Patient, Other (RN) My Orders My Orders Orders - YELITZA BELTRAN RESDIENT Procedure Category Date Status Time Ferrous Sulfate Tablet PHA 02/03/25 In Process 18:00 Pantoprazole PHA 02/03/25 In Process (Protonix) 10:00 Amlodipine Tablet PHA 02/04/25 In Process (Norvasc Tablet) 10:00 Basic Metabolic Panel LAB 02/03/25 Logged 15:00 Visit Coding STANDARD RES Billing Provider: CLYDE HAYNES MD Date of Service if different f: Feb 03, 2025 Common Visit Codes: [id number] INP/OBS CARE(HIGH) YELITZA BELTRAN RESDIENT Feb 03, 2025 14:52
[2025-02-03 15:41] LABS: Potassium 4.7 mmol/L (3.5-5.1)
[2025-02-03 15:42] LABS: Anion Gap 12 (5-15); Carbon Dioxide 24 mmol/L (20-31)
[2025-02-03 15:43] LABS: Calcium 8.7 mg/dL (8.7-10.4)
[2025-02-03 15:47] LABS: BUN/Creatinine Ratio 17.5 (10.0-20.0); Blood Urea Nitrogen 21 mg/dL (9-23)
[2025-02-03 15:51] LABS: Chloride 98 mmol/L (98-107); Glucose 137 mg/dL (74-106); Sodium 134 mmol/L (136-145)
[2025-02-03] MEDS: FERROUS SULFATE 325mg EC TAB PO SCH (18:27)
[2025-02-03] MEDS: HYDROcodone-ACET 5/325MG TAB PO PRN (22:42)
[2025-02-03] MEDS: FUROSEMIDE 20 MG/2 ML VIAL IV ONE (22:43)
[2025-02-03] MEDS: ALBUTEROL SULF 2.5 MG/0.5ML(0.5%) NEB SOLN NEB PRN (22:50)
[2025-02-03] MEDS: IPRATROPIUM BROM 0.5 MG/2.5ML INH SOL NEB PRN (22:51)
[2025-02-04] VITALS (8 sets, daily range): BP systolic 128–170; BP diastolic 72–91; PULSE 77–110; RESP 16–20; TEMP 97.6–98.1; O2SAT 90–100
[2025-02-04] MEDS: LABETALOL HCL 20 MG/4 ML VL IV ONE (02:11)
[2025-02-04] MEDS: ENALAPRIL MALEATE 10 MG TAB PO ONE (04:34)
[2025-02-04 05:42] LABS: Hemoglobin 8.1 g/dL (13.5-17.5); Nucleated Red Blood Cells % 0.0 %
[2025-02-04 05:44] LABS: Hematocrit 26.1 % (41.0-53.0); Mean Corpuscular Hemoglobin 25.0 pg (28.0-32.0); Mean Corpuscular Volume 80.3 fL (80.0-100.0)
[2025-02-04 05:58] LABS: Alanine Aminotransferase 13 U/L (7-40); Albumin 3.4 g/dL (3.2-4.8); Anion Gap 12 (5-15); BUN/Creatinine Ratio 17.4 (10.0-20.0); Bilirubin, Total 0.4 mg/dL (0.2-1.0); Blood Urea Nitrogen 19 mg/dL (9-23); Carbon Dioxide 23 mmol/L (20-31); Potassium 4.8 mmol/L (3.5-5.1); Total Protein 6.5 g/dL (5.7-8.2)
[2025-02-04 06:19] LABS: Alkaline Phosphatase 224 U/L (46-116); Calcium 8.7 mg/dL (8.7-10.4); Chloride 96 mmol/L (98-107); Glucose 178 mg/dL (74-106); Sodium 131 mmol/L (136-145)
[2025-02-04] MEDS: CARVEDILOL 12.5 MG TAB PO SCH (09:44)
[2025-02-04] MEDS ORDERED: ENALAPRIL MALEATE 10 MG TAB PO SCH (10:00)
[2025-02-04 11:45] LABS: Nucleated Red Blood Cells % 0.0 %
[2025-02-04 12:03] LABS: Hematocrit 22.2 % (41.0-53.0); Hemoglobin 7.1 g/dL (13.5-17.5); Mean Corpuscular Hemoglobin 24.9 pg (28.0-32.0); Mean Corpuscular Volume 77.8 fL (80.0-100.0)
[2025-02-04] MEDS ORDERED: CARV6.2551 PO (17:11)
--- NOTE | 2025-02-04 17:12 | DVHDSRES ---
Discharge Summary Date of Admission Resident Creating Document: YELITZA BELTRAN RESDIENT Feb 02, 2025 at 17:24 Date of Discharge: Feb 04, 2025 Labs/Diagnostic Data: Laboratory Results Test 02/04/25 12:10 02/04/25 11:23 02/04/25 04:50 02/03/25 08:30 POC Glucose 172 mg/dl (70-106) White Blood Count 11.7 10^3/uL (4.4-10.8) Red Blood Count 2.85 10^6/uL (4.5-5.90) Hemoglobin 7.1 g/dL (13.5-17.5) Hematocrit 22.2 % (41.0-53.0) Mean Corpuscular Volume 77.8 fL (80.0-100.0) Mean Corpuscular Hemoglobin 24.9 pg (28.0-32.0) Mean Corpuscular Hemoglobin Concent 32.0 g/dL (32.0-36.0) Red Cell Distribution Width 16.8 % (11.8-14.3) Platelet Count 465 10^3/uL (140-450) Mean Platelet Volume 7.6 fL (6.9-10.8) Neutrophils (%) (Auto) 90.7 % (37.0-80.0) Lymphocytes (%) (Auto) 3.7 % (10.0-50.0) Monocytes (%) (Auto) 4.2 % (0.0-12.0) Eosinophils (%) (Auto) 0.7 % (0.0-7.0) Basophils (%) (Auto) 0.7 % (0.0-2.0) Neutrophils # (Auto) 10.6 10 ^3/uL (1.6-8.6) Lymphocytes # (Auto) 0.4 10 ^3/uL (0.4-5.4) Monocytes # (Auto) 0.5 10 ^3/uL (0-1.3) Eosinophils # (Auto) 0.1 10 ^3/uL (0-0.8) Basophils # (Auto) 0.1 10 ^3/uL (0-0.2) Nucleated Red Blood Cells 0.0 % Sodium Level 131 mmol/L (136-145) Potassium Level 4.8 mmol/L (3.5-5.1) Chloride Level 96 mmol/L (98-107) Carbon Dioxide Level 23 mmol/L (20-31) Anion Gap 12 (5-15) Blood Urea Nitrogen 19 mg/dL (9-23) Creatinine 1.09 mg/dL (0.700-1.30) Glomerular Filtration Rate Calc 74 mL/min (>90) BUN/Creatinine Ratio 17.4 (10.0-20.0) Serum Glucose 178 mg/dL (74-106) Calcium Level 8.7 mg/dL (8.7-10.4) Total Bilirubin 0.4 mg/dL (0.2-1.0) Aspartate Amino Transferase (AST) 18 U/L (13-40) Alanine Aminotransferase (ALT) 13 U/L (7-40) Alkaline Phosphatase 224 U/L (46-116) Total Protein 6.5 g/dL (5.7-8.2) Albumin 3.4 g/dL (3.2-4.8) Urine Opiates Screen Pos (NEGATIVE) Urine Fentanyl Screen Neg (NEGATIVE) Urine Barbiturates Screen Neg (NEGATIVE) Urine Phencyclidine Screen Neg (NEGATIVE) Urine Amphetamines Screen Neg (NEGATIVE) Urine Benzodiazepines Screen Neg (NEGATIVE) Urine Cocaine Screen Neg (NEGATIVE) Urine Cannabinoids Screen Neg (NEGATIVE) Test 02/03/25 08:28 02/02/25 18:28 02/02/25 14:08 Prothrombin Time 11.9 sec (9.3-11.8) Prothrombin Time INR 1.14 (0.9-1.15) Activated Partial Thromboplast Time 30.6 SEC (24.5-34.5) Troponin I High Sensitivity 197 ng/L (</=54) Phosphorus Level 2.6 mg/dL (2.4-5.1) Magnesium Level 1.9 mg/dL (1.6-2.6) Iron Level 27 ug/dL (65-175) Total Iron Binding Capacity 201 ug/dL (250-425) Percent Iron Saturation 13.4 % (20-55) Ferritin 85.1 ng/mL (22-322) Other Laboratory Tests 02/04/25 11:23 02/04/25 04:50 Brief Hx & Hospital Course: HISTORY OF PRESENT ILLNESS: 69-year-old male with a history of hypertension, diabetes, hyperlipidemia, peripheral arterial disease s/p multiple right-foot partial ray amputations for diabetic foot infection and osteomyelitis, CKD, chronic anemia, hemorrhoids, and diabetic neuropathy. He was recently discharged with a PICC line to complete a 6-week course of antibiotics. He was instructed by his PCP to return due to significantly elevated potassium on outpatient labs. On arrival his potassium was markedly elevated, and his EKG showed ventricular bigeminy. He received calcium, insulin, and bicarbonate with improvement. No chest pain, no dyspnea, no neurological complaints. He came for further evaluation and management of hyperkalemia and abnormal cardiac conduction. PMHx: Hypertension, diabetes, hyperlipidemia, peripheral arterial disease, diabetic foot with osteomyelitis, CKD, anemia, hemorrhoids, diabetic neuropathy, heart failure with EF 4550% (stable). PSHx: Right foot: serial partial ray amputations 1st, 2nd, 3rd, and 4th rays; right foot I&D to bone; right foot bone biopsy. Social History: Lives at home, no smoking, no alcohol, no drugs. Allergies: None. HOSPITAL COURSE: Patient was admitted to the hospital due to arrhythmia, due to severe hyperkalemia. Patient was started on hyperkalemia protocol including insulin, glucose, calcium gluconate, Lokelma and albuterol. Patient recurrently was developing hyperkalemia, and the patient was given again hyperkalemia protocol. EKG was showing bigeminy and PVCs. Cardiac troponin was also raised which was possibly due to arrhythmia. During hospital admission, home medication including previous given IV antibiotic for diabetic food including Rocephin and linezolid were continued. Rest of home medication including amlodipine, carvedilol, clopidogrel, ferrous sulfate, Lasix, and Protonix were continued during hospital admission. Hypokalemia was possibly due to enalapril, during hospitalization, enalapril was discontinued and was substituted with the carvedilol. On 02/04, the patient was feeling better, the patient's palpitation had improved. Discharge plan discussed with the patient the patient discharged home. DISCHARGE PLAN: Follow up with the PCP within 1 week of the discharge. Follow up with the Podiatry on outpatient basis. Follow up with the discharge Clinic within 1 week of the discharge Continued insulin and Rocephin for the diabetic foot. Discontinue enalapril Start carvedilol 6.25 mg b.i.d. Continue rest of home meds FINAL DIAGNOSIS: Arrhythmia, due to severe hyperkalemia Severe hyperkalemia, likely due to medication induced/enalapril NSTEMI, type 2, likely due to above Hyponatremia Moderate protein malnutrition S/P partial amputation of right foot digits Right foot osteomyelitis Right foot abscess Right foot cellulitis Right foot diabetic ulcer History of amputation of right foot 1st digit. History of peripheral artery disease status post stent placement Microcytic anemia Thrombocytosis Hypertension HFmrEF with moderate TR and mild MR (LVEF 45-50%) - no exacerbation Dyslipidemia Diabetes Peripheral neuropathy Internal hemorrhoids Condition at Discharge: Good Final Diagnosis/Problems List Severe hyperkalemia Discharge Disposition: Home with Health Services Discharge Instruct/Medications Diet: Cardiac 2g Na,low cholest, Renal Activity: No Restrictions, As Tolerated Follow Up/Referral: Follow up with the PCP within 1 week of the discharge. Follow up with the discharge Clinic within 1 week of the discharge. Follow up with the Podiatry on outpatient basis. Medications: Discontinue enalapril. Carvedilol 6. 25 mg b.i.d. Continue rest of meds Scheduled Amlodipine Besylate (Norvasc Tablet), 10 MG PO DAILY Carvedilol (Carvedilol), 6.25 MG PO BID Enalapril Maleate (Enalapril Maleate), 20 MG PO DAILY Furosemide (Lasix), 1 TAB PO BID Rivaroxaban (Xarelto), 1 CAP PO BID, (Reported) Discharge Statement: "Patient was advised to return to the ER or call 911 if any headaches, dizziness, shortness of breath, chest pain, abdominal pain, bleeding, fevers, or worsening of medical condition. Patient was counseled about treatment plan, medications, possible side effects, patientverbalized understanding. All questions were answered to the best of my ability. This discharge took greater then 30 minutes in planning, reviewing documentation, counseling the patient, and discussing with other team members." ASSESSMENT ASSESSMENT Assessment Severe hyperkalemia Visit Coding STANDARD RES Billing Provider: GAYLE FISCHER [employer]CRA[employer]CH[employer] Date of Service if different f: Feb 04, 2025 Common Visit Codes: 78240-REV/OBS DISCH DAY >30min RUBYXINORLANDO RESDIENT Feb 04, 2025 17:12 KAREN FISCHER DO Feb 06, 2025 23:28
== END 2025-02-04 18:18 | disposition home health service (06) | DRG 640 ==
LOC: ER 13:11 → OVERFLOW 17:24 → TELE-WESTW 02-03 17:46
PROVIDERS: ADMIT Internal Medicine; ATTEND Internal Medicine
DX: E87.5 Hyperkalemia (principal); I21.A1 Myocardial infarction type 2; E44.0 Moderate protein-calorie malnutrition; E11.22 Type 2 diabetes mellitus with diabetic chronic kidney disease; E87.1 Hypo-osmolality and hyponatremia; D50.9 Iron deficiency anemia, unspecified; I13.0 Hypertensive heart and chronic kidney disease with heart failure and stage 1 through stage 4 chronic kidney disease, or unspecified chronic kidney disease; N18.9 Chronic kidney disease, unspecified; I50.20 Unspecified systolic (congestive) heart failure; I49.9 Cardiac arrhythmia, unspecified; D75.839 Thrombocytosis, unspecified; E11.51 Type 2 diabetes mellitus with diabetic peripheral angiopathy without gangrene; E11.65 Type 2 diabetes mellitus with hyperglycemia; E78.5 Hyperlipidemia, unspecified; K64.8 Other hemorrhoids; T46.4X5A Adverse effect of angiotensin-converting-enzyme inhibitors, initial encounter; Z89.431 Acquired absence of right foot; Z68.27 Body mass index [BMI] 27.0-27.9, adult; Y92.89 Other specified places as the place of occurrence of the external cause
CPT/HCPCS: 36415; 71045; 80048; 80053; 80307; 82728; 82962; 83540; 83550; 83735; 84100; 84132; 84484; 85025; 85610; 85730; 87040; 87081; 87205; 93005; 94640; 99291; G0378; J1815; J2470

== ENCOUNTER 2025-02-08 19:03 | Emergency (ER) | payer MEDICARE, MEDICAID ==
[~2025-02-08] VITALS: Ht 172.7 cm; Wt 70.0 kg
[~2025-02-08 19:03] MED LIST changes: +CARV6.2551 PO
--- NOTE | 2025-02-08 19:20 | ED.PDOC ---
History of Present Illness HPI Comments 69-year-old male who is Faroese-speaking presents to the ER with spouse and with prior medical history of hypertension, diabetes: Surgical history of right foot surgery and the chief complaint of abnormal labs. Patient reports on recently being discharged on Friday of 02/04/2025 from [facility], then getting his blood drawn on Friday02/07/2025 and got a call earlier today stating to the patient to go to the ER due from the patient having a low hemoglobin of 7.4. Patient notes on having little to no shortness a breath and is mostly asymptomatic. Denies any other symptoms at this time. Denies chills, fever, N/V/D, CP. No other associated symptoms, modifiers, recent injuries or sick contacts present at this time. Chief Complaint: Abnormal LAB's Time Seen by MD: 19:10 Reviewed Notes: Nurses Notes, Medications, Allergies Allergies: Coded Allergies: NO KNOWN ALLERGIES (Unverified , 12/07/24) Home Meds Active Scripts Carvedilol (Carvedilol) 6.25 Mg Tab, 6.25 MG PO BID for 30 Days, #60 TAB 3 Refills Prov:YELITZA BELTRAN RESDIENT 02/04/25 Amlodipine Besylate (NORVASC TABLET) 5 Mg Tb, 10 MG PO DAILY for 30 Days, #60 TAB 3 Refills Prov:GILBERT DAILY MD 12/08/24 Enalapril Maleate (Enalapril Maleate) 10 Mg Tab, 20 MG PO DAILY for 30 Days, #60 TAB 2 Refills Prov:GILBERT DAILY MD 12/08/24 Furosemide (Lasix) 20 Mg Tb, 1 TAB PO BID, #90 TAB 1 Refill Prov:GILBERT DAILY MD 12/08/24 Reported Medications Rivaroxaban (Xarelto) 2.5 Mg Tab, 1 CAP PO BID for 30 Days, #60 02/03/25 Information Source: Patient, Spouse Mode of Arrival: Wheelchair Severity: Moderate Timing: Came on: Suddenly Duration: Since onset Prehospital treatment: None Past Medical History PAST MEDICAL HISTORY: DM, High Lipids, HTN Surgical History (Other): Right foot surgery Family History Family History: Reviewed,noncontributory to illness, Unknown Social History Smoker: Non-Smoker Alcohol: Denies ETOH Use Drugs: Denies Drug Use Lives In: Home Constitutional: denies: chills, diaphoresis, fatigue, fever, malaise, sweats, weakness, others EENTM: denies: blurred vision, double vision, ear bleeding, ear discharge, ear drainage, ear pain, ear ringing, eye pain, eye redness, hearing loss, mouth pain, mouth swelling, nasal discharge, nose bleeding, nose congestion, nose pain, photophobia, tearing, throat pain, throat swelling, voice changes, others Respiratory: reports: shortness of breath; denies: cough, hemoptysis, orthopnea, SOB at rest, SOB with excertion, stridor, wheezing, others Cardiovascular: denies: chest pain, dizzy spells, diaphoresis, Dyspnea on exertion, edema, irregular heart beat, left arm pain, lightheadedness, palpitations, PND, syncope, others Gastrointestinal: denies: abdomen distended, abdominal pain, blood streaked bowels, constipated, diarrhea, dysphagia, difficulty swallowing, hematemesis, melena, nausea, poor appetite, poor fluid intake, rectal bleeding, rectal pain, vomiting, others Genitourinary: denies: burning, dysuria, flank pain, frequency, hematuria, incontinence, penile discharge, penile sore, pain, testicle pain, testicle swelling, urgency, others Neurological: denies: dizziness, fainting, headache, left sided numbness, left sided weakness, numbness, paresthesia, pre-existing deficit, right sided numbness, right sided weakness, seizure, speech problems, tingling, tremors, we akness, others Musculoskeletal: denies: back pain, gout, joint pain, joint swelling, muscle pain, muscle stiffness, neck pain, others Integumetry: denies: bruises, change in color, change in hair/nails, dryness, laceration, lesions, lumps, rash, wounds, others Allergic/Immunocompromised: denies: Difficulty Healing, Frequent Infections, Hives, Itching, others Hematologic/Lymphatic: denies: anemia, blood clots, easy bleeding, easy bruising, swollen glands, others Endocrine: denies: excessive hunger, excessive sweating, excessive thirst, excessive urination, flushing, intolerance to cold, intolerance to heat, unexplained weight gain, unexplained weight loss, others Psychiatric: denies: anxiety, bipolar disorder, depression, hopeless, panic disorder, schizophrenia, sleepless, suicidal, others All Other Systems: Reviewed and Negative Physical Exam General Appearance: No Apparent Distress HEENT: Normal ENT Inspection, Pharynx Normal, TMs Normal Neck: Full Range of Motion, Non-Tender, Normal, Normal Inspection Respiratory: Chest Non-Tender, Lungs Clear, No Accessory Muscle Use, No Respiratory Distress, Normal Breath Sounds Cardiovascular: No Edema, No JVD, No Murmur, No Gallop, Normal Peripheral Pulses, Regular Rate/Rhythm Breast Exam: Deferred Gastrointestinal: No Organomegaly, Non Tender, No Pulsatile Mass, Normal Bowel Sounds, Soft Genitalia: Deferred Pelvic: Deferred Rectal: Deferred Extremities: No calf tenderness, Normal capillary refill, Non-tender, No pedal edema, Other (Right foot is in a boot) Musculoskeletal : Apperance: Normal Neurologic: Alert, corporate sales trainer II-XII nml as Tested, No Motor Deficits, Normal Affect, Normal Mood, No Sensory Deficits Cerebellar Function: Normal Reflexes: Normal Skin: Dry, Normal Color, Warm Lymphatic: No Adenopathy Was a procedure done? Was a procedure done?: No EKG EKG : Pulse Rate (adult): 83 [place]: Normal Cardiac Rhythm: NSR Block: None ST: Nonsp Differential Dx Considerations may include: Generalized weakness, anemia, electrolyte imbalance X-Ray, Labs, Meds, VS Vital Signs Date Time Temp Pulse Resp B/P (MAP) Pulse Ox O2 Delivery O2 Flow Rate FiO2 02/08/25 19:37 83 02/08/25 19:26 87 02/08/25 19:05 97.6 92 18 183/104 98 97.6 Lab Test 02/08/25 19:39 02/08/25 19:34 Range/Units White Blood Count 7.6 # 4.4-10.8 10^3/uL Red Blood Count 3.18 L 4.5-5.90 10^6/uL Hemoglobin 8.2 #L 13.5-17.5 g/dL Hematocrit 24.8 #L 41.0-53.0 % Mean Corpuscular Volume 77.9 L 80.0-100.0 fL Mean Corpuscular Hemoglobin 25.7 L 28.0-32.0 pg Mean Corpuscular Hemoglobin Concent 32.9 32.0-36.0 g/dL Red Cell Distribution Width 16.8 H 11.8-14.3 % Platelet Count 537 H 140-450 10^3/uL Mean Platelet Volume 7.3 6.9-10.8 fL Neutrophils (%) (Auto) 77.0 37.0-80.0 % Lymphocytes (%) (Auto) 11.1 10.0-50.0 % Monocytes (%) (Auto) 8.2 0.0-12.0 % Eosinophils (%) (Auto) 1.8 0.0-7.0 % Basophils (%) (Auto) 1.9 0.0-2.0 % Neutrophils # (Auto) 5.8 1.6-8.6 10 ^3/uL Lymphocytes # (Auto) 0.8 0.4-5.4 10 ^3/uL Monocytes # (Auto) 0.6 0-1.3 10 ^3/uL Eosinophils # (Auto) 0.1 0-0.8 10 ^3/uL Basophils # (Auto) 0.1 0-0.2 10 ^3/uL Nucleated Red Blood Cells 0.1 % Sodium Level Pending Potassium Level Pending Chloride Level Pending Carbon Dioxide Level Pending Anion Gap Pending Blood Urea Nitrogen Pending Creatinine Pending Glomerular Filtration Rate Calc Pending BUN/Creatinine Ratio Pending Serum Glucose Pending Calcium Level Pending POC Glucose 233 H 70-106 mg/dl The Accu-Chek was 233 The CBC shows a hemoglobin of 8.2 and hematocrit of 24.8 At this time, the patient is being discharged and will follow up with the primary care doctor The patient will return to the emergency department's condition worsens. Patient understands and agrees with the management We do not need to transfuse the patient at this time. Time of 1ST Reevaluation: 19:40 Reevaluation 1ST: Unchanged Patient Education/Counseling: Diagnosis, Treatment, Prognosis, Need For Follow Up Family Education/Counseling: Diagnosis, Treatment, Prognosis, Need For Follow Up SEPSIS Sepsis Screen Date sepsis recognized/suspect: Feb 08, 2025 Time Sepsis recognized/suspect: 1907 Recent Procedure: No On Antibiotic Therapy: No Respiratory Rate >20: No Heart Rate >90: Yes Temp<36 C (96.8 F) or >38.3 C: No SBP <90 or MAP <65 mmHG: No New Acute Mental Status Change: No Is the patient on CPAP, BIPAP,: No Physician Orders Basic Metabolic Panel (02/08/25 19:16) Heplock Iv (02/08/25 19:16) Type And Screen (02/08/25 19:16) Electrocardigram (02/08/25 19:39) Vital Signs Date Time Temp Pulse Resp B/P (MAP) Pulse Ox O2 Delivery O2 Flow Rate FiO2 02/08/25 19:37 83 02/08/25 19:26 87 02/08/25 19:05 97.6 92 18 183/104 98 97.6 Laboratory Tests Test 02/08/25 19:39 White Blood Count 7.6 10^3/uL (4.4-10.8) # Departure 1 Departure Time of Disposition: 20:06 Impression: Primary Impression: Anemia of chronic disease Disposition: HOME / SELF CARE / HOMELESS Condition: Fair Discharged With: Self Critical Care Note Critical Care Time?: No Stability Stability form required: No Heart Score Heart Score: Heart Score Response (Comments) Value History N/A 0 EKG N/A 0 Age N/A 0 Risk Factors N/A 0 Troponin N/A 0 Total 0 I personally scribed for JUSTIN ROOT MD ([email or web address]) on 02/08/25 at 19:20. Electronically submitted by Rayshawn Badillo ([email or web address]). JUSTIN ROOT MD Feb 08, 2025 19:20
[2025-02-08 19:52] LABS: Nucleated Red Blood Cells % 0.1 %
[2025-02-08 19:53] LABS: Hematocrit 24.8 % (41.0-53.0); Hemoglobin 8.2 g/dL (13.5-17.5); Mean Corpuscular Hemoglobin 25.7 pg (28.0-32.0); Mean Corpuscular Volume 77.9 fL (80.0-100.0)
[2025-02-08 19:55] LABS: Chloride 99 mmol/L (98-107); Potassium 4.4 mmol/L (3.5-5.1)
[2025-02-08 19:56] LABS: Anion Gap 9 (5-15); Carbon Dioxide 25 mmol/L (20-31)
[2025-02-08 20:09] VITALS: TEMP 97.8
[2025-02-08 20:19] LABS: BUN/Creatinine Ratio 17.8 (10.0-20.0); Blood Urea Nitrogen 23 mg/dL (9-23); Calcium 8.0 mg/dL (8.7-10.4); Glucose 229 mg/dL (74-106); Sodium 133 mmol/L (136-145)
[2025-02-08 20:42] VITALS: O2SAT 97
[2025-02-08 21:18] VITALS: BP 175/90; PULSE 86; RESP 17; O2SAT 98
--- NOTE | 2025-02-09 12:51 | ECG ---
[facility] Test Date: 2025-02-08 Test Time: 19:26:18 Pat Name: JESSICA DUKE Department: [facility] ED Patient ID: [id number] Room: Gender: M Manager Part: JYOTHI : 1955 Requested By: JUSTIN ROOT Order Number: [id number] Reading MD: Sven Wilson Measurements Intervals [place] Rate: 87 P: 54 IA: 130 QRS: 91 QRSD: 91 T: -84 QT: 310 QTc: 373 Interpretive Statements Sinus rhythm Right axis deviation Borderline repolarization abnormality Electronically Signed On 02-10-2025 17:24:18 PST by Sven Wilson Please click the below link to view image of tracing.
== END 2025-02-08 21:51 | disposition home or self-care (01) ==
LOC: ER 19:03
DX: D64.9 Anemia, unspecified (principal); E11.9 Type 2 diabetes mellitus without complications; I10 Essential (primary) hypertension; Z79.899 Other long term (current) drug therapy
CPT/HCPCS: 36415; 80048; 82947; 82962; 85025; 86850; 86900; 86901; 93005